=== PATIENT | male | born 1950 | race Caucasian/White ===

== ENCOUNTER → 2018-02-13 10:41 | Outpatient (CLI) | payer OTHER, SELFPAY ==
[2018-02-13 11:04] LABS: Add Manual Diff / Slide Review NO; Basophils Percent Auto 0.4 % (0-2); Eosinophils Percent Auto 0.7 % (2-4); Hematocrit 38.3 % (41-53); Hemoglobin 13.4 g/dL (13.5-17.5); Lymphocytes Percent Auto 13.7 % (25-40); Mean Corpuscular Hemoglobin 31.3 PG (26-34); Mean Corpuscular Volume 89.3 fL (80-100); Monocytes Percent Auto 5.9 % (3-14); Neutrophils Absolute Auto 5100 /uL (3000-5900); Neutrophils Percent Auto 79.3 % (50-75); Platelet Count 224 X10^3/uL (150-400); Red Blood Cell Count 4.29 X10^6/uL (4.5-5.9); Red Cell Distribution Width 12.4 % (11.6-14.8); White Blood Cell Count 6.5 X10^3/uL (4.5-11.0)
[2018-02-13 11:41] LABS: Alanine Aminotransferase 26 IU/L (21-72); Albumin 4.4 g/dL (3.5-5.0); Albumin Globulin Ratio 1.3 (1.0-2.8); Alkaline Phosphatase 57 U/L (38-126); Aspartate Aminotransferase 24 IU/L (17-59); BUN Creatinine Ratio 27.1 (6-22); Bilirubin Total 1.2 mg/dL (0.2-1.3); Blood Urea Nitrogen 19 mg/dL (9-20); Calcium 9.6 mg/dL (8.4-10.2); Carbon Dioxide 29 mmol/L (22-32); Chloride 103 mmol/L (98-107); Estimated Glomerular Filt Rate > 60.0 mL/min (>60); Globulin 3.3 g/dL (1.7-4.1); Glucose 100 mg/dL (80-110); HEMOLYSIS < 15 (0-50); Potassium 3.7 mmol/L (3.4-5.1); Sodium 142 mmol/L (137-145); Total Protein 7.7 g/dL (6.3-8.2)
[2018-02-13 12:38] LABS: Thyroid Stimulating Hormone 0.43 uIU/mL (0.47-4.68)
== END ==
PROVIDERS: PCP Family Medicine; Visit Provider Family Medicine
DX: R53.83 Other fatigue (principal)
CPT/HCPCS: 36415; 80053; 84439; 84443; 85025

== ENCOUNTER → 2018-02-17 08:02 | Outpatient (CLI) | payer OTHER, SELFPAY ==
--- NOTE | 2018-02-17 08:06 | DI.CT.S_ITS ---
PROCEDURE: CT HEAD/BRAIN WO CON INDICATIONS: DIFFICULTY WITH SPEECH TECHNIQUE: Noncontrast 4.5 mm thick angled axial sections acquired from the foramen magnum to the vertex, with coronal and sagittal reformats. For radiation dose reduction, the following was used: automated exposure control, adjustment of mA and/or kV according to patient size. COMPARISON: None. FINDINGS: Image quality: Excellent. CSF spaces: Basal cisterns are patent. No extra-axial fluid collections. Ventricles are normal in size and shape. Brain: No midline shift. No intracranial masses or hemorrhage. Russell-white matter interface is normal. Skull and face: Calvarium and visualized facial bones are intact, without suspicious lesions. Sinuses: Visualized sinuses and mastoids are clear. IMPRESSION: Source of current symptoms is not seen. No stroke or hemorrhage or mass identified. Dictated by: Darrell Serrano M.D. on 02/17/2018 at 8:54 Approved by: Darrell Serrano M.D. on 02/17/2018 at 8:56
== END ==
PROVIDERS: PCP Family Medicine; Visit Provider Family Medicine
DX: R47.9 Unspecified speech disturbances (principal)
CPT/HCPCS: 70450

== ENCOUNTER 2018-03-11 12:53 | Emergency (ER) | payer OTHER, SELFPAY ==
--- NOTE | 2018-03-11 13:00 | ED.ABDPAIN ---
HPI - Abdominal Pain <KALIN Guaman - Last Filed: 03/11/18 22:20> General Chief Complaint: Abdominal Pain Stated Complaint: cant pee or poop Time Seen by Provider: 03/11/18 12:58 History of Present Illness HPI narrative: 68-year-old male here for complaint of lower abdominal pain with difficulty having a bowel movement and urinating. Patient has had these symptoms for approximately a month and has seen his primary care provider for this he is currently taking Septra and [place] for a sebaceous cyst to his back for the last 3 days. Patient reports that if he sighs or yawns he is able to urinate better and has to sit to urinate. He denies any flank pain. No fevers no chills no nausea or vomiting. Positive p.o. intake. He states last bowel movement was this morning at 8 o'clock and was firm. He denies any trauma to the abdomen. He states the symptoms have not resolved since he was seen by his primary care provider for the same symptoms. MD complaint: abdominal pain Related Data Previous Rx's Medication Instructions Recorded glucosamine sulfate 500 mg tablet 1,000 mg PO BID #30 tab 02/13/18 multivitamin capsule 1 cap PO DAILY #30 cap 02/13/18 hydrocodone 5 mg-acetaminophen 325 1 tab PO Q6H PRN #20 tab 03/08/18 mg tablet sulfamethoxazole 800 1 tab PO BID 7 Days #14 tab 03/08/18 mg-trimethoprim 160 mg tablet magnesium citrate 296 ml PO .one time #296 ml 03/11/18 polyethylene glycol 3350 [Miralax] 17 gram PO DAILY #238 gram 03/11/18 Allergies Allergy/AdvReac Type Severity Reaction Status Date / Time No Known Drug Allergies Allergy Verified 03/11/18 13:05 Review of Systems <KALIN Guaman - Last Filed: 03/11/18 22:20> Constitutional Denies chills, Denies fever(s), Denies lethargy and Denies weakness Eyes Denies change in vision, Denies eye discharge, Denies irritation and Denies loss of vision ENT Ears, Nose, Mouth, and Throat: Denies change in voice, Denies neck pain and Denies sore throat Cardiovascular Denies chest pain, Denies irregular heart rhythm, Denies lightheadedness, Denies palpitations, Denies dyspnea, Denies dyspnea on exertion and Denies orthopnea Respiratory Denies cough, Denies dyspnea, Denies dyspnea on exertion and Denies wheezing Gastrointestinal Gastrointestinal: Reports abdominal pain and Reports constipation Genitourinary Reports difficulty urinating Musculoskeletal Denies neck pain Integumentary/Breasts Denies pruritus, Denies erythema, Denies rash and Denies wounds Neurologic Denies confusion, Denies loss of vision and Denies weakness Psychiatric Denies anxiety, Denies confusion, Denies depression, Denies homicidal ideation and Denies suicidal ideation Endocrine Denies palpitations Hematologic/Lymphatic Denies easy bruising Allergic/Immunologic Denies wheezing Exam <MARIAMA GuamanP - Last Filed: 03/11/18 22:20> Initial Vital Signs Initial Vital Signs: Vital Signs Temperature 98.4 F 03/11/18 13:05 Pulse Rate 82 03/11/18 13:05 Respiratory Rate 15 03/11/18 13:05 Blood Pressure 162/84 H 03/11/18 13:05 Pulse Oximetry 96 03/11/18 13:05 Const General: cooperative and well developed Nutritional Appearance: well nourished Orientation: alert, awake, oriented x3 and not confused [facility] Mouth: oral mucosae normal and moist mucous membranes Eyes Conjunctivae: conjunctivae normal Sclera: sclerae normal Pupils: PERRL EOM: EOM intact bilaterally Resp Effort & Inspection: normal respiratory effort, able to speak in complete sentences, no respiratory distress and no use of accessory muscles Auscultation: clear to auscultation bilaterally, no rales, no rhonchi and no wheezes Cardio Rate: regular rate Rhythm: regular rhythm Heart Sounds: no click, no gallops, no murmurs and no rubs GI Inspection: non-distended Palpation: soft, No hepatomegaly, No hernia, No mass, No pulsatile mass and tender (Suprapubic tenderness) Auscultation: normal bowel sounds General: No CVA tenderness Back/Spine/Pelvis Other: 1.5 cm sebaceous cyst to midline thoracic spine with no induration no fluctuance. Skin General: no rashes or lesions noted, No jaundice and No petechiae <Onel Kaba DO - Last Filed: 03/12/18 07:25> Initial Vital Signs Initial Vital Signs: Vital Signs Temperature 98.4 F 03/11/18 13:05 Pulse Rate 82 03/11/18 13:05 Respiratory Rate 15 03/11/18 13:05 Blood Pressure 162/84 H 03/11/18 13:05 Pulse Oximetry 96 03/11/18 13:05 Course <KALIN Guaman - Last Filed: 03/11/18 22:20> Orders Ordered: Discontinued Medications Sodium Chloride (Normal Saline 0.9%) 1,000 mls @ 150 mls/hr IV CONT ÓSCAR Last Infusion: 03/11/18 15:40 Dose: 0 mls/hr Admin: 03/11/18 13:52 Dose: 150 mls/hr Vital Signs - 8 hr 03/11/18 14:59 Pulse Rate 85 Respiratory Rate 14 Blood Pressure [Right Arm] 143/73 H Pulse Oximetry 97 <Onel Kaba DO - Last Filed: 03/12/18 07:25> Orders Ordered: Discontinued Medications Sodium Chloride (Normal Saline 0.9%) 1,000 mls @ 150 mls/hr IV CONT ÓSCAR Last Infusion: 03/11/18 15:40 Dose: 0 mls/hr Admin: 03/11/18 13:52 Dose: 150 mls/hr Vital Signs - 8 hr 03/11/18 14:59 Pulse Rate 85 Respiratory Rate 14 Blood Pressure [Right Arm] 143/73 H Pulse Oximetry 97 MDM - Abdominal Pain <KALIN Guaman - Last Filed: 03/11/18 22:20> Lab Data Result diagrams: 03/11/18 13:35 03/11/18 13:35 Lab Results 03/11/18 03/11/18 Range/Units 13:35 13:35 WBC 6.0 (4.5-11.0) X10^3/uL RBC 4.11 L (4.5-5.9) X10^6/uL Hgb 12.9 L (13.5-17.5) g/dL Hct 37.6 L (41-53) % MCV 91.4 (80-100) fL MCH 31.3 (26-34) PG MCHC 34.3 (30-36) % RDW 12.8 (11.6-14.8) % Plt Count 236 (150-400) X10^3/uL Neut % (Auto) 77.4 H (50-75) % Lymph % (Auto) 11.7 L (25-40) % [place] % (Auto) 9.6 (3-14) % Eos % (Auto) 0.8 L (2-4) % Baso % (Auto) 0.5 (0-2) % Neut # (Auto) 4600 (5766-7549) /uL Sodium 140 (137-145) mmol/L Potassium 4.1 (3.4-5.1) mmol/L Chloride 103 (98-107) mmol/L Carbon Dioxide 26 (22-32) mmol/L BUN 21 H (9-20) mg/dL Creatinine 0.90 (0.66-1.25) mg/dL Estimated GFR > 60.0 (>60) mL/min BUN/Creatinine Ratio 23.3 H (6-22) Glucose 97 (80-110) mg/dL Calcium 9.2 (8.4-10.2) mg/dL Total Bilirubin 1.2 (0.2-1.3) mg/dL AST 38 (17-59) IU/L ALT 24 (21-72) IU/L Alkaline Phosphatase 48 (38-126) U/L Total Protein 7.3 (6.3-8.2) g/dL Albumin 4.3 (3.5-5.0) g/dL Globulin 3.0 (1.7-4.1) g/dL Albumin/Globulin Ratio 1.4 (1.0-2.8) Lipase 50 (23-300) U/L Point of care testing: Urine Dip Bedside Urine Glucose Negative Bedside Urine Bilirubin - Negative Bedside Urine Ketone ++ 40 Urine Specific [place] 1.02 Bedside Urine Occult Blood - Negative Bedside Urine Protein - Negative Bedside Urine Urobilinogen - Negative Bedside Urine Nitrite - Negative [facility] Narrative Medical decision making narrative: CBC and Chem panel were obtained were unremarkable. Bladder scanner showed 500 mL of urine inside the bladder. Duran catheter was inserted with good drainage of a urine urinalysis was obtained was negative for urinary tract infection. CT of the abdomen was obtained and shows large amount of constipation. Constipation most likely exacerbated by a recent hydrocodone use. Mineral oil Fleet enema and magnesium citrate for the constipation. MiraLax is prescribed to help keep stools loose. Plenty of fluids. Follow up with primary care provider. Differential between BPH and large stool load causing decreased ability to urinate. Patient desired to have Duran catheter removed. Small mass is seen into the pancreas of unknown origin recommend continued monitoring to ensure area is stable. For any worsening symptoms return to the emergency room. <Onel Kaba, - Last Filed: 03/12/18 07:25> Lab Data Lab Results 03/11/18 03/11/18 Range/Units 13:35 13:35 WBC 6.0 (4.5-11.0) X10^3/uL RBC 4.11 L (4.5-5.9) X10^6/uL Hgb 12.9 L (13.5-17.5) g/dL Hct 37.6 L (41-53) % MCV 91.4 (80-100) fL MCH 31.3 (26-34) PG MCHC 34.3 (30-36) % RDW 12.8 (11.6-14.8) % Plt Count 236 (150-400) X10^3/uL Neut % (Auto) 77.4 H (50-75) % Lymph % (Auto) 11.7 L (25-40) % [place] % (Auto) 9.6 (3-14) % Eos % (Auto) 0.8 L (2-4) % Baso % (Auto) 0.5 (0-2) % Neut # (Auto) 4600 (6676-0620) /uL Sodium 140 (137-145) mmol/L Potassium 4.1 (3.4-5.1) mmol/L Chloride 103 (98-107) mmol/L Carbon Dioxide 26 (22-32) mmol/L BUN 21 H (9-20) mg/dL Creatinine 0.90 (0.66-1.25) mg/dL Estimated GFR > 60.0 (>60) mL/min BUN/Creatinine Ratio 23.3 H (6-22) Glucose 97 (80-110) mg/dL Calcium 9.2 (8.4-10.2) mg/dL Total Bilirubin 1.2 (0.2-1.3) mg/dL AST 38 (17-59) IU/L ALT 24 (21-72) IU/L Alkaline Phosphatase 48 (38-126) U/L Total Protein 7.3 (6.3-8.2) g/dL Albumin 4.3 (3.5-5.0) g/dL Globulin 3.0 (1.7-4.1) g/dL Albumin/Globulin Ratio 1.4 (1.0-2.8) Lipase 50 (23-300) U/L Point of care testing: Urine Dip Bedside Urine Glucose Negative Bedside Urine Bilirubin - Negative Bedside Urine Ketone ++ 40 Urine Specific [place] 1.02 Bedside Urine Occult Blood - Negative Bedside Urine Protein - Negative Bedside Urine Urobilinogen - Negative Bedside Urine Nitrite - Negative Discharge Plan Departure Patient Disposition: Home, Self-Care Clinical Impression: Constipation Discharge Date/Time: 03/11/18 15:48 Interventions: ED Discharge Assessment Last Done: 03/11/18 15:47 Instructions: DI for Constipation Activity Restrictions/Additional Instructions: Laboratory results today were unremarkable. CT of the abdomen shows large amount of stool indicating constipation. Constipation may be exacerbated by recent pain medications. Differential between enlarged prostate or a large amount of stool causing difficulty in urination. You are prescribed magnesium citrate a laxative use as directed along with over the counter mineral oil Fleet enema when you return home to facilitate having a bowel movement. You are prescribed MiraLax a laxative also use as directed. CT also showed a small mass to the pancreas which could be benign cyst however needs to be evaluated to ensure is stable and not growing inform primary care provider of this. Follow up with primary care in the next few days for re-evaluation. For any worsening symptoms return to the emergency room. Prescriptions: New magnesium citrate solution 296 ml PO .one time Qty: 296 RF: 0 polyethylene glycol 3350 [Miralax] 17 gram/dose powder 17 gram PO DAILY Qty: 238 RF: 0 No Action hydrocodone-acetaminophen 5-325 mg tablet 1 tab PO Q6H PRN (Reason: pain) Qty: 20 RF: 0 sulfamethoxazole-trimethoprim 800-160 mg tablet 1 tab PO BID 7 Days Qty: 14 RF: 0 multivitamin capsule 1 cap PO DAILY Qty: 30 RF: 0 glucosamine sulfate [Glucosamine] 500 mg tablet 1,000 mg PO BID Qty: 30 RF: 0 Referrals: Paco Magallanes MD [Primary Care Provider] - <Onel Kaba DO - Last Filed: 03/12/18 07:25> Cosign ED Attending Artemature Attestation: I was available for consultation during this patient's emergency department encounter
[2018-03-11 13:05] VITALS: BP 162/84; PULSE 82; RESP 15; TEMP 36.9; O2SAT 96; BMI 26.2
--- NOTE | 2018-03-11 13:17 | DI.CT.S_ITS ---
PROCEDURE: CT ABDOMEN PELVIS W CON INDICATIONS: Lower abdominal pain/suprapubic pain TECHNIQUE: After the administration of intravenous contrast, 5 mm thick sections acquired from the diaphragm to the symphysis. 5 mm coronal and sagittal reformats were acquired. For radiation dose reduction, the following was used: automated exposure control, adjustment of mA and/or kV according to patient size. COMPARISON: None. FINDINGS: Image quality: Excellent. ABDOMEN: Lung bases: Lung bases are clear. Heart size is normal. A small hiatal hernia is noted. Solid organs: Liver is normal in size and enhancement. Gallbladder is normal. Biliary system is non dilated. There is a thin-walled complex cystic mass in the pancreatic tail measuring 2.9 x 3.7 cm. There is no visible enhancement of the cyst. No pancreatic duct dilation in the pancreatic tail. No peripancreatic stranding. Spleen is normal in size and enhancement. No adrenal nodules. There are a couple of non-obstruction stones in the right renal pelvis measuring up to 4 mm. A 2.5 cm simple appearing cyst is noted in the inferior pole of the right kidney. Kidneys demonstrate normal size and enhancement, without hydronephrosis. Peritoneum and bowel: Bowel loops demonstrate normal wall thickness and caliber. There are scattered colonic diverticula. No evidence for acute diverticulitis. No free fluid or air. Nodes and vessels: No retroperitoneal or mesenteric adenopathy by size criteria. Aorta and inferior vena cava are normal in size. Miscellaneous: No ventral hernias. PELVIS: Genitourinary: Bladder wall thickness is normal. Miscellaneous: No inguinal hernias or adenopathy. Bones: No suspicious bony lesions. No vertebral body compression fractures. Degenerative changes in lumbar spine. IMPRESSION: 1. There is a Duran catheter within the bladder. There is air within the anterior aspect of the bladder lumen likely iatrogenic. No bladder wall thickening. Prostate is enlarged. 2. Large amount of stool in colon consistent with constipation. 3. A somewhat partially calcified cyst in the pancreatic tail measuring 2.9 x 2.7 cm. Recommend nonurgent MRI with and without contrast using pancreatic protocol for followup. 4. A couple of nonobstructive right renal calculi. There is a 2.5 cm simple appearing cyst in the right kidney. Dictated by: Diana Beltrán M.D. on 03/11/2018 at 15:06 Approved by: Diana Beltrán M.D. on 03/11/2018 at 15:19
[2018-03-11] MEDS: SODIUM CHLORIDE 0.9% 1,000 ML 150 ML IV (13:52)
[2018-03-11 13:55] LABS: Alanine Aminotransferase 24 IU/L (21-72); Albumin 4.3 g/dL (3.5-5.0); Albumin Globulin Ratio 1.4 (1.0-2.8); Alkaline Phosphatase 48 U/L (38-126); Aspartate Aminotransferase 38 IU/L (17-59); BUN Creatinine Ratio 23.3 (6-22); Bilirubin Total 1.2 mg/dL (0.2-1.3); Blood Urea Nitrogen 21 mg/dL (9-20); Calcium 9.2 mg/dL (8.4-10.2); Carbon Dioxide 26 mmol/L (22-32); Chloride 103 mmol/L (98-107); Estimated Glomerular Filt Rate > 60.0 mL/min (>60); Glucose 97 mg/dL (80-110); HEMOLYSIS 34 (0-50); Lipase 50 U/L (23-300); Potassium 4.1 mmol/L (3.4-5.1); Sodium 140 mmol/L (137-145); Total Protein 7.3 g/dL (6.3-8.2)
[2018-03-11 14:00] LABS: Add Manual Diff / Slide Review NO; Basophils Percent Auto 0.5 % (0-2); Eosinophils Percent Auto 0.8 % (2-4); Hematocrit 37.6 % (41-53); Hemoglobin 12.9 g/dL (13.5-17.5); Lymphocytes Percent Auto 11.7 % (25-40); Mean Corpuscular HGB Conc 34.3 % (30-36); Mean Corpuscular Hemoglobin 31.3 PG (26-34); Mean Corpuscular Volume 91.4 fL (80-100); Monocytes Percent Auto 9.6 % (3-14); Neutrophils Absolute Auto 4600 /uL (3000-5900); Neutrophils Percent Auto 77.4 % (50-75); Red Blood Cell Count 4.11 X10^6/uL (4.5-5.9); Red Cell Distribution Width 12.8 % (11.6-14.8)
[2018-03-11 14:59] VITALS: BP 143/73; PULSE 85; RESP 14; O2SAT 97
[2018-03-11 18:23] LABS: Platelet Count 236 X10^3/uL (150-400)
== END 2018-03-11 15:48 | disposition home or self-care (01) ==
PROVIDERS: Emergency Provider Nurse Practitioner Family; PCP Family Medicine
DX: K59.00 Constipation, unspecified (principal)
CPT/HCPCS: 36591; 51701; 51705; 51798; 74177; 80053; 81003; 83690; 85025; 96360; 96361; 99283; 99285; Q9967

== ENCOUNTER 2018-03-13 06:23 | Emergency (ER) | payer OTHER, SELFPAY ==
[2018-03-13 06:38] VITALS: BP 194/83; PULSE 101; RESP 18; TEMP 36.6; O2SAT 99; BMI 26.8
--- NOTE | 2018-03-13 06:47 | DI.RAD.S_ITS ---
PROCEDURE: XR KUB INDICATIONS: constipation TECHNIQUE: One view of the abdomen acquired. COMPARISON: None. FINDINGS: Surgical changes and devices: None. Bowel: Bowel gas pattern is normal except for generalized colonic obstipation bilaterally through the abdomen and pelvis. Soft tissues: No suspicious abdominal calcifications. Visualized solid organ contours appear normal in size. Bones: No suspicious bony lesions. IMPRESSION: Prominent bilateral colonic obstipation through the abdomen and pelvis extending to the rectum. Dictated by: Darrell Serrano M.D. on 03/13/2018 at 8:22 Approved by: Darrell Serrano M.D. on 03/13/2018 at 8:22
--- NOTE | 2018-03-13 07:08 | ED.MALEGU ---
HPI - Male Genitourinary General Chief complaint: Urogenital-Male Stated complaint: CHECKING BACK IN FOR PAIN/CATHETER History of Present Illness HPI Narrative: HPI 68-year-old male with history of constipation and recent urinary retention presents for evaluation of inability urinate for 24 hours and decreased stooling. Patient reports he is had long-standing issues with constipation, this was worsened when he received a [place] prescription of 20 tablets for painful small abscess on his back. The patient has completed these medications but as had a week with minimal stooling. Patient reports the [place] exacerbated his constipation. Patient denies back pain, notes chronic decreased urine stream, denies change in perineal sensation, or overflow incontinence. M/S/F/SocHx notable for: please see HPI; remainder reviewed with patient and in chart. ROS: Negative constitutional, eye, cardiovascular, pulmonary, GI, , MSK, skin, neurologic, psychiatric, endocrine unless noted in the HPI. Exam Gen: Pleasant, non-toxic appearing, resting comfortably. HEENT: NC, AT, PEERL, EOMI. Resp: Clear to auscultation bilaterally, normal work of breathing, no accessory muscle usage. Card: Regular rate and rhythm with no murmurs, rubs, or gallops, extremities warm and well perfused. GI: Non-tender to palpation throughout all quadrants, no focal tenderness at McBurney's point, negative Diallo's sign, mild diffuse fullness/distention, no rebound or guarding. : No suprapubic tenderness to palpation. MSK: No visible deformities, strength and tone without visually appreciable deficit. Skin: Normal color with no visible lesions. Neuro: AO x 3, no facial asymmetry, vision and hearing WNL. Psych: Mood and affect appropriate. Labs / Imaging: pending. MDM Previous chart, nursing note, labs, imaging, and vitals reviewed. A: 68-year-old male with history of constipation and recent urinary retention presents for evaluation of inability urinate for 24 hours and decreased stooling. Initial evaluation and management the patient's urinary retention performed prior to patient care transferred to Dr. Kaba, the oncoming ED physician. Straight catheterization with urinalysis was ordered as well as a CBC and CMP as well as KB to evaluate for stool burden. Glycerin suppositories, lactulose, and a soapsuds enema were also ordered. Tentatively suspect urinary retention due to likely BPH and constipation, further evaluation and expansion of the differential as appropriate deferred to Dr. Kaba. Impression: constipation, urinary retention (please reference below for remainder of encounter information) Related Data Previous Rx's Medication Instructions Recorded glucosamine sulfate 500 mg tablet 1,000 mg PO BID #30 tab 02/13/18 multivitamin capsule 1 cap PO DAILY #30 cap 02/13/18 hydrocodone 5 mg-acetaminophen 325 1 tab PO Q6H PRN #20 tab 03/08/18 mg tablet sulfamethoxazole 800 1 tab PO BID 7 Days #14 tab 03/08/18 mg-trimethoprim 160 mg tablet magnesium citrate 296 ml PO .one time #296 ml 03/11/18 polyethylene glycol 3350 [Miralax] 17 gram PO DAILY #238 gram 03/11/18 Allergies Allergy/AdvReac Type Severity Reaction Status Date / Time No Known Drug Allergies Allergy Verified 03/11/18 13:05 [facility] Family History Sister Hypothyroidism Father No problems noted. Mother No problems noted. Social History Smoking Status: Never smoker Exam Initial Vital Signs Initial Vital Signs: Vital Signs Temperature 97.9 F 03/13/18 06:38 Pulse Rate 101 H 03/13/18 06:38 Respiratory Rate 18 03/13/18 06:38 Blood Pressure 194/83 H 03/13/18 06:38 Pulse Oximetry 99 03/13/18 06:38 Course Orders Ordered: ED Orders 03/13/18 06:47 XR KUB Stat Complete Blood Count AUTO DIFF Stat Comprehensive Metabolic Panel Stat Urinalysis and Microscopic Stat Discontinued Medications Glycerin (Sani-Supp) 2 each NV NOW ONE Stop: 03/13/18 06:48 Lactulose (Enulose) 20 gm PO NOW ONE Stop: 03/13/18 06:48 Vital Signs - 8 hr 03/13/18 06:38 Temperature 97.9 F Pulse Rate 101 H Respiratory Rate 18 Blood Pressure 194/83 H Pulse Oximetry 99 Discharge Plan Departure Prescriptions: No Action hydrocodone-acetaminophen 5-325 mg tablet 1 tab PO Q6H PRN (Reason: pain) Qty: 20 RF: 0 sulfamethoxazole-trimethoprim 800-160 mg tablet 1 tab PO BID 7 Days Qty: 14 RF: 0 multivitamin capsule 1 cap PO DAILY Qty: 30 RF: 0 glucosamine sulfate [Glucosamine] 500 mg tablet 1,000 mg PO BID Qty: 30 RF: 0 magnesium citrate solution 296 ml PO .one time Qty: 296 RF: 0 polyethylene glycol 3350 [Miralax] 17 gram/dose powder 17 gram PO DAILY Qty: 238 RF: 0
[2018-03-13] MEDS: LACTULOSE 20 GM/30 ML SOLUTION PO (07:22)
[2018-03-13] MEDS: GLYCERIN SUPP ADULT 1 SUPP 2 EACH PR (07:22)
[2018-03-13 07:32] LABS: Appearance Urine UA CLEAR; Bilirubin Urine UA NEGATIVE (NEGATIVE); Color Urine UA YELLOW; Glucose Urine UA NEGATIVE (Normal); Ketones Urine UA TRACE (NEGATIVE); Leukocyte Esterase Urine UA NEGATIVE (NEGATIVE); Nitrite Urine UA Negative (Negative); Occult Blood Urine UA NEGATIVE (Negative); Protein Urine UA NEGATIVE (Negative)
[2018-03-13 07:40] LABS: Bacteria Urine Few (2-10); Culture Indicated Urine Cult Not Indicated; RBC Urine 0-1/HPF (0-5/HPF); WBC Urine 0-1/HPF (0-5/HPF)
[2018-03-13 08:09] LABS: BUN Creatinine Ratio 21.3 (6-22); Blood Urea Nitrogen 17 mg/dL (9-20); Calcium 9.5 mg/dL (8.4-10.2); Carbon Dioxide 27 mmol/L (22-32); Chloride 103 mmol/L (98-107); Estimated Glomerular Filt Rate > 60.0 mL/min (>60); Glucose 110 mg/dL (80-110); HEMOLYSIS < 15 (0-50); Potassium 3.8 mmol/L (3.4-5.1); Sodium 140 mmol/L (137-145)
[2018-03-13 09:13] VITALS: BP 128/77; PULSE 92; RESP 20; O2SAT 99
== END 2018-03-13 09:38 | disposition home or self-care (01) ==
PROVIDERS: Emergency Medicine; Emergency Provider Emergency Medicine; PCP Family Medicine
DX: R33.9 Retention of urine, unspecified (principal)
CPT/HCPCS: 51701; 74018; 80048; 81001; 99284

== ENCOUNTER 2018-03-20 21:23 | Emergency (ER) | payer OTHER, SELFPAY ==
[2018-03-20 21:34] VITALS: BP 191/107; PULSE 87; RESP 18; TEMP 36.4; O2SAT 100; BMI 25.7
--- NOTE | 2018-03-20 21:41 | ED.MALEGU ---
HPI - Male Genitourinary General Chief complaint: Urogenital-Male Stated complaint: TROUBLE URINATION Time Seen by Provider: 03/20/18 21:25 Source: patient Mode of arrival: ambulatory Limitations: no limitations History of Present Illness HPI Narrative: Patient returns to the emergency department with chief complaint inability to urinate over the course of the afternoon. He had been seen here on March 13 for inability to urinate and was determined to have urinary retention. He had a Duran catheter and it was just removed today by his primary care provider. He was able to urinate this afternoon but lost the ability to later in the day. He denies other neurologic symptoms such as numbness, tingling or weakness. He has no back pain or foot drop. About 2 weeks ago the patient was started an opioid pain medication for an abscess on his back which was eventually drained. Additionally he had some constipation which has since resolved. Onset (ago): hour(s) Duration: constant Related Data Previous Rx's Medication Instructions Recorded glucosamine sulfate 500 mg tablet 1,000 mg PO BID #30 tab 02/13/18 multivitamin capsule 1 cap PO DAILY #30 cap 02/13/18 magnesium citrate 296 ml PO .one time #296 ml 03/11/18 polyethylene glycol 3350 [Miralax] 17 gram PO DAILY #238 gram 03/11/18 docusate sodium 100 mg capsule 100 mg PO BID #60 cap 03/13/18 hydrocodone 5 mg-acetaminophen 325 1 tab PO Q6H PRN #20 tab 03/13/18 mg tablet tamsulosin 0.4 mg capsule 0.4 mg PO DAILY #30 cap 03/13/18 zolpidem 10 mg tablet 10 mg PO BEDTIME PRN #20 tab 03/20/18 Allergies Allergy/AdvReac Type Severity Reaction Status Date / Time No Known Drug Allergies Allergy Verified 03/20/18 12:32 Review of Systems Review of Systems All systems reviewed & are unremarkable except as noted in HPI and below Constitutional Denies chills, Denies fever(s), Denies lethargy and Denies weakness Eyes Denies change in vision, Denies eye discharge, Denies irritation and Denies loss of vision ENT Ears, Nose, Mouth, and Throat: Denies change in voice, Denies neck pain and Denies sore throat Cardiovascular Denies chest pain, Denies irregular heart rhythm, Denies lightheadedness, Denies palpitations, Denies dyspnea, Denies dyspnea on exertion and Denies orthopnea Respiratory Denies cough, Denies dyspnea, Denies dyspnea on exertion and Denies wheezing Gastrointestinal Gastrointestinal: Denies abdominal pain, Denies change in bowel habits, Denies diarrhea, Denies nausea and Denies vomiting Genitourinary Denies hematuria, Denies flank pain, Denies urinary incontinence and Denies urinary urgency Comments: Suprapubic tenderness and inability to urinate Musculoskeletal Denies neck pain Integumentary/Breasts Denies pruritus, Denies erythema, Denies rash and Denies wounds Neurologic Denies confusion, Denies loss of vision and Denies weakness Psychiatric Denies anxiety, Denies confusion, Denies depression, Denies homicidal ideation and Denies suicidal ideation Endocrine Denies palpitations Hematologic/Lymphatic Denies easy bruising Allergic/Immunologic Denies wheezing PFSH Social History Smoking Status: Never smoker Exam Narrative Exam Narrative: Pleasant 68-year-old male in mild distress Initial Vital Signs Initial Vital Signs: Vital Signs Temperature 97.6 F 03/20/18 21:34 Pulse Rate 87 03/20/18 21:34 Respiratory Rate 18 03/20/18 21:34 Blood Pressure 191/107 H 03/20/18 21:34 Pulse Oximetry 100 03/20/18 21:34 Const General: cooperative and well developed Nutritional Appearance: well nourished Orientation: alert, awake, oriented x3 and not confused [facility] Head: normocephalic and atraumatic Ears: external ears normal and TM's normal bilaterally Nose: external nose normal and No nasal discharge Face and sinus: sinuses nontender, face symmetric, no sinus tenderness and No dry mucous membranes Mouth: oral mucosae normal and moist mucous membranes Teeth and gingiva: dentition normal Throat: tonsils normal and uvula midline Resp Effort & Inspection: normal respiratory effort, able to speak in complete sentences, no respiratory distress and no use of accessory muscles Auscultation: clear to auscultation bilaterally, no rales, no rhonchi and no wheezes GI Inspection: non-distended Palpation: soft, no hepatosplenomegaly, No guarding, No pulsatile mass and No tender Auscultation: normal bowel sounds Skin General: no rashes or lesions noted, No jaundice and No petechiae Extrem General: full ROM, no clubbing, cyanosis or edema, no pedal edema and no calf tenderness Course Reevaluation(s) Reevaluation #1: Bladder scan notes over 700 mL of urine. Duran catheter placed patient feels much better. Blood pressure normalized Vital Signs - 8 hr 03/20/18 21:34 03/20/18 22:14 Temperature 97.6 F Pulse Rate 87 67 Respiratory Rate 18 14 Blood Pressure 191/107 H Blood Pressure [Right Arm] 135/79 H Pulse Oximetry 100 99 Discharge Plan Departure Patient Disposition: Home, Self-Care Clinical Impression: Acute urinary retention Discharge Date/Time: 03/20/18 22:34 Instructions: DI for Urinary Retention in Men Activity Restrictions/Additional Instructions: *You have been diagnosed with [ acute urinary retention, likely to recent opioid pain medication use ] *What to do: *Follow up with your primary care provider in 2-3 days, call tomorrow for an appointment. Additionally I have included contact info for Urology *Return to ER if you should have any new, worsening or concerning symptoms Prescriptions: No Action tamsulosin 0.4 mg capsule,extended release 24hr 0.4 mg PO DAILY Qty: 30 RF: 2 docusate sodium 100 mg capsule 100 mg PO BID Qty: 60 RF: 1 hydrocodone-acetaminophen 5-325 mg tablet 1 tab PO Q6H PRN (Reason: pain) Qty: 20 RF: 0 multivitamin capsule 1 cap PO DAILY Qty: 30 RF: 0 glucosamine sulfate [Glucosamine] 500 mg tablet 1,000 mg PO BID Qty: 30 RF: 0 zolpidem 10 mg tablet 10 mg PO BEDTIME PRN (Reason: insomnia) Qty: 20 RF: 0 magnesium citrate solution 296 ml PO .one time Qty: 296 RF: 0 polyethylene glycol 3350 [Miralax] 17 gram/dose powder 17 gram PO DAILY Qty: 238 RF: 0 Referrals: Ariela Ferraro MD [Physician] - Paco Magallanes MD [Primary Care Provider] -
--- NOTE | 2018-03-20 21:53 | PC.NURSE ---
Had urinary catheter in place for 8 days due to urinary retention likely caused by use of pain pills - catheter removed at PMD's office earlier today - last void was around 1900 - has been drinking a lot of water to counteract constipation and retention caused by pain medication
[2018-03-20 22:14] VITALS: BP 135/79; PULSE 67; RESP 14; O2SAT 99
== END 2018-03-20 22:34 | disposition home or self-care (01) ==
PROVIDERS: Emergency Provider Emergency Medicine; PCP Family Medicine
DX: R33.8 Other retention of urine (principal)
CPT/HCPCS: 51701; 51798; 99283

== ENCOUNTER 2018-03-24 21:45 | Emergency (ER) | payer OTHER, SELFPAY ==
[2018-03-24 21:58] VITALS: BP 149/77; PULSE 82; RESP 15; TEMP 36.1; O2SAT 99
--- NOTE | 2018-03-24 22:16 | PC.NURSE ---
H/O indwelling catheter x 4 r/t urinary retention after surgery. Had cath removed today and voided small amount x 4 but no void since 1799.
[2018-03-24 22:21] LABS: Bacteria Urine None Seen; RBC Urine None Seen (0-5/HPF); WBC Urine None Seen (0-5/HPF)
[2018-03-24 22:22] LABS: Appearance Urine UA CLEAR; Bilirubin Urine UA NEGATIVE (NEGATIVE); Color Urine UA YELLOW; Glucose Urine UA NEGATIVE (Normal); Ketones Urine UA TRACE (NEGATIVE); Leukocyte Esterase Urine UA NEGATIVE (NEGATIVE); Nitrite Urine UA Negative (Negative); Occult Blood Urine UA NEGATIVE (Negative); Protein Urine UA NEGATIVE (Negative); Specific Gravity Urine UA <=1.005 (1.000-1.035); Urobilinogen Urine UA 0.2 E.U./dL (0.2)
[2018-03-24 22:47] LABS: Culture Indicated Urine Cult Not Indicated
[2018-03-24 23:18] VITALS: BP 130/68; PULSE 72; RESP 12; O2SAT 99
--- NOTE | 2018-03-25 02:04 | ED_ITS ---
HPI - Male Genitourinary General Chief complaint: Urogenital-Male Stated complaint: states Need a catheter inserted Time Seen by Provider: 03/24/18 21:50 Source: patient Mode of arrival: ambulatory Limitations: no limitations History of Present Illness HPI Narrative: 68-year-old male with known enlarged prostate and history of urinary retention presents with the chief complaint suprapubic tenderness and inability to urinate over the course of the day. He just was seen by Urology today and had a Duran catheter removed. He states he has been unable to urinate over the course of the evening. He denies any fever or chills nor nausea or vomiting. He denies chest pain or shortness of breath. Onset (ago): hour(s) Duration: constant Location: abdomen Severity: moderate Quality: aching Relieving factors: none Exacerbating factors: none Related Data Previous Rx's Medication Instructions Recorded glucosamine sulfate 500 mg tablet 1,000 mg PO BID #30 tab 02/13/18 multivitamin capsule 1 cap PO DAILY #30 cap 02/13/18 magnesium citrate 296 ml PO .one time #296 ml 03/11/18 polyethylene glycol 3350 [Miralax] 17 gram PO DAILY #238 gram 03/11/18 docusate sodium 100 mg capsule 100 mg PO BID #60 cap 03/13/18 hydrocodone 5 mg-acetaminophen 325 1 tab PO Q6H PRN #20 tab 03/13/18 mg tablet tamsulosin 0.4 mg capsule 0.4 mg PO DAILY #30 cap 03/13/18 zolpidem 10 mg tablet 10 mg PO BEDTIME PRN #20 tab 03/20/18 Allergies Allergy/AdvReac Type Severity Reaction Status Date / Time No Known Drug Allergies Allergy Verified 03/24/18 21:58 Review of Systems Review of Systems All systems reviewed & are unremarkable except as noted in HPI and below Constitutional Denies chills, Denies fever(s), Denies lethargy and Denies weakness Eyes Denies change in vision, Denies eye discharge, Denies irritation and Denies loss of vision ENT Ears, Nose, Mouth, and Throat: Denies change in voice, Denies neck pain and Denies sore throat Cardiovascular Denies chest pain, Denies irregular heart rhythm, Denies lightheadedness, Denies palpitations, Denies dyspnea, Denies dyspnea on exertion and Denies orthopnea Respiratory Denies cough, Denies dyspnea, Denies dyspnea on exertion and Denies wheezing Gastrointestinal Gastrointestinal: Denies abdominal pain, Denies change in bowel habits, Denies diarrhea, Denies nausea and Denies vomiting Genitourinary Denies hematuria, Reports difficulty urinating, Denies flank pain, Denies urinary incontinence and Denies urinary urgency Musculoskeletal Denies neck pain Integumentary/Breasts Denies pruritus, Denies erythema, Denies rash and Denies wounds Neurologic Denies confusion, Denies loss of vision and Denies weakness Psychiatric Denies anxiety, Denies confusion, Denies depression, Denies homicidal ideation and Denies suicidal ideation Endocrine Denies palpitations Hematologic/Lymphatic Denies easy bruising Allergic/Immunologic Denies wheezing PFSH Social History Smoking Status: Never smoker Exam Initial Vital Signs Initial Vital Signs: Vital Signs Temperature 97.0 F L 03/24/18 21:58 Pulse Rate 82 03/24/18 21:58 Respiratory Rate 15 03/24/18 21:58 Blood Pressure 149/77 H 03/24/18 21:58 Pulse Oximetry 99 03/24/18 21:58 Const General: cooperative and well developed Nutritional Appearance: well nourished Orientation: alert, awake, oriented x3 and not confused Eyes General: appearance normal, both eyes and all related structures Eyelids: eyelids normal Conjunctivae: conjunctivae normal Sclera: sclerae normal Pupils: PERRL EOM: EOM intact bilaterally Resp Effort & Inspection: normal respiratory effort, able to speak in complete sentences, no respiratory distress and no use of accessory muscles Auscultation: clear to auscultation bilaterally, no rales, no rhonchi and no wheezes GI Inspection: non-distended Palpation: soft, no hepatosplenomegaly, No guarding, No pulsatile mass and tender (Mild suprapubic tenderness) Auscultation: normal bowel sounds Back/Spine/Pelvis Back: No CVA tenderness Cervical Spine: cervical ROM normal and No pain with cervical ROM Thoracic/Lumbar Spine: thoracic and lumbar spine normal to inspection Skin General: no rashes or lesions noted, No jaundice and No petechiae Extrem General: full ROM, no clubbing, cyanosis or edema, no pedal edema and no calf tenderness Course Orders Ordered: ED Orders 03/24/18 22:10 Urinalysis and Microscopic Stat Reevaluation(s) Reevaluation #1: Large amount of urine residual after bladder scan. Duran catheter placed and patient feels near complete resolution of symptoms Vital Signs - 8 hr 03/24/18 21:58 03/24/18 23:18 Temperature 97.0 F L Pulse Rate 82 72 Respiratory Rate 15 12 Blood Pressure 149/77 H Blood Pressure [Left Arm] 130/68 H Pulse Oximetry 99 99 MDM - Male Genitourinary Lab Data Lab Results 03/24/18 Range/Units 22:10 Urine Color Yellow Urine Appearance Clear Urine pH 7.0 (4.5-8.0) Ur Specific [place] <=1.005 (1.000-1.035) Urine Protein Negative (Negative) Urine Glucose (UA) Negative (Normal) g/dL Urine Ketones Trace H (NEGATIVE) Urine Occult Blood Negative (Negative) Urine Nitrate Negative (Negative) Urine Bilirubin Negative (NEGATIVE) Urine Urobilinogen 0.2 (0.2) E.U./dL Ur Leukocyte Esterase Negative (NEGATIVE) Urine RBC None seen (0-5/HPF) Urine WBC None seen (0-5/HPF) Urine Bacteria None seen (None) Ur Culture Indicated? Cult not indicated Micro UA Comment Not Reportable Discharge Plan Departure Patient Disposition: Home, Self-Care Clinical Impression: Acute urinary retention Discharge Date/Time: 03/24/18 23:38 Interventions: ED Discharge Assessment Last Done: 03/24/18 23:37 Instructions: DI for Urinary Retention in Men Activity Restrictions/Additional Instructions: *You have been diagnosed with [acute urinary retention] *What to do: *Take medications as directed *Follow up with your primary care provider in 2-3 days, call for an appointment. Let them know you were seen in the Emergency Department and that we ask that you be seen in follow up *Return to ER if you should have any new, worsening or concerning symptoms , such as [ shortness of breath, fever or chills] Prescriptions: No Action tamsulosin 0.4 mg capsule,extended release 24hr 0.4 mg PO DAILY Qty: 30 RF: 2 docusate sodium 100 mg capsule 100 mg PO BID Qty: 60 RF: 1 hydrocodone-acetaminophen 5-325 mg tablet 1 tab PO Q6H PRN (Reason: pain) Qty: 20 RF: 0 multivitamin capsule 1 cap PO DAILY Qty: 30 RF: 0 glucosamine sulfate [Glucosamine] 500 mg tablet 1,000 mg PO BID Qty: 30 RF: 0 zolpidem 10 mg tablet 10 mg PO BEDTIME PRN (Reason: insomnia) Qty: 20 RF: 0 magnesium citrate solution 296 ml PO .one time Qty: 296 RF: 0 polyethylene glycol 3350 [Miralax] 17 gram/dose powder 17 gram PO DAILY Qty: 238 RF: 0 Referrals: Ariela Ferraro MD [Physician] - Paco Magallanes MD [Primary Care Provider] -
== END 2018-03-24 23:38 | disposition home or self-care (01) ==
PROVIDERS: Emergency Provider Emergency Medicine; PCP Family Medicine
DX: R33.9 Retention of urine, unspecified (principal)
CPT/HCPCS: 51701; 51798; 81001; 99283

== ENCOUNTER 2018-04-25 05:05 | Emergency (ER) | payer OTHER, SELFPAY ==
[2018-04-25 05:09] VITALS: BP 174/101; PULSE 102; RESP 16; TEMP 37; O2SAT 100; BMI 54.1
--- NOTE | 2018-04-25 05:13 | PC.NURSE ---
pt states catheter is leaking. catheter placed 7-18 in preperation for surgery. Pt requesting changing catheter. denies: pain, fever, any abdominal discomfort. reports catheter placed for urinairy retention.
--- NOTE | 2018-04-25 05:16 | PC.NURSE ---
this nurse present when Kathya MELLO removed and replaced catheter.
[2018-04-25 05:32] LABS: Appearance Urine UA CLEAR; Bilirubin Urine UA NEGATIVE (NEGATIVE); Glucose Urine UA NEGATIVE (Normal); Ketones Urine UA NEGATIVE (NEGATIVE); Leukocyte Esterase Urine UA 2+ (NEGATIVE); Nitrite Urine UA Negative (Negative); Occult Blood Urine UA 2+ (Negative); Protein Urine UA NEGATIVE (Negative); RBC Urine None Seen (0-5/HPF); Specific Gravity Urine UA <=1.005 (1.000-1.035); Urobilinogen Urine UA 0.2 E.U./dL (0.2)
--- NOTE | 2018-04-25 05:32 | PC.NURSE ---
provider aware of hypertention
[2018-04-25 05:46] LABS: Color Urine UA Straw
[2018-04-25 05:48] LABS: Bacteria Urine Few (2-10); WBC Urine 5-10/HPF (0-5/HPF)
[2018-04-25 05:49] LABS: Culture Indicated Urine Specimen Cultured
--- NOTE | 2018-04-25 05:51 | ED.MALEGU ---
HPI - Male Genitourinary General Chief complaint: Urogenital-Male Stated complaint: Cath leaking Time Seen by Provider: 04/25/18 05:20 Source: patient Mode of arrival: ambulatory Limitations: no limitations History of Present Illness HPI Narrative: Patient is a 68-year-old male who presents with his need for Duran catheter bag changed. He said he noticed it leaking. Initially was placed 03/24/2018. He is scheduled for cystoscopy this week with Urology. He has not had any fever chills abdominal pain nausea or vomiting. His he does want a catheter looked at. He has not had any blood or hematuria. Related Data Previous Rx's Medication Instructions Recorded glucosamine sulfate 500 mg tablet 1,000 mg PO BID #30 tab 02/13/18 multivitamin capsule 1 cap PO DAILY #30 cap 02/13/18 magnesium citrate 296 ml PO .one time #296 ml 03/11/18 polyethylene glycol 3350 [Miralax] 17 gram PO DAILY #238 gram 03/11/18 docusate sodium 100 mg capsule 100 mg PO BID #60 cap 03/13/18 hydrocodone 5 mg-acetaminophen 325 1 tab PO Q6H PRN #20 tab 03/13/18 mg tablet tamsulosin 0.4 mg capsule 0.4 mg PO DAILY #30 cap 03/13/18 diazepam 5 mg tablet 5 mg PO BEDTIME PRN #30 tab 04/05/18 sulfamethoxazole-trimethoprim 1 tab PO BID 7 Days #14 tab 04/25/18 [Bactrim DS] Allergies Allergy/AdvReac Type Severity Reaction Status Date / Time No Known Drug Allergies Allergy Verified 03/24/18 21:58 Review of Systems Review of Systems GENERAL: Denies chills,fever HEENT: Denies throat pain RESPIRATORY: Denies dyspnea, cough, wheezing CARDIOVASCULAR: Denies chest pain, palpitations : See HPI GASTROINTESTINAL: Denies nausea, vomiting MUSCULOSKELETAL: Denies extremity pain, injury SKIN: No rash, no laceration, no pruritus NEUROLOGIC: Denies weakness, dizziness, headache, numbness 8 point review of systems is negative except for those stated above and HPI [facility] Medical History Sebaceous cyst (Chronic) Excessive daytime sleepiness (Chronic) Low back pain (Chronic) Weak urine stream (Chronic) Difficulty passing stool (Chronic) Fatigue (Chronic) Difficulty with speech (Chronic) Constipation (Inactive) Surgical History S/P inguinal hernia repair (Chronic) Social History Smoking Status: Never smoker Exam Initial Vital Signs Initial Vital Signs: Vital Signs Temperature 98.6 F 04/25/18 05:09 Pulse Rate 102 H 04/25/18 05:09 Respiratory Rate 16 04/25/18 05:09 Blood Pressure 174/101 H 04/25/18 05:09 Pulse Oximetry 100 04/25/18 05:09 GENERAL: Well-appearing, well-nourished and in no acute distress. HEENT: Head atraumatic,EOMI, pupils reactive, neck is supple CARDIOVASCULAR: Regular rate and rhythm without murmurs, rubs or gallops. RESPIRATORY: Breath sounds equal bilaterally, no wheezes rales or rhonchi. ABDOMEN: Soft, nontender. Normoactive bowel sounds all 4 quadrants. No guarding or rebound. : Duran catheter in placed no CVA tenderness or suprapubic pain EXTREMITIES: Normal range of motion, no clubbing or edema. Neurovascularly intact NEUROLOGICAL: Alert and oriented x4.Normal gait and speech. SKIN: Warm, dry, no laceration, no petechiae, no rashes or lesions. Course Orders Ordered: ED Orders 04/25/18 05:20 Urinalysis and Microscopic Stat Urine Culture Stat Discontinued Medications Trimethoprim/Sulfamethoxazole (Bactrim Ds Prepack) 1 bottle [facility] [place] Stop: 04/25/18 05:56 Last Admin: 04/25/18 06:01 Dose: 1 bottle Vital Signs - 8 hr 04/25/18 05:09 04/25/18 06:08 Temperature 98.6 F Pulse Rate 102 H 88 Respiratory Rate 16 18 Blood Pressure 174/101 H 146/76 H Pulse Oximetry 100 98 MDM - Male Genitourinary Lab Data Attestation: I reviewed the patient's lab results. Lab Results 04/25/18 Range/Units 05:20 Urine Color Straw Urine Appearance Clear Urine pH 7.0 (4.5-8.0) Ur Specific [place] <=1.005 (1.000-1.035) Urine Protein Negative (Negative) Urine Glucose (UA) Negative (Normal) g/dL Urine Ketones Negative (NEGATIVE) Urine Occult Blood 2+ H (Negative) Urine Nitrate Negative (Negative) Urine Bilirubin Negative (NEGATIVE) Urine Urobilinogen 0.2 (0.2) E.U./dL Ur Leukocyte Esterase 2+ H (NEGATIVE) Urine RBC None seen (0-5/HPF) Urine WBC 5-10/hpf H (0-5/HPF) Urine Bacteria Few (2-10) H (None) Ur Culture Indicated? Specimen cultured MDM Narrative Medical decision making narrative: Patient is due for cystoscopy this week I Will put him on antibiotics. It is possibly is a colonized infection. Discharge Plan Departure Patient Disposition: Home, Self-Care Clinical Impression: UTI (urinary tract infection) Interventions: ED Discharge Assessment Last Done: 04/25/18 06:08 Instructions: DI for Urinary Tract Infection (UTI) Activity Restrictions/Additional Instructions: *You have been diagnosed with UTI *Continue to take medications as directed Bactrim 1 pill twice a day for 7 days- faxed to [facility] in [place] *Follow up with your primary care provider in 2-3 days *follow up with Urology this week as scheduled *Return to ER if you should have fever, abdominal pain or any new, worsening or concerning symptoms Prescriptions: New sulfamethoxazole-trimethoprim [Bactrim DS] 800-160 mg tablet 1 tab PO BID 7 Days Qty: 14 RF: 0 No Action tamsulosin 0.4 mg capsule,extended release 24hr 0.4 mg PO DAILY Qty: 30 RF: 2 docusate sodium 100 mg capsule 100 mg PO BID Qty: 60 RF: 1 hydrocodone-acetaminophen 5-325 mg tablet 1 tab PO Q6H PRN (Reason: pain) Qty: 20 RF: 0 multivitamin capsule 1 cap PO DAILY Qty: 30 RF: 0 glucosamine sulfate [Glucosamine] 500 mg tablet 1,000 mg PO BID Qty: 30 RF: 0 diazepam 5 mg tablet 5 mg PO BEDTIME PRN (Reason: sleep) Qty: 30 RF: 0 magnesium citrate solution 296 ml PO .one time Qty: 296 RF: 0 polyethylene glycol 3350 [Miralax] 17 gram/dose powder 17 gram PO DAILY Qty: 238 RF: 0
--- NOTE | 2018-04-25 05:54 | ED_ITS ---
HPI - Male Genitourinary General Chief complaint: Urogenital-Male Stated complaint: Cath leaking Time Seen by Provider: 04/25/18 05:20 Source: patient Mode of arrival: ambulatory Limitations: no limitations History of Present Illness HPI Narrative: Patient is a 68-year-old male who presents with his need for Duran catheter bag changed. He said he noticed it leaking. Initially was placed 03/24/2018. He is scheduled for cystoscopy this week with Urology. He has not had any fever chills abdominal pain nausea or vomiting. His he does want a catheter looked at. He has not had any blood or hematuria. Related Data Previous Rx's Medication Instructions Recorded glucosamine sulfate 500 mg tablet 1,000 mg PO BID #30 tab 02/13/18 multivitamin capsule 1 cap PO DAILY #30 cap 02/13/18 magnesium citrate 296 ml PO .one time #296 ml 03/11/18 polyethylene glycol 3350 [Miralax] 17 gram PO DAILY #238 gram 03/11/18 docusate sodium 100 mg capsule 100 mg PO BID #60 cap 03/13/18 hydrocodone 5 mg-acetaminophen 325 1 tab PO Q6H PRN #20 tab 03/13/18 mg tablet tamsulosin 0.4 mg capsule 0.4 mg PO DAILY #30 cap 03/13/18 diazepam 5 mg tablet 5 mg PO BEDTIME PRN #30 tab 04/05/18 sulfamethoxazole-trimethoprim 1 tab PO BID 7 Days #14 tab 04/25/18 [Bactrim DS] Allergies Allergy/AdvReac Type Severity Reaction Status Date / Time No Known Drug Allergies Allergy Verified 03/24/18 21:58 Review of Systems Review of Systems GENERAL: Denies chills,fever HEENT: Denies throat pain RESPIRATORY: Denies dyspnea, cough, wheezing CARDIOVASCULAR: Denies chest pain, palpitations : See HPI GASTROINTESTINAL: Denies nausea, vomiting MUSCULOSKELETAL: Denies extremity pain, injury SKIN: No rash, no laceration, no pruritus NEUROLOGIC: Denies weakness, dizziness, headache, numbness 8 point review of systems is negative except for those stated above and HPI [facility] Medical History Sebaceous cyst (Chronic) Excessive daytime sleepiness (Chronic) Low back pain (Chronic) Weak urine stream (Chronic) Difficulty passing stool (Chronic) Fatigue (Chronic) Difficulty with speech (Chronic) Constipation (Inactive) Surgical History S/P inguinal hernia repair (Chronic) Social History Smoking Status: Never smoker Exam Initial Vital Signs Initial Vital Signs: Vital Signs Temperature 98.6 F 04/25/18 05:09 Pulse Rate 102 H 04/25/18 05:09 Respiratory Rate 16 04/25/18 05:09 Blood Pressure 174/101 H 04/25/18 05:09 Pulse Oximetry 100 04/25/18 05:09 GENERAL: Well-appearing, well-nourished and in no acute distress. HEENT: Head atraumatic,EOMI, pupils reactive, neck is supple CARDIOVASCULAR: Regular rate and rhythm without murmurs, rubs or gallops. RESPIRATORY: Breath sounds equal bilaterally, no wheezes rales or rhonchi. ABDOMEN: Soft, nontender. Normoactive bowel sounds all 4 quadrants. No guarding or rebound. : Duran catheter in placed no CVA tenderness or suprapubic pain EXTREMITIES: Normal range of motion, no clubbing or edema. Neurovascularly intact NEUROLOGICAL: Alert and oriented x4.Normal gait and speech. SKIN: Warm, dry, no laceration, no petechiae, no rashes or lesions. Course Orders Ordered: ED Orders 04/25/18 05:20 Urinalysis and Microscopic Stat Urine Culture Stat Discontinued Medications Trimethoprim/Sulfamethoxazole (Bactrim Ds Prepack) 1 bottle [facility] ONE Stop: 04/25/18 05:56 Last Admin: 04/25/18 06:01 Dose: 1 bottle Vital Signs - 8 hr 04/25/18 05:09 04/25/18 06:08 Temperature 98.6 F Pulse Rate 102 H 88 Respiratory Rate 16 18 Blood Pressure 174/101 H 146/76 H Pulse Oximetry 100 98 MDM - Male Genitourinary Lab Data Attestation: I reviewed the patient's lab results. Lab Results 04/25/18 Range/Units 05:20 Urine Color Straw Urine Appearance Clear Urine pH 7.0 (4.5-8.0) Ur Specific [place] <=1.005 (1.000-1.035) Urine Protein Negative (Negative) Urine Glucose (UA) Negative (Normal) g/dL Urine Ketones Negative (NEGATIVE) Urine Occult Blood 2+ H (Negative) Urine Nitrate Negative (Negative) Urine Bilirubin Negative (NEGATIVE) Urine Urobilinogen 0.2 (0.2) E.U./dL Ur Leukocyte Esterase 2+ H (NEGATIVE) Urine RBC None seen (0-5/HPF) Urine WBC 5-10/hpf H (0-5/HPF) Urine Bacteria Few (2-10) H (None) Ur Culture Indicated? Specimen cultured MDM Narrative Medical decision making narrative: Patient is due for cystoscopy this week I Will put him on antibiotics. It is possibly is a colonized infection. Discharge Plan Departure Patient Disposition: Home, Self-Care Clinical Impression: UTI (urinary tract infection) Interventions: ED Discharge Assessment Last Done: 04/25/18 06:08 Instructions: DI for Urinary Tract Infection (UTI) Activity Restrictions/Additional Instructions: *You have been diagnosed with UTI *Continue to take medications as directed Bactrim 1 pill twice a day for 7 days- faxed to [facility] in [place] *Follow up with your primary care provider in 2-3 days *follow up with Urology this week as scheduled *Return to ER if you should have fever, abdominal pain or any new, worsening or concerning symptoms Prescriptions: New sulfamethoxazole-trimethoprim [Bactrim DS] 800-160 mg tablet 1 tab PO BID 7 Days Qty: 14 RF: 0 No Action tamsulosin 0.4 mg capsule,extended release 24hr 0.4 mg PO DAILY Qty: 30 RF: 2 docusate sodium 100 mg capsule 100 mg PO BID Qty: 60 RF: 1 hydrocodone-acetaminophen 5-325 mg tablet 1 tab PO Q6H PRN (Reason: pain) Qty: 20 RF: 0 multivitamin capsule 1 cap PO DAILY Qty: 30 RF: 0 glucosamine sulfate [Glucosamine] 500 mg tablet 1,000 mg PO BID Qty: 30 RF: 0 diazepam 5 mg tablet 5 mg PO BEDTIME PRN (Reason: sleep) Qty: 30 RF: 0 magnesium citrate solution 296 ml PO .one time Qty: 296 RF: 0 polyethylene glycol 3350 [Miralax] 17 gram/dose powder 17 gram PO DAILY Qty: 238 RF: 0
[2018-04-25] MEDS: SULFA/TRIMETH 800/160 PREPACK 1 BOTTLE MISC (06:01)
[2018-04-25 06:08] VITALS: BP 146/76; PULSE 88; RESP 18; O2SAT 98
== END 2018-04-25 06:19 | disposition home or self-care (01) ==
PROVIDERS: Emergency Provider Emergency Medicine; PCP Family Medicine
DX: N39.0 Urinary tract infection, site not specified (principal)
CPT/HCPCS: 51701; 51705; 81001; 87077; 87086; 87186; 99283

== ENCOUNTER 2018-05-09 19:38 | Emergency (ER) | payer OTHER, SELFPAY ==
[2018-05-09 19:58] VITALS: BP 189/86; PULSE 96; RESP 18; TEMP 36.5; O2SAT 98; BMI 25.9
--- NOTE | 2018-05-09 20:31 | PC.NURSE ---
Pt is scheduled for TURP due to prostate problems. Had a catheter removed at 10 am this morning. Has voided 4 times today with last time being at 1730. Since then he has not been able to void and feels like he is retaining urine. 282 mL in bladder, per bladder scan
[2018-05-09 20:59] VITALS: BP 148/80; PULSE 80; RESP 14; O2SAT 97
--- NOTE | 2018-05-09 21:40 | ED.MALEGU ---
HPI - Male Genitourinary General Chief complaint: Urogenital-Male Stated complaint: STATES HE NEEDS A CAPITATOR PUT IN Time Seen by Provider: 05/09/18 20:09 Source: patient Mode of arrival: ambulatory Limitations: no limitations History of Present Illness HPI Narrative: Patient states he has a history of urinary retention, and just had his catheter removed earlier today. Patient states he is again unable to urinate. He would like the catheter replaced. Patient does have a urologist that he is following with. MD Complaint: other (Urinary retention) Onset (ago): hour(s) (Last urination was about 8 hr ago.) Duration: constant (No pain) Relieving factors: urination Exacerbating factors: none indwelling catheter Reports denies other symptoms Related Data Previous Rx's Medication Instructions Recorded glucosamine sulfate 500 mg tablet 1,000 mg PO BID #30 tab 02/13/18 multivitamin capsule 1 cap PO DAILY #30 cap 02/13/18 magnesium citrate 296 ml PO .one time #296 ml 03/11/18 polyethylene glycol 3350 [Miralax] 17 gram PO DAILY #238 gram 03/11/18 docusate sodium 100 mg capsule 100 mg PO BID #60 cap 03/13/18 hydrocodone 5 mg-acetaminophen 325 1 tab PO Q6H PRN #20 tab 03/13/18 mg tablet tamsulosin 0.4 mg capsule 0.4 mg PO DAILY #30 cap 03/13/18 diazepam 5 mg tablet 5 mg PO BEDTIME PRN #30 tab 05/02/18 Allergies Allergy/AdvReac Type Severity Reaction Status Date / Time No Known Drug Allergies Allergy Verified 05/09/18 20:01 Review of Systems Review of Systems All systems reviewed & are unremarkable except as noted in HPI and below Constitutional Denies chills, Denies fever(s), Denies lethargy and Denies weakness Eyes Denies change in vision, Denies eye discharge, Denies irritation and Denies loss of vision ENT Ears, Nose, Mouth, and Throat: Denies change in voice, Denies neck pain and Denies sore throat Cardiovascular Denies chest pain, Denies irregular heart rhythm, Denies lightheadedness, Denies palpitations, Denies dyspnea, Denies dyspnea on exertion and Denies orthopnea Respiratory Denies cough, Denies dyspnea, Denies dyspnea on exertion and Denies wheezing Gastrointestinal Gastrointestinal: Denies abdominal pain, Denies change in bowel habits, Denies diarrhea, Denies nausea and Denies vomiting Genitourinary Denies hematuria, Denies flank pain, Denies urinary incontinence and Denies urinary urgency Musculoskeletal Denies neck pain Integumentary/Breasts Denies pruritus, Denies erythema, Denies rash and Denies wounds Neurologic Denies confusion, Denies loss of vision and Denies weakness Psychiatric Denies anxiety, Denies confusion, Denies depression, Denies homicidal ideation and Denies suicidal ideation Endocrine Denies palpitations Hematologic/Lymphatic Denies easy bruising Allergic/Immunologic Denies wheezing [facility] Medical History Sebaceous cyst (Chronic) Excessive daytime sleepiness (Chronic) Low back pain (Chronic) Weak urine stream (Chronic) Difficulty passing stool (Chronic) Fatigue (Chronic) Difficulty with speech (Chronic) Constipation (Inactive) Surgical History S/P inguinal hernia repair (Chronic) Family History Sister Hypothyroidism Father No problems noted. Mother No problems noted. Social History Smoking Status: Never smoker Exam Initial Vital Signs Initial Vital Signs: Vital Signs Temperature 97.7 F 05/09/18 19:58 Pulse Rate 96 H 05/09/18 19:58 Respiratory Rate 18 05/09/18 19:58 Blood Pressure 189/86 H 05/09/18 19:58 Pulse Oximetry 98 05/09/18 19:58 Const General: cooperative and well developed Nutritional Appearance: well nourished Orientation: alert, awake, oriented x3 and not confused [facility] Head: normal to inspection Ears: hearing grossly normal bilaterally Nose: external nose normal Face and sinus: normal facial exam Mouth: oral mucosae normal Eyes General: appearance normal, both eyes and all related structures Eyelids: eyelids normal Conjunctivae: conjunctivae normal Pupils: PERRL EOM: EOM intact bilaterally Neck Neck: normal visual inspection Resp Effort & Inspection: normal respiratory effort Auscultation: clear to auscultation bilaterally Cardio Rate: regular rate Rhythm: regular rhythm Pulses: normal peripheral pulses GI Inspection: normal to inspection Palpation: soft and No tender Back/Spine/Pelvis Back: normal to inspection Cervical Spine: cervical ROM normal Thoracic/Lumbar Spine: thoracic and lumbar spine normal to inspection Skin General: no rashes or lesions noted Neuro General: alert, awake and oriented x3 Cranial Nerves: CN's II-XI intact bilaterally and EOM intact bilaterally Cognition: normal cognition Speech: speech normal Gait: normal gait Motor: muscle tone normal throughout Sensory Exam: no sensory deficits noted Extrem General: normal to inspection Psych Appearance: grossly normal Mental Status: mental status grossly normal Speech and Movement: speech and movement normal Course Hospital Course: Patient remained stable throughout his stay in the emergency department. Given the patient's established history of urinary retention, the catheter was replaced. Patient tolerated this well. Vital Signs - 8 hr 05/09/18 19:58 05/09/18 20:59 Temperature 97.7 F Pulse Rate 96 H 80 Respiratory Rate 18 14 Blood Pressure 189/86 H Blood Pressure [Right Arm] 148/80 H Pulse Oximetry 98 97 [facility] - Male Genitourinary Medical Records Attestation: I reviewed the patient's medical records. [facility] Narrative Medical decision making narrative: Patient did not have any symptoms consistent with a urinary tract infection. Additionally, he had an established history of urinary retention, and I felt that at this point, the most appropriate management of the patient would be to replace his urinary catheter. This was done in the emergency department, and patient tolerated it well. No further intervention or diagnostics were indicated. The usual indications for return were discussed, and patient was deemed stable for discharge home. Discharge Plan Departure Patient Disposition: Home Clinical Impression: Acute urinary retention Discharge Date/Time: 05/09/18 23:28 Interventions: ED Discharge Assessment Last Done: 05/09/18 23:27 Instructions: DI for Urinary Retention in Men Activity Restrictions/Additional Instructions: Please follow up with urology, as planned. Prescriptions: No Action tamsulosin 0.4 mg capsule,extended release 24hr 0.4 mg PO DAILY Qty: 30 RF: 2 docusate sodium 100 mg capsule 100 mg PO BID Qty: 60 RF: 1 hydrocodone-acetaminophen 5-325 mg tablet 1 tab PO Q6H PRN (Reason: pain) Qty: 20 RF: 0 multivitamin capsule 1 cap PO DAILY Qty: 30 RF: 0 glucosamine sulfate [Glucosamine] 500 mg tablet 1,000 mg PO BID Qty: 30 RF: 0 diazepam 5 mg tablet 5 mg PO BEDTIME PRN (Reason: sleep) Qty: 30 RF: 0 magnesium citrate solution 296 ml PO .one time Qty: 296 RF: 0 polyethylene glycol 3350 [Miralax] 17 gram/dose powder 17 gram PO DAILY Qty: 238 RF: 0 Referrals: Paco Magallanes MD [Primary Care Provider] - (as needed)
[2018-05-09 22:37] VITALS: BP 137/79; PULSE 74; RESP 17; O2SAT 97
[2018-05-09 23:25] VITALS: BP 139/90; PULSE 74; RESP 16; O2SAT 98
== END 2018-05-09 23:28 | disposition home or self-care (01) ==
PROVIDERS: Emergency Provider Emergency Medicine; PCP Family Medicine
DX: R33.9 Retention of urine, unspecified (principal)
CPT/HCPCS: 51701; 51798; 99283

== ENCOUNTER 2018-10-08 12:36 | Emergency (ER) | payer OTHER, SELFPAY ==
[2018-10-08 12:36] VITALS: BP 170/83; PULSE 79; RESP 20; TEMP 37; O2SAT 98; BMI 25.5
--- NOTE | 2018-10-08 14:10 | DI.RAD.S_ITS ---
PROCEDURE: XR CHEST 1V INDICATIONS: cough TECHNIQUE: One view of the chest was acquired. COMPARISON: [facility], CR, XR KUB, 03/13/2018, 6:29. [facility], CT, CT ABDOMEN PELVIS W CON, 03/11/2018, 13:20. FINDINGS: Surgical changes and devices: None. Lungs and pleura: Lungs are clear. No pleural effusions or pneumothorax. Mediastinum: Mediastinal contours appear normal. Heart size is normal. Bones and chest wall: No suspicious bony lesions. Overlying soft tissues appear unremarkable. IMPRESSION: No acute cardiopulmonary disease. Dictated by: Diana Beltrán M.D. on 10/08/2018 at 15:21 Approved by: Diana Beltrán M.D. on 10/08/2018 at 15:22
[2018-10-08 14:26] LABS: Bacteria Urine None Seen; RBC Urine None Seen (0-5/HPF); WBC Urine None Seen (0-5/HPF)
[2018-10-08 14:27] VITALS: BP 158/70; PULSE 87; RESP 15; O2SAT 97
[2018-10-08 14:28] LABS: Appearance Urine UA CLEAR; Bilirubin Urine UA NEGATIVE (NEGATIVE); Color Urine UA YELLOW; Glucose Urine UA NEGATIVE (Negative); Ketones Urine UA NEGATIVE (NEGATIVE); Leukocyte Esterase Urine UA NEGATIVE (NEGATIVE); Nitrite Urine UA NEGATIVE (Negative); Occult Blood Urine UA NEGATIVE (Negative); Protein Urine UA NEGATIVE (Negative); Specific Gravity Urine UA 1.015 (1.000-1.035); Urobilinogen Urine UA 0.2 E.U./dL (0.2); pH Urine UA 5.5 (4.5-8.0)
--- NOTE | 2018-10-08 14:35 | ED.MALEGU ---
HPI - Male Genitourinary <EFFIE Motley - Last Filed: 10/08/18 17:01> General Chief complaint: Urogenital-Male Stated complaint: Unable to urinate Time Seen by Provider: 10/08/18 13:50 Source: patient and family Mode of arrival: ambulatory Limitations: no limitations History of Present Illness HPI Narrative: Patient is a 68-year-old male nonsmoker with a history of CJD who presents with a chief complaint of unable to urinate. He had a TURP done in June. He states he last urinated this morning, but then was unable to urinate and started developing abdominal bloating. He denies any dysuria urgency or frequency. states that he has had multiple catheters at home. She also notes that he has had a cough recently that she wants checked out. He denies any fevers nausea vomiting diarrhea or abdominal pain on exam. states that patient has a hard time communicating given his Parkinson's and CJD. She states he has been having bowel movements regularly. Related Data Previous Rx's Medication Instructions Recorded multivitamin capsule 1 cap PO DAILY #30 cap 02/13/18 magnesium citrate 296 ml PO .one time #296 ml 03/11/18 tamsulosin 0.4 mg capsule 0.4 mg PO DAILY #30 cap 03/13/18 diclofenac 1 % topical gel 2 gram TOP QID #100 gram 07/20/18 diazepam 5 mg tablet 5 mg PO BEDTIME PRN #30 tab 08/16/18 Allergies Allergy/AdvReac Type Severity Reaction Status Date / Time tramadol AdvReac Intermediate Hallucinati Verified 07/28/18 13:37 ons Review of Systems <EFFIE Motley - Last Filed: 10/08/18 17:01> Review of Systems GENERAL: Denies chills, fatigue, malaise, fever, sweats. HEENT: Denies sinus pain, ear pain, sore throat, difficulty swallowing, dizziness. RESPIRATORY: Denies dyspnea, cough, wheezing, hemoptysis, sputum. CARDIOVASCULAR: Denies chest pain, palpitations, orthopnea, edema, GASTROINTESTINAL: Denies nausea, vomiting, abdominal pain, diarrhea, constipation, melena. : See HPI MUSCULOSKELETAL: denies weakness, joint pain, or bony pain SKIN: Denies rash, skin lesions, or other NEUROLOGIC: Denies weakness, headache, numbness, change in speech, confusion, seizures, incoordination. PSYCHIATRIC: No concerning psychosocial issues. 12 point review of systems is negative except for those stated above Exam <EFFIE Motley - Last Filed: 10/08/18 17:01> Narrative Exam Narrative: GENERAL: Thin chronically appearing male lying on stretcher HEAD: Atraumatic. Normocephalic. No temporal or scalp tenderness. EYES: Pupils equal round and reactive. Extraocular motions intact. No scleral icterus. No injection or drainage. ENT: Nose without bleeding, purulent drainage or septal hematoma. Throat without erythema, tonsillar hypertrophy or exudate. Uvula midline. Airway patent. NECK: Trachea midline. No JVD or lymphadenopathy. Supple, nontender, no meningeal signs. CARDIOVASCULAR: Regular rate and rhythm without murmurs, gallops, or rubs. RESPIRATORY: Clear to auscultation. Breath sounds equal bilaterally. No wheezes, rales, or rhonchi. No cough on exam. GASTROINTESTINAL: Abdomen soft, non-tender, nondistended. No hepato-splenomegaly, or palpable masses. No guarding. Active bowel sounds all 4 quadrants. Clear yellow urine draining from Duran catheter. EXTREMITIES: No clubbing, cyanosis, or edema. No joint tenderness, effusion, or edema noted. BACK: Nontender without deformity or crepitance. No flank tenderness. NEURO: AOx3. SKIN: No rash or erythema. Initial Vital Signs Initial Vital Signs: Vital Signs Temperature 98.6 F 10/08/18 12:36 Pulse Rate 79 10/08/18 12:36 Respiratory Rate 20 10/08/18 12:36 Blood Pressure 170/83 H 10/08/18 12:36 Pulse Oximetry 98 10/08/18 12:36 <Onel Kaba DO - Last Filed: 10/08/18 17:10> Initial Vital Signs Initial Vital Signs: Vital Signs Temperature 98.6 F 10/08/18 12:36 Pulse Rate 79 10/08/18 12:36 Respiratory Rate 20 10/08/18 12:36 Blood Pressure 170/83 H 10/08/18 12:36 Pulse Oximetry 98 10/08/18 12:36 Course <EFFIE Motley - Last Filed: 10/08/18 17:01> Orders Ordered: ED Orders 10/08/18 14:10 XR chest 1V Stat 10/08/18 14:20 Urinalysis and Microscopic Stat Vital Signs - 8 hr 10/08/18 12:36 10/08/18 14:27 10/08/18 16:02 Temperature 98.6 F Pulse Rate 79 87 76 Respiratory Rate 20 15 15 Blood Pressure 170/83 H Blood Pressure [Right Arm] 158/70 H 155/79 H Pulse Oximetry 98 97 98 10/08/18 16:16 Temperature Pulse Rate 88 Respiratory Rate 16 Blood Pressure 144/95 H Blood Pressure [Right Arm] Pulse Oximetry 97 <Onel Kaba DO - Last Filed: 10/08/18 17:10> Orders Ordered: ED Orders 10/08/18 14:10 XR chest 1V Stat 10/08/18 14:20 Urinalysis and Microscopic Stat Vital Signs - 8 hr 10/08/18 12:36 10/08/18 14:27 10/08/18 16:02 Temperature 98.6 F Pulse Rate 79 87 76 Respiratory Rate 20 15 15 Blood Pressure 170/83 H Blood Pressure [Right Arm] 158/70 H 155/79 H Pulse Oximetry 98 97 98 10/08/18 16:16 Temperature Pulse Rate 88 Respiratory Rate 16 Blood Pressure 144/95 H Blood Pressure [Right Arm] Pulse Oximetry 97 [facility] - Male Genitourinary <EFFIE Motley - Last Filed: 10/08/18 17:01> Lab Data Lab Results 10/08/18 Range/Units 14:20 Urine Color Yellow Urine Appearance Clear Urine pH 5.5 (4.5-8.0) Ur Specific Bas[place] 1.015 (1.000-1.035) Urine Protein Negative (Negative) Urine Glucose (UA) Negative (Negative) g/dL Urine Ketones Negative (NEGATIVE) Urine Occult Blood Negative (Negative) Urine Nitrate Negative (Negative) Urine Bilirubin Negative (NEGATIVE) Urine Urobilinogen 0.2 (0.2) E.U./dL Ur Leukocyte Esterase Negative (NEGATIVE) Urine RBC None seen (0-5/HPF) Urine WBC None seen (0-5/HPF) Urine Bacteria None seen (None) Ur Culture Indicated? Cult not indicated Micro UA Comment Microscopic normal Imaging Data Chest x-ray: Radiologist's impression: [address] [id number] XRay Report Signed Patient: Rodney Peña BMR#: [id number] : 1Acct:[id number] Age/Sex: 68 / MDate of Service: 10/08/18 Loc: ED Accession Number: [id number] Procedure: XR chest 1V Ordering Provider: Cheryl William PROCEDURE: XR CHEST 1V INDICATIONS: cough TECHNIQUE: One view of the chest was acquired. COMPARISON: [facility], CR, XR KUB, 03/13/2018, 6:29. [facility], CT, CT ABDOMEN PELVIS W CON, 03/11/2018, 13:20. FINDINGS: Surgical changes and devices: None. Lungs and pleura: Lungs are clear. No pleural effusions or pneumothorax. Mediastinum: Mediastinal contours appear normal. Heart size is normal. Bones and chest wall: No suspicious bony lesions. Overlying soft tissues appear unremarkable. IMPRESSION: No acute cardiopulmonary disease. Dictated by: Diana Beltrán M.D. on 10/08/2018 at 15:21 Approved by: Diana Beltrán M.D. on 10/08/2018 at 15:22 [facility] Narrative Medical decision making narrative: Patient is a 68-year-old male who presents with his for chief complaint of acute urinary retention. He was obviously uncomfortable per nursing. A Duran was inserted and he had over a L of the urine output. He he was much improved after his bladder was drained. His urine did not have any signs of infection. Given his 's concern about a cough we did obtain a chest x-ray even though no cough was heard during exam. This came back with no pneumonia or acute etiology. His is very comfortable managing a catheter at home as she has done this before. We discussed at length follow-up with urologist as well as his primary care provider. He is hemodynamically stable and afebrile throughout his stay in the emergency department. and patient had no questions or concerns upon discharge. <Onel Kaba DO - Last Filed: 10/08/18 17:10> Lab Data Lab Results 10/08/18 Range/Units 14:20 Urine Color Yellow Urine Appearance Clear Urine pH 5.5 (4.5-8.0) Ur Specific Basile 1.015 (1.000-1.035) Urine Protein Negative (Negative) Urine Glucose (UA) Negative (Negative) g/dL Urine Ketones Negative (NEGATIVE) Urine Occult Blood Negative (Negative) Urine Nitrate Negative (Negative) Urine Bilirubin Negative (NEGATIVE) Urine Urobilinogen 0.2 (0.2) E.U./dL Ur Leukocyte Esterase Negative (NEGATIVE) Urine RBC None seen (0-5/HPF) Urine WBC None seen (0-5/HPF) Urine Bacteria None seen (None) Ur Culture Indicated? Cult not indicated Micro UA Comment Microscopic normal Discharge Plan Departure Patient Disposition: Home Clinical Impression: Acute retention of urine, Cough Discharge Date/Time: 10/08/18 16:20 Interventions: ED Discharge Assessment Last Done: 10/08/18 16:16 Instructions: How to Care for Your Duran Catheter -- Male, DI for Cough -- Adult, DI for Urinary Retention in Men Activity Restrictions/Additional Instructions: Rodney's X-ray came back with no pneumonia and his urine has no infection. We placed a Duran to help drain his urine. Please follow-up with his primary care provider as well as his urologist. Please monitor for fever or any acute concerns. Please bring him back to emergency department if you have any acute concerns. Prescriptions: No Action tamsulosin 0.4 mg capsule,extended release 24hr 0.4 mg PO DAILY Qty: 30 RF: 2 diclofenac sodium [Voltaren] 1 % gel 2 gram TOP QID Qty: 100 RF: 1 multivitamin capsule 1 cap PO DAILY Qty: 30 RF: 0 diazepam 5 mg tablet 5 mg PO BEDTIME PRN (Reason: sleep) Qty: 30 RF: 2 magnesium citrate solution 296 ml PO .one time Qty: 296 RF: 0 Referrals: Wilner Green MD [Primary Care Provider] - <Onel Kaba DO - Last Filed: 10/08/18 17:10> Cosign ED Attending Artemature Attestation: I was available for consultation during this patient's emergency department encounter
[2018-10-08 14:41] LABS: Culture Indicated Urine Cult Not Indicated; Urine Comments Microscopic Normal
[2018-10-08 16:02] VITALS: BP 155/79; PULSE 76; RESP 15; O2SAT 98
[2018-10-08 16:16] VITALS: BP 144/95; PULSE 88; RESP 16; O2SAT 97
== END 2018-10-08 16:20 | disposition home or self-care (01) ==
PROVIDERS: Emergency Provider Nurse Practitioner Family; PCP Student in an Organized Health Care Education/Training Program
DX: R33.9 Retention of urine, unspecified (principal); R05 Cough
CPT/HCPCS: 51701; 51798; 71045; 81001; 99283

== ENCOUNTER 2018-10-28 13:09 | Emergency (ER) | payer MEDICARE, MEDICAID, OTHER, SELFPAY ==
[2018-10-28 13:14] VITALS: BP 148/78; PULSE 72; RESP 16; TEMP 36.3; O2SAT 98; BMI 25.5
[2018-10-28 13:31] LABS: Bacteria Urine None Seen
[2018-10-28 13:33] LABS: Appearance Urine UA CLEAR; Bilirubin Urine UA NEGATIVE (NEGATIVE); Color Urine UA YELLOW; Glucose Urine UA NEGATIVE (Negative); Ketones Urine UA NEGATIVE (NEGATIVE); Leukocyte Esterase Urine UA 2+ (NEGATIVE); Nitrite Urine UA POSITIVE (Negative); Occult Blood Urine UA 3+ (Negative); Protein Urine UA TRACE (Negative); Specific Gravity Urine UA <=1.005 (1.000-1.035); Urobilinogen Urine UA 0.2 E.U./dL (0.2)
[2018-10-28 13:44] LABS: Culture Indicated Urine Specimen Cultured; RBC Urine 5-10/HPF (0-5/HPF); WBC Urine 5-10/HPF (0-5/HPF)
[2018-10-28 16:15] VITALS: BP 164/82; PULSE 90; RESP 16; O2SAT 98
[2018-10-28 17:06] LABS: Add Manual Diff / Slide Review NO; Basophils Absolute Auto 0 /uL (0-100); Basophils Percent Auto 0.7 % (0-2); Eosinophils Absolute Auto 100 /uL (0-450); Eosinophils Percent Auto 1.3 % (2-4); Hematocrit 38.8 % (41-53); Hemoglobin 13.1 g/dL (13.5-17.5); Lymphocytes Absolute Auto 1200 /uL (1100-4500); Lymphocytes Percent Auto 18.6 % (25-40); Mean Corpuscular HGB Conc 33.7 % (30-36); Mean Corpuscular Hemoglobin 30.6 PG (26-34); Mean Corpuscular Volume 90.8 fL (80-100); Monocytes Absolute Auto 400 /uL (0-900); Monocytes Percent Auto 6.2 % (3-14); Neutrophils Absolute Auto 4800 /uL (1500-7000); Neutrophils Percent Auto 73.2 % (50-75); Platelet Count 245 X10^3/uL (150-400); Red Blood Cell Count 4.28 X10^6/uL (4.5-5.9); Red Cell Distribution Width 12.8 % (11.6-14.8); White Blood Cell Count 6.6 X10^3/uL (4.5-11.0)
--- NOTE | 2018-10-28 17:38 | ED_ITS ---
HPI - Male Genitourinary General Chief complaint: Urogenital-Male Stated complaint: blood in urine bag Time Seen by Provider: 10/28/18 15:59 Source: patient Mode of arrival: ambulatory Limitations: no limitations History of Present Illness HPI Narrative: 68-year-old male nonsmoker with history of BPH presents to the emergency department with a chief complaint of painless blood in his urine. He recently had a Duran catheter placed for urinary retention and accidentally tugged on it a bit and noticed a small blood. He is not dizzy nor weak or lightheaded. He denies chest pain or shortness of breath. The blood has since resolved. MD Complaint: other Onset (ago): minute(s) Duration: now resolved Severity: mild Related Data Sexually active: No Previous Rx's Medication Instructions Recorded multivitamin capsule 1 cap PO DAILY #30 cap 02/13/18 magnesium citrate 296 ml PO .one time #296 ml 03/11/18 tamsulosin 0.4 mg capsule 0.4 mg PO DAILY #30 cap 03/13/18 diclofenac 1 % topical gel 2 gram TOP QID #100 gram 07/20/18 diazepam 5 mg tablet 5 mg PO BEDTIME PRN #30 tab 08/16/18 Allergies Allergy/AdvReac Type Severity Reaction Status Date / Time tramadol AdvReac Intermediate Hallucinati Verified 10/28/18 13:14 ons Review of Systems Constitutional Denies chills, Denies fever(s), Denies lethargy and Denies weakness Eyes Denies change in vision, Denies eye discharge, Denies irritation and Denies loss of vision ENT Ears, Nose, Mouth, and Throat: Denies change in voice, Denies neck pain and Denies sore throat Cardiovascular Denies chest pain, Denies irregular heart rhythm, Denies lightheadedness, Denies palpitations, Denies dyspnea, Denies dyspnea on exertion and Denies orthopnea Respiratory Denies cough, Denies dyspnea, Denies dyspnea on exertion and Denies wheezing Gastrointestinal Gastrointestinal: Denies abdominal pain, Denies change in bowel habits, Denies diarrhea, Denies nausea and Denies vomiting Genitourinary Reports hematuria, Denies flank pain, Denies urinary incontinence and Denies urinary urgency Musculoskeletal Denies neck pain Integumentary/Breasts Denies pruritus, Denies erythema, Denies rash and Denies wounds Neurologic Denies confusion, Denies loss of vision and Denies weakness Psychiatric Denies anxiety, Denies confusion, Denies depression, Denies homicidal ideation and Denies suicidal ideation Endocrine Denies palpitations Hematologic/Lymphatic Denies easy bruising Allergic/Immunologic Denies wheezing PFSH Medical History Insomnia (Chronic) BPH (benign prostatic hyperplasia) (Chronic) Sebaceous cyst (Chronic) Excessive daytime sleepiness (Chronic) Low back pain (Chronic) Weak urine stream (Chronic) Difficulty passing stool (Chronic) Fatigue (Chronic) Constipation (Inactive) Surgical History S/P inguinal hernia repair (Chronic) Family History Sister Hypothyroidism Father No problems noted. Mother No problems noted. Social History Smoking Status: Never smoker Family History Sister Hypothyroidism Father No problems noted. Mother No problems noted. Social History Smoking Status: Never smoker Exam Narrative Exam Narrative: GEN: AOx3 and in mild distress EYES: Pupils are equal, round, and reactive to light and accommodation. Extraoccular muscles are intact bilaterally. There is no subconjunctival hemorrhage or exudate. CHEST: Lungs are clear to auscultation bilaterally and free of wheezes, rales, or rhonchi. Heart rate is regular rhythm, there are no murmurs, clicks, rubs, or gallops. There is no chest wall tenderness. ABD: Abdomen is soft and nontender. There is no guarding or rebound. Bowel sounds are normal in all 4 quadrants. There is no mass or organomegaly. EXT: Full painless ROM of all extremities with no loss of sensation or strength. SKIN: Warm, pink, and dry. No erythema or rash : Catheter in place, urine clear grossly Initial Vital Signs Initial Vital Signs: Vital Signs Temperature 97.3 F L 10/28/18 13:14 Pulse Rate 72 10/28/18 13:14 Respiratory Rate 16 10/28/18 13:14 Blood Pressure 148/78 H 10/28/18 13:14 Pulse Oximetry 98 10/28/18 13:14 Course Orders Ordered: ED Orders 10/28/18 13:25 Urinalysis and Microscopic Stat Urine Culture Stat 10/28/18 16:55 CBC [Complete Blood Count AUTO DIFF] Stat Vital Signs - 8 hr 10/28/18 13:14 10/28/18 16:15 Temperature 97.3 F L Pulse Rate 72 90 Respiratory Rate 16 16 Blood Pressure 148/78 H Blood Pressure [Left Arm] 164/82 H Pulse Oximetry 98 98 MDM - Male Genitourinary Lab Data Result diagrams: 10/28/18 16:55 Lab Results 10/28/18 10/28/18 Range/Units 13:25 16:55 WBC 6.6 (4.5-11.0) X10^3/uL RBC 4.28 L (4.5-5.9) X10^6/uL Hgb 13.1 L (13.5-17.5) g/dL Hct 38.8 L (41-53) % MCV 90.8 (80-100) fL MCH 30.6 (26-34) PG MCHC 33.7 (30-36) % RDW 12.8 (11.6-14.8) % Plt Count 245 (150-400) X10^3/uL Neut % (Auto) 73.2 (50-75) % Lymph % (Auto) 18.6 L (25-40) % Leon % (Auto) 6.2 (3-14) % Eos % (Auto) 1.3 L (2-4) % Baso % (Auto) 0.7 (0-2) % Neut # (Auto) 4800 (9955-7904) /uL Lymph # (Auto) 1200 (5453-9563) /uL Leon # (Auto) 400 (0-900) /uL Eos # (Auto) 100 (0-450) /uL Baso # (Auto) 0 (0-100) /uL Urine Color Yellow Urine Appearance Clear Urine pH 7.0 (4.5-8.0) Ur Specific Warren <=1.005 (1.000-1.035) Urine Protein Trace H (Negative) Urine Glucose (UA) Negative (Negative) g/dL Urine Ketones Negative (NEGATIVE) Urine Occult Blood 3+ H (Negative) Urine Nitrate Positive (Negative) Urine Bilirubin Negative (NEGATIVE) Urine Urobilinogen 0.2 (0.2) E.U./dL Ur Leukocyte Esterase 2+ H (NEGATIVE) Urine RBC 5-10/hpf H (0-5/HPF) Urine WBC 5-10/hpf H (0-5/HPF) Urine Bacteria None seen (None) Ur Culture Indicated? Specimen cultured Discharge Plan Departure Patient Disposition: Home Clinical Impression: Benign hematuria Instructions: DI for Hematuria Prescriptions: No Action tamsulosin 0.4 mg capsule,extended release 24hr 0.4 mg PO DAILY Qty: 30 RF: 2 diclofenac sodium [Voltaren] 1 % gel 2 gram TOP QID Qty: 100 RF: 1 multivitamin capsule 1 cap PO DAILY Qty: 30 RF: 0 diazepam 5 mg tablet 5 mg PO BEDTIME PRN (Reason: sleep) Qty: 30 RF: 2 magnesium citrate solution 296 ml PO .one time Qty: 296 RF: 0 Referrals: Wilner Green MD [Primary Care Provider] -
--- NOTE | 2018-10-28 17:49 | PC.NURSE ---
Pt requesting a new large charlton bag and a charlton blackburn. new charlton bag placed on pt's existing charlton. clear yellow urine draining. no bleeding noted.
[2018-10-28 17:51] VITALS: BP 165/89; PULSE 89; RESP 16; O2SAT 99
== END 2018-10-28 17:51 | disposition home or self-care (01) ==
PROVIDERS: Emergency Medicine; Emergency Provider Emergency Medicine; PCP Student in an Organized Health Care Education/Training Program
DX: N02.9 Recurrent and persistent hematuria with unspecified morphologic changes (principal)
CPT/HCPCS: 81001; 85025; 87077; 87086; 87186; 99282; 99283

== ENCOUNTER 2018-11-07 14:04 | Outpatient (RCR) | payer MEDICARE, MEDICAID, OTHER, SELFPAY ==
--- NOTE | 2018-11-08 10:49 | PT.OIE ---
Current Diagnoses Parkinson's disease (11/07/18) Unspecified abnormalities of gait and mobility (11/07/18) Past Medical History (Last Reviewed 10/28/18 @ 17:38 by Connor Moss DO) Insomnia (Chronic) BPH (benign prostatic hyperplasia) (Chronic) Sebaceous cyst (Chronic) Excessive daytime sleepiness (Chronic) Low back pain (Chronic) Weak urine stream (Chronic) Difficulty passing stool (Chronic) Fatigue (Chronic) Constipation (Inactive) Past Surgical History (Last Reviewed 10/28/18 @ 17:38 by Connor Moss DO) S/P inguinal hernia repair (Chronic) Provider Visit Care Team Role Provider Type Wilner Green MD Attending Provider Physician Primary Care Provider Specialty: Internal Medicine Address: [address] [place] [address], [facility] Email: Physical Therapy Initial Evaluation PT-OP-A Visit Information Start: 11/08/18 09:49 Freq: Status: Active Protocol: Document 11/07/18 14:30 [facility] (Rec: 11/08/18 10:47 [facility] [email or web address]) Out-Patient Physical Therapy Visit Information Visit Information Visit Type Initial Evaluation Visit Note 68 year old male evaluated for abnormality of gait and mobility with new diagnosis of parkinsons 6 months ago. The patient is also having a MRI done on 11/09/18 for further work up. Visit Start Time 14:30 Visit Stop Time 15:15 Total Visit Minutes 45 Visit Number 1 Evaluation Information Evaluation Date 11/07/18 PT-OP-B Current Condition Start: 11/08/18 09:49 Freq: Status: Active Protocol: Document 11/07/18 14:30 [facility] (Rec: 11/08/18 10:47 [facility] [email or web address]) Current Condition History of Current Condition Onset Date 6 months ago Current Complaints fear of falling, gait and balance dysfunction with parkinson's History of Current Condition Rodney is a 68 year old male who reports onset of parkinson 's disease 6 months ago. 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 He reports walking is his biggest challange and he feels like he is going to fall with walking. He also feels this way in the shower when he has to close his eyes to wash his hair. He reports he has taken a fall in the shower recently . Other past medical history includes a TURP procedure 06/17/18, he also reports memory loss and hearing difficulty. Future Testing and Treatments Planned Per patient report MRI is scheduled for 11/09/18 at [facility] Treatment Goals Patient/Caregiver Goals to improve safety with walking , work on balance, and prevent falls Current Functional Impairments (Reported) Functional Limitations- Mobility/Gait limited to walking 1/2 mile, fear of falling with walking and with activities such as showering Functional Limitations- Work/School had to stop working due to symptoms PT-OP-D Balance Start: 11/08/18 09:49 Freq: Status: Active Protocol: Document 11/07/18 14:30 [facility] (Rec: 11/08/18 10:47 [facility] [email or web address]) Simon Balance Assessment Evaluation Sitting to Standing Ability Minimal Assist Unsupported Stance Safely- 2 minutes Sitting Unsupported, Feet on Floor Safely- 2 minutes Standing to Sitting Ability Assist, Control w/Hands Transfer Ability Safely, Hand Use Unsupported Stance- Eyes Closed 3 seconds Unsupported Stance- Eyes Open Independent, 1 minute Reaching Forward Standing Safely, 2 inches Pick- Up Object From Floor Independent/Safe Look Behind Shoulder - Standing Supervision w/Turning Turning 360 Degrees Turns Bilateral, < 4 secs Unsupported Stance, Alternating Feet on 2 Steps w/Minimum Assist Stair Unsupported Tandem Stance Balance Lost- Step/Stand Unilateral Leg Stance Unable,assist to not fall Total Score Simon Total Score (out of 56 points) 33 Simon Impairment Rating 40 to 59% Impaired (Score 23- 33) PT-OP-E Functional Tests Start: 11/08/18 10:47 Freq: Status: Active Protocol: Document 11/08/18 10:47 [facility] (Rec: 11/08/18 10:48 [facility] [email or web address]) Functional Tests Dynamic Gait Index (DGI) Score 6 DGI Impairment Rating 60 to <80% Impaired (Score 5-9 ) PT-OP-G Mobility & Gait Start: 11/08/18 09:49 Freq: Status: Active Protocol: Document 11/07/18 14:30 [facility] (Rec: 11/08/18 10:47 [facility] [email or web address]) OP Gait Assessment Gait Gait Assistance Required: Contact Guard Assist Distance (Feet) 200 Gait Deviations General Gait Pattern Flexed Trunk Wide Based Gait Comments Gait Comments Rodney holds the left arm bent by his side, decreased arm swing Stair Climbing Evaluation Evaluation Level of Assist On Stairs Contact Guard Assistance Technique/Endurance Stair Climbing Direction Ascend and Descend Stair Climbing Technique Step Over Step Number of Steps Climbed 4 Comments Stair Climbing Comments needed hand hold but able to ascend and descend with step over step PT-OP-M Strength Start: 11/08/18 09:49 Freq: Status: Active Protocol: Document 11/07/18 14:30 [facility] (Rec: 11/08/18 10:47 [facility] [email or web address]) Hip Strength Hip Manual Muscle Testing Left Flexion (L2) 3+ Fair+ Extension (S1) 3+ Fair+ Abduction 3+ Fair+ Adduction 4 Good External Rotation 3+ Fair+ Internal Rotation 3+ Fair+ Right Flexion (L2) 4 Good Extension (S1) 4 Good Abduction 4 Good Adduction 5 Normal External Rotation 4 Good Internal Rotation 4 Good Ankle/Foot Strength Ankle and Foot Manual Muscle Testing Right Dorsiflexion (L4) 3 Fair Plantarflexion (S1) 3 Fair Comments difficulty performing a calf raise without having to bend his knees Left Dorsiflexion (L4) 3 Fair Plantarflexion (S1) 3 Fair Comments difficulty performing a calf raise without having to bend his knees PT-OP-T Assessment and Plan Start: 11/08/18 09:49 Freq: Status: Active Protocol: Document 11/07/18 14:30 [facility] (Rec: 11/08/18 10:47 [facility] [email or web address]) Physical Therapy Assessment Rehab Potential Rehabilitation Potential Good Evaluation Complexity Number of Personal Factors/Comorbidities 0 Number of Body Systems Impaired 1-2 Clinical Presentation at Evaluation Stable Impairments Impairments Balance Coordination Functional Mobility Gait Posture Strength Goals Four Impairment decreased amplitude of the left shoudler with gait and functional activitie Mcfp Goal (LTG) Improve amplitute of the UE with walking and with arm ROM LTG Duration 8 weeks Three Impairment risk of falling with eyes closed in the shower Mcfp Goal (LTG) Rodney is able to shower safely and has improved balance with standing to avoid falls LTG Duration 8 weeks Two Impairment Gait impairments and at risk for falls Retail Marketing Specialist Goal (LTG) Rodney is educated on Gait training and he is walking with improved arm swing and it a decreased risk for falls. LTG Duration 8 weeks One Impairment impaired balance with Simon balance score of 26 Mcfp Goal (LTG) With balance training Rodney is able to improve his Simon balance score to 35 or greater LTG Duration 8 weeks Assessment Summary Assessment Rodney is a 68 year old male who presents to physical therapy with a new onset of Parkinson's disease diagnosed 6 months ago. 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 He reports he has a fear of falling with walking and with showering. He has lost his balance and fallen in the shower recently when he had to shampoo his hair and had closed his eyes. With examination today he had a simon balance test scare of 26/ 56 and dynamic gait index of 6 /24. His left side is weaker in his strength that the right and with gait he is holding his left arm tucked at his side. He did have shoulder ROM that WFL for the left side passively. He loses his balance with eyes closed and we talked today about using a shower bench to avoid falling in the shower. He would benefit from our BIG parkinson 's program here at the clinic and he was placed on the waiting list today to start this program. Treatment at this time will focus on balance and gait training, LE strengthening and education for home to avoid falls. Physical Therapy Plan Frequency and Duration Frequency of Treatment 2x/Week Duration of Treatment 8 weeks Plan of Care Start Date 11/07/18 Plan of Care End Date 01/30/19 Therapeutic Interventions Therapeutic Interventions Balance Training Gait Training Home Exercise Program Patient/Caregiver Education Self-Care/Home Management Therapeutic Activities Therapeutic Exercises
--- NOTE | 2018-11-08 10:49 | PT.OPPOC ---
Current Diagnoses Parkinson's disease (11/07/18) Unspecified abnormalities of gait and mobility (11/07/18) Provider Visit Care Team Role Provider Type Wilner Green MD Attending Provider Physician Primary Care Provider Specialty: Internal Medicine Address: [address] [place] [address], [id number] Email: Plan Of Care PT-OP-T Assessment and Plan Start: 11/08/18 09:49 Freq: Status: Active Protocol: Document 11/07/18 14:30 [facility] (Rec: 11/08/18 10:47 [facility] [email or web address]) Physical Therapy Assessment Rehab Potential Rehabilitation Potential Good Evaluation Complexity Number of Personal Factors/Comorbidities 0 Number of Body Systems Impaired 1-2 Clinical Presentation at Evaluation Stable Impairments Impairments Balance Coordination Functional Mobility Gait Posture Strength Goals Four Impairment decreased amplitude of the left shoudler with gait and functional activitie Supervisor Dog License Officer Goal (LTG) Improve amplitute of the UE with walking and with arm ROM LTG Duration 8 weeks Three Impairment risk of falling with eyes closed in the shower Supervisor Dog License Officer Goal (LTG) Rodney is able to shower safely and has improved balance with standing to avoid falls LTG Duration 8 weeks Two Impairment Gait impairments and at risk for falls Supervisor Dog License Officer Goal (LTG) Rodney is educated on Gait training and he is walking with improved arm swing and it a decreased risk for falls. LTG Duration 8 weeks One Impairment impaired balance with Simon balance score of 26 Half-Way Goal (LTG) With balance training Rodney is able to improve his Simon balance score to 35 or greater LTG Duration 8 weeks Assessment Summary Assessment Rodney is a 68 year old male who presents to physical therapy with a new onset of Parkinson's disease diagnosed 6 months ago. 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 He reports he has a fear of falling with walking and with showering. He has lost his balance and fallen in the shower recently when he had to shampoo his hair and had closed his eyes. With examination today he had a simon balance test scare of 26/ 56 and dynamic gait index of 6 /24. His left side is weaker in his strength that the right and with gait he is holding his left arm tucked at his side. He did have shoulder ROM that WFL for the left side passively. He loses his balance with eyes closed and we talked today about using a shower bench to avoid falling in the shower. He would benefit from our BIG parkinson 's program here at the clinic and he was placed on the waiting list today to start this program. Treatment at this time will focus on balance and gait training, LE strengthening and education for home to avoid falls. Physical Therapy Plan Frequency and Duration Frequency of Treatment 2x/Week Duration of Treatment 8 weeks Plan of Care Start Date 11/07/18 Plan of Care End Date 01/30/19 Therapeutic Interventions Therapeutic Interventions Balance Training Gait Training Home Exercise Program Patient/Caregiver Education Self-Care/Home Management Therapeutic Activities Therapeutic Exercises Plan of Care Dates Plan of Care Start Date 11/07/18 Plan of Care End Date 01/30/19 Please Sign and Return: I have reviewed this Plan of Care and certify that the skilled therapy services above are required to meet the patient?s needs. Physician Signature Date Printed Name and Credentials Clinical Instructor Signature Printed Name and Credentials
--- NOTE | 2018-11-14 11:58 | PT.OTN ---
Current Diagnoses Parkinson's disease (11/07/18) Unspecified abnormalities of gait and mobility (11/07/18) Physical Therapy Treatment Note PT-OP-A Visit Information Start: 11/08/18 09:49 Freq: Status: Active Protocol: Document 11/07/18 14:30 [facility] (Rec: 11/08/18 10:47 [facility] [email or web address]) Out-Patient Physical Therapy Visit Information Visit Information Visit Type Initial Evaluation Visit Note 68 year old male evaluated for abnormality of gait and mobility with new diagnosis of parkinsons 6 months ago. The patient is also having a MRI done on 11/09/18 for further work up. Visit Start Time 14:30 Visit Stop Time 15:15 Total Visit Minutes 45 Visit Number 1 Evaluation Information Evaluation Date 11/07/18 PT-OP-B Current Condition Start: 11/08/18 09:49 Freq: Status: Active Protocol: Document 11/07/18 14:30 [facility] (Rec: 11/08/18 10:47 [facility] [email or web address]) Current Condition History of Current Condition Onset Date 6 months ago Current Complaints fear of falling, gait and balance dysfunction with parkinson's History of Current Condition Rodney is a 68 year old male who reports onset of parkinson 's disease 6 months ago. 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 He reports walking is his biggest challange and he feels like he is going to fall with walking. He also feels this way in the shower when he has to close his eyes to wash his hair. He reports he has taken a fall in the shower recently . Other past medical history includes a TURP procedure 06/17/18, he also reports memory loss and hearing difficulty. Future Testing and Treatments Planned Per patient report MRI is scheduled for 11/09/18 at [facility] Treatment Goals Patient/Caregiver Goals to improve safety with walking , work on balance, and prevent falls Current Functional Impairments (Reported) Functional Limitations- Mobility/Gait limited to walking 1/2 mile, fear of falling with walking and with activities such as showering Functional Limitations- Work/School had to stop working due to symptoms PT-OP-D Balance Start: 11/08/18 09:49 Freq: Status: Active Protocol: Document 11/07/18 14:30 [facility] (Rec: 11/08/18 10:47 [facility] [email or web address]) Simon Balance Assessment Evaluation Sitting to Standing Ability Minimal Assist Unsupported Stance Safely- 2 minutes Sitting Unsupported, Feet on Floor Safely- 2 minutes Standing to Sitting Ability Assist, Control w/Hands Transfer Ability Safely, Hand Use Unsupported Stance- Eyes Closed 3 seconds Unsupported Stance- Eyes Open Independent, 1 minute Reaching Forward Standing Safely, 2 inches Pick- Up Object From Floor Independent/Safe Look Behind Shoulder - Standing Supervision w/Turning Turning 360 Degrees Turns Bilateral, < 4 secs Unsupported Stance, Alternating Feet on 2 Steps w/Minimum Assist Stair Unsupported Tandem Stance Balance Lost- Step/Stand Unilateral Leg Stance Unable,assist to not fall Total Score Simon Total Score (out of 56 points) 33 Simon Impairment Rating 40 to 59% Impaired (Score 23- 33) PT-OP-E Functional Tests Start: 11/08/18 10:47 Freq: Status: Active Protocol: Document 11/08/18 10:47 [facility] (Rec: 11/08/18 10:48 [facility] [email or web address]) Functional Tests Dynamic Gait Index (DGI) Score 6 DGI Impairment Rating 60 to <80% Impaired (Score 5-9 ) PT-OP-G Mobility & Gait Start: 11/08/18 09:49 Freq: Status: Active Protocol: Document 11/07/18 14:30 [facility] (Rec: 11/08/18 10:47 [facility] [email or web address]) OP Gait Assessment Gait Gait Assistance Required: Contact Guard Assist Distance (Feet) 200 Gait Deviations General Gait Pattern Flexed Trunk Wide Based Gait Comments Gait Comments Rodney holds the left arm bent by his side, decreased arm swing Stair Climbing Evaluation Evaluation Level of Assist On Stairs Contact Guard Assistance Technique/Endurance Stair Climbing Direction Ascend and Descend Stair Climbing Technique Step Over Step Number of Steps Climbed 4 Comments Stair Climbing Comments needed hand hold but able to ascend and descend with step over step PT-OP-M Strength Start: 11/08/18 09:49 Freq: Status: Active Protocol: Document 11/07/18 14:30 [facility] (Rec: 11/08/18 10:47 [facility] [email or web address]) Hip Strength Hip Manual Muscle Testing Left Flexion (L2) 3+ Fair+ Extension (S1) 3+ Fair+ Abduction 3+ Fair+ Adduction 4 Good External Rotation 3+ Fair+ Internal Rotation 3+ Fair+ Right Flexion (L2) 4 Good Extension (S1) 4 Good Abduction 4 Good Adduction 5 Normal External Rotation 4 Good Internal Rotation 4 Good Ankle/Foot Strength Ankle and Foot Manual Muscle Testing Right Dorsiflexion (L4) 3 Fair Plantarflexion (S1) 3 Fair Comments difficulty performing a calf raise without having to bend his knees Left Dorsiflexion (L4) 3 Fair Plantarflexion (S1) 3 Fair Comments difficulty performing a calf raise without having to bend his knees PT-OP-Q Treatments Start: 11/08/18 09:49 Freq: Status: Active Protocol: Document 11/07/18 14:30 [facility] (Rec: 11/14/18 11:58 [facility] [email or web address]) Therapeutic Exercises Standing Exercises 3 Standing Exercise Name standing bilateral abduction of UE Side bilateral Reps/Minutes x 10 Comments verbal cues to move the left arm up fully 2 Standing Exercise Name standing calf raises with hand hold Side bilateral Reps/Minutes x 20 1 Standing Exercise Name standing marching with hand hold on parallel bars Side bilateral Reps/Minutes 2 x 10 reps PT-OP-T Assessment and Plan Start: 11/08/18 09:49 Freq: Status: Active Protocol: Document 11/07/18 14:30 [facility] (Rec: 11/08/18 10:47 [facility] [email or web address]) Physical Therapy Assessment Rehab Potential Rehabilitation Potential Good Evaluation Complexity Number of Personal Factors/Comorbidities 0 Number of Body Systems Impaired 1-2 Clinical Presentation at Evaluation Stable Impairments Impairments Balance Coordination Functional Mobility Gait Posture Strength Goals Four Impairment decreased amplitude of the left shoudler with gait and functional activitie Senior Care Goal (LTG) Improve amplitute of the UE with walking and with arm ROM LTG Duration 8 weeks Three Impairment risk of falling with eyes closed in the shower Senior Care Goal (LTG) Rodney is able to shower safely and has improved balance with standing to avoid falls LTG Duration 8 weeks Two Impairment Gait impairments and at risk for falls Senior Care Goal (LTG) Rodney is educated on Gait training and he is walking with improved arm swing and it a decreased risk for falls. LTG Duration 8 weeks One Impairment impaired balance with Simon balance score of 26 [employer]'S Labou[employer] Goal (LTG) With balance training Rodney is able to improve his Simon balance score to 35 or greater LTG Duration 8 weeks Assessment Summary Assessment Rodney is a 68 year old male who presents to physical therapy with a new onset of Parkinson's disease diagnosed 6 months ago. 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 He reports he has a fear of falling with walking and with showering. He has lost his balance and fallen in the shower recently when he had to shampoo his hair and had closed his eyes. With examination today he had a simon balance test scare of 26/ 56 and dynamic gait index of 6 /24. His left side is weaker in his strength that the right and with gait he is holding his left arm tucked at his side. He did have shoulder ROM that WFL for the left side passively. He loses his balance with eyes closed and we talked today about using a shower bench to avoid falling in the shower. He would benefit from our BIG parkinson 's program here at the clinic and he was placed on the waiting list today to start this program. Treatment at this time will focus on balance and gait training, LE strengthening and education for home to avoid falls. Physical Therapy Plan Frequency and Duration Frequency of Treatment 2x/Week Duration of Treatment 8 weeks Plan of Care Start Date 11/07/18 Plan of Care End Date 01/30/19 Therapeutic Interventions Therapeutic Interventions Balance Training Gait Training Home Exercise Program Patient/Caregiver Education Self-Care/Home Management Therapeutic Activities Therapeutic Exercises
--- NOTE | 2019-07-23 11:58 | PT.OPDS ---
Current Diagnoses Parkinson's disease (11/07/18) Unspecified abnormalities of gait and mobility (11/07/18) Visit Care Team Role Provider Type Wilner Green MD Attending Provider Physician Primary Care Provider Specialty: Internal Medicine Address: [address] [place] [address], [address], [id number] Email: [email or web address] Visit Number Visit Number 1 Discharge Summary PT-OP-B Current Condition Start: 11/08/18 09:49 Freq: Status: Active Protocol: Document 11/07/18 14:30 [facility] (Rec: 11/08/18 10:47 [facility] [email or web address]) Current Condition History of Current Condition Onset Date 6 months ago Current Complaints fear of falling, gait and balance dysfunction with parkinson's History of Current Condition Rodney is a 68 year old male who reports onset of parkinson 's disease 6 months ago. 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 He reports walking is his biggest challange and he feels like he is going to fall with walking. He also feels this way in the shower when he has to close his eyes to wash his hair. He reports he has taken a fall in the shower recently . Other past medical history includes a TURP procedure 06/17/18, he also reports memory loss and hearing difficulty. Future Testing and Treatments Planned Per patient report MRI is scheduled for 11/09/18 at [facility] Treatment Goals Patient/Caregiver Goals to improve safety with walking , work on balance, and prevent falls Current Functional Impairments (Reported) Functional Limitations- Mobility/Gait limited to walking 1/2 mile, fear of falling with walking and with activities such as showering Functional Limitations- Work/School had to stop working due to symptoms PT-OP-D Balance Start: 11/08/18 09:49 Freq: Status: Active Protocol: Document 11/07/18 14:30 [facility] (Rec: 11/08/18 10:47 [facility] [email or web address]) Osman Balance Assessment Evaluation Sitting to Standing Ability Minimal Assist Unsupported Stance Safely- 2 minutes Sitting Unsupported, Feet on Floor Safely- 2 minutes Standing to Sitting Ability Assist, Control w/Hands Transfer Ability Safely, Hand Use Unsupported Stance- Eyes Closed 3 seconds Unsupported Stance- Eyes Open Independent, 1 minute Reaching Forward Standing Safely, 2 inches Pick- Up Object From Floor Independent/Safe Look Behind Shoulder - Standing Supervision w/Turning Turning 360 Degrees Turns Bilateral, < 4 secs Unsupported Stance, Alternating Feet on 2 Steps w/Minimum Assist Stair Unsupported Tandem Stance Balance Lost- Step/Stand Unilateral Leg Stance Unable,assist to not fall Total Score Osman Total Score (out of 56 points) 33 Osman Impairment Rating 40 to 59% Impaired (Score 23- 33) PT-OP-E Functional Tests Start: 11/08/18 10:47 Freq: Status: Active Protocol: Document 11/08/18 10:47 [facility] (Rec: 11/08/18 10:48 [facility] [email or web address]) Functional Tests Dynamic Gait Index (DGI) Score 6 DGI Impairment Rating 60 to <80% Impaired (Score 5-9 ) PT-OP-G Mobility & Gait Start: 11/08/18 09:49 Freq: Status: Active Protocol: Document 11/07/18 14:30 [facility] (Rec: 11/08/18 10:47 [facility] [email or web address]) OP Gait Assessment Gait Gait Assistance Required: Contact Guard Assist Distance (Feet) 200 Gait Deviations General Gait Pattern Flexed Trunk,Wide Based Gait Comments Gait Comments Rodney holds the left arm bent by his side, decreased arm swing Stair Climbing Evaluation Evaluation Level of Assist On Stairs Contact Guard Assistance Technique/Endurance Stair Climbing Direction Ascend and Descend Stair Climbing Technique Step Over Step Number of Steps Climbed 4 Comments Stair Climbing Comments needed hand hold but able to ascend and descend with step over step PT-OP-M Strength Start: 11/08/18 09:49 Freq: Status: Active Protocol: Document 11/07/18 14:30 [facility] (Rec: 11/08/18 10:47 [facility] [email or web address]) Hip Strength Hip Manual Muscle Testing Left Flexion (L2) 3+ Fair+ Extension (S1) 3+ Fair+ Abduction 3+ Fair+ Adduction 4 Good External Rotation 3+ Fair+ Internal Rotation 3+ Fair+ Right Flexion (L2) 4 Good Extension (S1) 4 Good Abduction 4 Good Adduction 5 Normal External Rotation 4 Good Internal Rotation 4 Good Ankle/Foot Strength Ankle and Foot Manual Muscle Testing Right Dorsiflexion (L4) 3 Fair Plantarflexion (S1) 3 Fair Comments difficulty performing a calf raise without having to bend his knees Left Dorsiflexion (L4) 3 Fair Plantarflexion (S1) 3 Fair Comments difficulty performing a calf raise without having to bend his knees PT-OP-T Assessment and Plan Start: 11/08/18 09:49 Freq: Status: Active Protocol: Document 07/23/19 11:57 [facility] (Rec: 07/23/19 11:58 [facility] [email or web address]) Physical Therapy Plan Discharge Physical Therapy Discharge Comments the patient was seen for his initial evaluation only. He will be discharged from PT at this time
== END 2019-07-27 11:32 ==
LOC: PHYS 14:04
PROVIDERS: PCP Student in an Organized Health Care Education/Training Program; Visit Provider Student in an Organized Health Care Education/Training Program
DX: G20 Parkinson's disease (principal); R26.9 Unspecified abnormalities of gait and mobility
CPT/HCPCS: 97110; 97161

== ENCOUNTER → 2018-11-08 10:55 | Outpatient (CLI) | payer MEDICARE, OTHER, MEDICAID, SELFPAY ==
--- NOTE | 2018-11-08 | DI.MRI.S_ITS ---
PROCEDURE: MR HEAD/BRAIN WO/W CON INDICATIONS: Parkinson's disease TECHNIQUE: Noncontrast axial T1 spin echo, axial T2 fast spin echo, sagittal and axial FLAIR, coronal T2 fast spin echo, axial gradient echo, axial diffusion and ADC through the brain. After the administration of contrast, axial and coronal 3D VIBE or T1 spin echo with fat saturation through the brain. COMPARISON: [facility], CT, CT HEAD/BRAIN WO CON, 02/17/2018, 8:04. FINDINGS: Image quality: Limited by patient motion artifact and poor [id number] related to use a body coil for imaging acquisition. Body coil was utilized secondary to severe thoracic spine kyphosis which precluded use of the head coil for image acquisition. CSF Spaces: Basal cisterns are patent. No extra-axial fluid collections. Ventricles are normal in size and shape. Brain: No midline shift. No intracranial bleeds or masses. No abnormal intracranial enhancement. The brainstem appears normal. Diffusion-weighted images demonstrate no acute ischemic insults. No areas of encephalomalacia. Mild, diffuse cerebral volume loss. Minimal subcortical white matter chronic microvascular ischemic changes. No GRE weighted abnormalities identified in the brain parenchyma. Normal intravascular flow voids are present. Normal postcontrast enhancement of the dural sinuses noted. Skull and face: Calvarial marrow is normal in signal. Orbits appear normal. Sinuses: Sinuses and mastoids appear clear. IMPRESSION: 1. Image quality limited by patient motion artifact and poor [id number]. 2. No acute intracranial disease process. 3. No abnormal intracranial mass or suspicious postcontrast enhancement. 4. Mild, diffuse cerebral volume loss. 6. Minimal subcortical white matter chronic microvascular ischemic changes. Dictated by: Christine Mcelroy MD, PhD on 11/08/2018 at 17:12 Approved by: Christine Mcelroy MD, PhD on 11/08/2018 at 17:16
== END ==
PROVIDERS: PCP Student in an Organized Health Care Education/Training Program; Visit Provider Psychiatry & Neurology Neurology
DX: G20 Parkinson's disease (principal)
CPT/HCPCS: 70553

== ENCOUNTER 2018-11-28 19:15 | Emergency (ER) | payer MEDICARE, MEDICAID, OTHER, SELFPAY ==
[2018-11-28 19:24] VITALS: BP 187/78; PULSE 67; RESP 26; TEMP 36.9; O2SAT 97; BMI 25.1
--- NOTE | 2018-11-28 19:30 | ED_ITS ---
HPI - General Adult General Chief complaint: Urogenital-Male Stated complaint: UNABLE TO PEE Time Seen by Provider: 11/28/18 19:21 Source: patient Mode of arrival: ambulatory Limitations: no limitations History of Present Illness HPI narrative: 68-year-old male with a history of Parkinson's disease here for evaluation of urinary retention. He is somewhat difficult to obtain a history out of. It appears that he has had urinary retention in the past. Right before discharge he stated that his last episode of this was 3 weeks ago where he had a Duran in place for a week. He does have a urologist that he sees. He states that today his last urination was 2 hr prior to arrival here in the ER. He told the nursing staff that his last urination was 4 hr. He told nursing staff that he was having abdominal pain and the sensation to urinate however when I talked him he stated that he was not having any belly pain and no desire to urinate. Related Data Previous Rx's Medication Instructions Recorded multivitamin capsule 1 cap PO DAILY #30 cap 02/13/18 magnesium citrate 296 ml PO .one time #296 ml 03/11/18 tamsulosin 0.4 mg capsule 0.4 mg PO DAILY #30 cap 03/13/18 diclofenac 1 % topical gel 2 gram TOP QID #100 gram 07/20/18 diazepam 10 mg tablet 10 mg PO BEDTIME PRN #30 tab 11/27/18 Allergies Allergy/AdvReac Type Severity Reaction Status Date / Time tramadol AdvReac Intermediate Hallucinati Verified 11/14/18 14:53 ons Review of Systems Constitutional Denies fever(s) Cardiovascular Denies chest pain and Denies dyspnea Respiratory Denies dyspnea Gastrointestinal Gastrointestinal: Denies abdominal pain, Denies diarrhea, Denies nausea and Denies vomiting Genitourinary Comments: Urinary retention Integumentary/Breasts Denies lesions and Denies rash Hematologic/Lymphatic Denies easy bleeding and Denies easy bruising [facility] Social History Smoking Status: Never smoker alcohol intake: current substance use type: does not use Exam Initial Vital Signs Initial Vital Signs: Vital Signs Temperature 98.4 F 11/28/18 19:24 Pulse Rate 67 11/28/18 19:24 Respiratory Rate 26 H 11/28/18 19:24 Blood Pressure 187/78 H 11/28/18 19:24 Pulse Oximetry 97 11/28/18 19:24 Const General: cooperative, comfortable, well developed, well groomed and No acute distress Orientation: alert and awake Resp Effort & Inspection: normal respiratory effort Cardio Rate: regular rate GI Inspection: non-distended Palpation: soft, No firm and No tender Skin Lesions: no lesions Rashes: no rashes Neuro General: alert and awake Extrem General: normal to inspection and capillary refill normal Course Vital Signs - 8 hr 11/28/18 19:24 11/28/18 21:05 Temperature 98.4 F Pulse Rate 67 91 H Respiratory Rate 26 H 20 Blood Pressure 187/78 H Blood Pressure [Left Arm] 143/80 H Pulse Oximetry 97 96 Medical Decision Making Lab Data Urine Dip Bedside Urine Glucose Negative Bedside Urine Bilirubin - Negative Bedside Urine Ketone - Negative Urine Specific [place] 1.015 Bedside Urine Occult Blood - Negative Bedside Urine pH 6.0 Bedside Urine Protein - Negative Bedside Urine Urobilinogen - Negative Bedside Urine Nitrite - Negative Bedside Urine Leukocytes - Negative Esterase Point of care testing: Urine Dip Bedside Urine Glucose Negative Bedside Urine Bilirubin - Negative Bedside Urine Ketone - Negative Urine Specific [place] 1.015 Bedside Urine Occult Blood - Negative Bedside Urine pH 6.0 Bedside Urine Protein - Negative Bedside Urine Urobilinogen - Negative Bedside Urine Nitrite - Negative Bedside Urine Leukocytes - Negative Esterase MDM Narrative Medical decision making narrative: Patient stated that he would rather not have a catheter placed. He wanted to try to urinate 1 further time however was unab le to. Bladder scan shows greater than 400 cc of urine in his bladder. He did allow us to place a Duran and 1200 cc of urine returned. Informed him that we should keep the catheter in. Will have him contact his urologist tomorrow for follow-up. Patient was given return precautions. He expressed understanding and agreement with plan. Discharge Plan Departure Patient Disposition: Home Clinical Impression: Acute urinary retention Discharge Date/Time: 11/28/18 21:46 Interventions: ED Discharge Assessment Last Done: 11/28/18 21:45 Instructions: How to Care for Your Duran Catheter -- Male, DI for Urinary Retention in Men Activity Restrictions/Additional Instructions: Tomorrow have your call your urologist to let them know that you had another episode of urinary retention. Continue all of your medications as directed. Return to the emergency department for any new or worsening symptoms Prescriptions: No Action tamsulosin 0.4 mg capsule,extended release 24hr 0.4 mg PO DAILY Qty: 30 RF: 2 diclofenac sodium [Voltaren] 1 % gel 2 gram TOP QID Qty: 100 RF: 1 multivitamin capsule 1 cap PO DAILY Qty: 30 RF: 0 diazepam 10 mg tablet 10 mg PO BEDTIME PRN (Reason: sleep) Qty: 30 RF: 5 magnesium citrate solution 296 ml PO .one time Qty: 296 RF: 0 Referrals: Wilner Green MD [Primary Care Provider] -
[2018-11-28 21:05] VITALS: BP 143/80; PULSE 91; RESP 20; O2SAT 96
== END 2018-11-28 21:46 | disposition home or self-care (01) ==
PROVIDERS: Emergency Provider Emergency Medicine; PCP Student in an Organized Health Care Education/Training Program
DX: R33.8 Other retention of urine (principal)
CPT/HCPCS: 51701; 51798; 81003; 99283

== ENCOUNTER 2019-01-06 10:26 | Emergency (ER) | payer MEDICARE, MEDICAID, OTHER, SELFPAY ==
[2019-01-06 10:36] VITALS: BP 137/87; PULSE 83; RESP 18; TEMP 36.6; O2SAT 98; BMI 24.2
[2019-01-06 11:51] LABS: Add Manual Diff / Slide Review NO; Basophils Absolute Auto 0 /uL (0-100); Basophils Percent Auto 0.9 % (0-2); Eosinophils Absolute Auto 100 /uL (0-450); Eosinophils Percent Auto 1.7 % (2-4); Hematocrit 40.3 % (41-53); Hemoglobin 14.1 g/dL (13.5-17.5); Lymphocytes Absolute Auto 700 /uL (1100-4500); Lymphocytes Percent Auto 20.7 % (25-40); Mean Corpuscular Hemoglobin 30.8 PG (26-34); Monocytes Absolute Auto 400 /uL (0-900); Monocytes Percent Auto 9.8 % (3-14); Neutrophils Absolute Auto 2400 /uL (1500-7000); Neutrophils Percent Auto 66.9 % (50-75); Platelet Count 248 X10^3/uL (150-400); Red Blood Cell Count 4.57 X10^6/uL (4.5-5.9); White Blood Cell Count 3.6 X10^3/uL (4.5-11.0)
[2019-01-06 12:04] LABS: Appearance Urine UA CLOUDY; Color Urine UA YELLOW; Glucose Urine UA NEGATIVE (Negative); Ketones Urine UA 1+ (NEGATIVE); Leukocyte Esterase Urine UA 3+ (NEGATIVE); Nitrite Urine UA POSITIVE (Negative); Occult Blood Urine UA 3+ (Negative); Protein Urine UA 2+ (Negative); Specific Gravity Urine UA 1.025 (1.000-1.035)
[2019-01-06 12:07] LABS: Bilirubin Urine UA 1+ (NEGATIVE)
[2019-01-06 12:08] LABS: Alanine Aminotransferase 16 IU/L (21-72); Albumin 4.3 g/dL (3.5-5.0); Albumin Globulin Ratio 1.4 (1.0-2.8); Alkaline Phosphatase 87 U/L (38-126); Aspartate Aminotransferase 43 IU/L (17-59); BUN Creatinine Ratio 24.3 (6-22); Bilirubin Total 1.6 mg/dL (0.2-1.3); Blood Urea Nitrogen 17 mg/dL (9-20); Calcium 9.5 mg/dL (8.4-10.2); Carbon Dioxide 27 mmol/L (22-32); Chloride 100 mmol/L (98-107); Estimated Glomerular Filt Rate > 60.0 mL/min (>60); Glucose 95 mg/dL (80-110); HEMOLYSIS < 15 (0-50); Potassium 4.1 mmol/L (3.4-5.1); Sodium 137 mmol/L (137-145); Total Protein 7.3 g/dL (6.3-8.2)
[2019-01-06 12:08] LABS: Ictotest Urine Positive (Negative)
[2019-01-06 12:17] LABS: Amorphous Sediment Urine 1+; Bacteria Urine Many (>30); Culture Indicated Urine Specimen Cultured; Mucus Urine 2+ (Negative); RBC Urine 30-100/HPF (0-5/HPF); WBC Urine >100/HPF (0-5/HPF)
--- NOTE | 2019-01-06 12:19 | ED_ITS ---
HPI - Weakness General Chief complaint: Weakness Stated complaint: needs help in pain Time Seen by Provider: 01/06/19 10:49 Source: patient and family Mode of arrival: ambulatory Limitations: no limitations History of Present Illness HPI Narrative: 68-year-old nonsmoker with chronic medical problems including Parkinson's presents with many months if not years of gradual decline including generalized weakness and the nonspecific pain. He denies any recent dizziness or lightheadedness. He has no chest pain or shortness of breath. He has no nausea, vomiting or diarrhea. He denies any dysuria, frequency or urgency. He does admit to a gradual generalized weakness which has been addressed by his primary care providers. He does state that his pain is often not controlled and tends to be nonspecific but largely in his upper and lower back. His current pain regimen includes only Ultram at bedtime. He denies any significant change in his overall status but states was hoping maybe we could help with some of his ongoing pain MD Complaint: generalized weakness Onset (ago): day(s) Duration: constant Location: generalized Migration: none Severity: moderate Quality: tingling Relieving factors: none Exacerbating factors: movement Context: history of similar Associated symptoms: other Related Data Home Medications Medication Instructions Recorded Confirmed carbidopa-levodopa [Sinemet CR] 2 tab PO Q8H 01/06/19 01/06/19 diazepam 5 mg PO BEDTIME PRN 01/06/19 01/06/19 Previous Rx's Medication Instructions Recorded multivitamin capsule 1 cap PO DAILY #30 cap 02/13/18 magnesium citrate 296 ml PO .one time #296 ml 03/11/18 tamsulosin 0.4 mg capsule 0.4 mg PO DAILY #30 cap 03/13/18 diclofenac 1 % topical gel 2 gram TOP QID #100 gram 07/20/18 tramadol 50 mg tablet 100 mg PO BEDTIME #60 tab 12/16/18 cephalexin [Keflex] 500 mg PO BID #14 cap 01/06/19 tramadol [Ultram] 50 mg PO TID PRN #30 tab 01/06/19 Allergies Allergy/AdvReac Type Severity Reaction Status Date / Time tramadol AdvReac Intermediate Hallucinati Verified 01/06/19 10:40 ons Review of Systems Constitutional Denies chills, Denies fever(s), Denies lethargy and Reports weakness Comments: Generalized pain Eyes Denies change in vision, Denies eye discharge, Denies irritation and Denies loss of vision ENT Ears, Nose, Mouth, and Throat: Denies change in voice, Denies neck pain and Denies sore throat Cardiovascular Denies chest pain, Denies irregular heart rhythm, Denies lightheadedness, Denies palpitations, Denies dyspnea, Denies dyspnea on exertion and Denies orthopnea Respiratory Denies cough, Denies dyspnea, Denies dyspnea on exertion and Denies wheezing Gastrointestinal Gastrointestinal: Denies abdominal pain, Denies change in bowel habits, Denies diarrhea, Denies nausea and Denies vomiting Genitourinary Denies hematuria, Denies flank pain, Denies urinary incontinence and Denies urinary urgency Musculoskeletal Denies neck pain Integumentary/Breasts Denies pruritus, Denies erythema, Denies rash and Denies wounds Neurologic Denies confusion, Denies loss of vision and Reports weakness Psychiatric Denies anxiety, Denies confusion, Denies depression, Denies homicidal ideation and Denies suicidal ideation Endocrine Denies palpitations Hematologic/Lymphatic Denies easy bruising Allergic/Immunologic Denies wheezing [facility] Medical History Insomnia (Chronic) BPH (benign prostatic hyperplasia) (Chronic) Sebaceous cyst (Chronic) Excessive daytime sleepiness (Chronic) Low back pain (Chronic) Weak urine stream (Chronic) Difficulty passing stool (Chronic) Fatigue (Chronic) Constipation (Inactive) Surgical History S/P inguinal hernia repair (Chronic) Family History Sister Hypothyroidism Father No problems noted. Mother No problems noted. Social History Smoking Status: Never smoker alcohol intake: current substance use type: does not use Family History Sister Hypothyroidism Father No problems noted. Mother No problems noted. Social History Smoking Status: Never smoker alcohol intake: current substance use type: does not use Exam Narrative Exam Narrative: GENERAL: 68-year-old male appears older than stated age, obviously uncomfortable in a bit frustrated HEAD: Atraumatic. Normocephalic. No temporal or scalp tenderness. EYES: Pupils equal round and reactive. Extraocular motions intact. No scleral icterus. No injection or drainage. ENT: Nose without bleeding, purulent drainage or septal hematoma. Throat without erythema, tonsillar hypertrophy or exudate. Uvula midline. Airway patent. NECK: Trachea midline. No JVD or lymphadenopathy. Supple, nontender, no meningeal signs. CARDIOVASCULAR: Regular rate and rhythm without murmurs, gallops, or rubs. RESPIRATORY: Clear to auscultation. Breath sounds equal bilaterally. No wheezes, rales, or rhonchi. GASTROINTESTINAL: Abdomen soft, non-tender, nondistended. No hepato-splenomega ly, or palpable masses. No guarding. EXTREMITIES: No clubbing, cyanosis, or edema. No joint tenderness, effusion, or edema noted. BACK: Nontender without deformity or crepitance. No flank tenderness. NEURO: AOx3. A bit of numbness in his lower extremities which he states is chronic SKIN: No rash or erythema. Initial Vital Signs Initial Vital Signs: Vital Signs Temperature 97.9 F 01/06/19 10:36 Pulse Rate 83 01/06/19 10:36 Respiratory Rate 18 01/06/19 10:36 Blood Pressure 137/87 01/06/19 10:36 Pulse Oximetry 98 01/06/19 10:36 Course Orders Ordered: ED Orders 01/06/19 11:40 Complete Blood Count AUTO DIFF Stat Comprehensive Metabolic Panel Stat Magnesium Stat 01/06/19 11:45 Ictotest Urine Stat Urinalysis and Microscopic Stat Urine Culture Stat Vital Signs - 8 hr 01/06/19 10:36 Temperature 97.9 F Pulse Rate 83 Respiratory Rate 18 Blood Pressure 137/87 Pulse Oximetry 98 MDM - Weakness Lab Data Result diagrams: 01/06/19 11:40 01/06/19 11:40 Lab Results 01/06/19 01/06/19 01/06/19 Range/Units 11:40 11:40 11:45 WBC 3.6 L (4.5-11.0) X10^3/uL RBC 4.57 (4.5-5.9) X10^6/uL Hgb 14.1 (13.5-17.5) g/dL Hct 40.3 L (41-53) % MCV 88.0 (80-100) fL MCH 30.8 (26-34) PG MCHC 35.0 (30-36) % RDW 13.0 (11.6-14.8) % Plt Count 248 (150-400) X10^3/uL Neut % (Auto) 66.9 (50-75) % Lymph % (Auto) 20.7 L (25-40) % Stephens % (Auto) 9.8 (3-14) % Eos % (Auto) 1.7 L (2-4) % Baso % (Auto) 0.9 (0-2) % Neut # (Auto) 2400 (9505-3455) /uL Lymph # (Auto) 700 L (1855-4387) /uL Stephens # (Auto) 400 (0-900) /uL Eos # (Auto) 100 (0-450) /uL Baso # (Auto) 0 (0-100) /uL Sodium 137 (137-145) mmol/L Potassium 4.1 (3.4-5.1) mmol/L Chloride 100 (98-107) mmol/L Carbon Dioxide 27 (22-32) mmol/L BUN 17 (9-20) mg/dL Creatinine 0.70 (0.66-1.25) mg/dL Estimated GFR > 60.0 (>60) mL/min BUN/Creatinine Ratio 24.3 H (6-22) Glucose 95 (80-110) mg/dL Calcium 9.5 (8.4-10.2) mg/dL Magnesium 2.0 (1.6-2.3) mg/dL Total Bilirubin 1.6 H (0.2-1.3) mg/dL AST 43 (17-59) IU/L ALT 16 L (21-72) IU/L Alkaline Phosphatase 87 (38-126) U/L Total Protein 7.3 (6.3-8.2) g/dL Albumin 4.3 (3.5-5.0) g/dL Globulin 3.0 (1.7-4.1) g/dL Albumin/Globulin Ratio 1.4 (1.0-2.8) Urine Color Yellow Urine Appearance Cloudy Urine pH 7.0 (4.5-8.0) Ur Specific [place] 1.025 (1.000-1.035) Urine Protein 2+ H (Negative) Urine Glucose (UA) Negative (Negative) g/dL Urine Ketones 1+ H (NEGATIVE) Urine Occult Blood 3+ H (Negative) Urine Nitrate Positive (Negative) Urine Bilirubin 1+ H (NEGATIVE) Urine Ictotest Positive H (Negative) Urine Urobilinogen 1.0 (0.2) E.U./dL Ur Leukocyte Esterase 3+ H (NEGATIVE) Urine RBC 30-100/hpf H (0-5/HPF) Urine WBC >100/hpf H (0-5/HPF) Amorphous Sediment 1+ Urine Bacteria Many (>30) H (None) Urine Mucus 2+ H (Negative) Ur Culture Indicated? Specimen cultured MDM Narrative Medical decision making narrative: Multiple etiologies for patient's symptoms considered including: [Electrode abnormality versus exacerbation of chronic illness versus infection versus other] Patient's symptoms improved or duration of stay with above-stated therapies. Findings and discharge diagnosis discussed with patient/family followed by verbalization of understanding Return precautions discussed with patient/family whom verbalize understanding. Discharge Plan Departure Patient Disposition: Home Clinical Impression: Weakness, Acute UTI Chronic pain Qualifiers: Chronic pain type: other chronic pain Qualified Code(s): G89.29 - Other chronic pain Discharge Date/Time: 01/06/19 12:39 Interventions: ED Discharge Assessment Last Done: 01/06/19 12:37 Instructions: DI for Urinary Tract Infection (UTI), DI for Chronic Pain -- Adult, DI for Muscle Weakness Activity Restrictions/Additional Instructions: *You have been diagnosed with [ chronic, worsening generalized weakness, UTI, chronic pain ] *What to do: *Take medications as directed. Please begin taking your Ultram throughout the course of the day according to the new prescription *Follow up with your primary care provider in 2-3 days, call for an appointment. Let them know you were seen in the Emergency Department and that we ask that you be seen in follow up *Return to ER if you should have any new, worsening or concerning symptoms Prescriptions: New tramadol [Ultram] 50 mg tablet 50 mg PO TID PRN (Reason: pain) Qty: 30 RF: 0 cephalexin [Keflex] 500 mg capsule 500 mg PO BID Qty: 14 RF: 0 No Action tamsulosin 0.4 mg capsule,extended release 24hr 0.4 mg PO DAILY Qty: 30 RF: 2 diclofenac sodium [Voltaren] 1 % gel 2 gram TOP QID Qty: 100 RF: 1 multivitamin capsule 1 cap PO DAILY Qty: 30 RF: 0 tramadol 50 mg tablet 100 mg PO BEDTIME Qty: 60 RF: 1 magnesium citrate solution 296 ml PO .one time Qty: 296 RF: 0 carbidopa-levodopa [Sinemet CR] 25-100 mg Tablet Extended Release 2 tab PO Q8H RF: 0 diazepam 10 mg tablet 5 mg PO BEDTIME PRN (Reason: sleep) RF: 0 Referrals: Wilner Green MD [Primary Care Provider] -
[2019-01-06 12:37] VITALS: BP 128/79; PULSE 78; RESP 16; O2SAT 98
== END 2019-01-06 12:39 | disposition home or self-care (01) ==
PROVIDERS: Emergency Provider Emergency Medicine; PCP Student in an Organized Health Care Education/Training Program
DX: G89.29 Other chronic pain (principal); R53.1 Weakness
CPT/HCPCS: 36415; 80053; 81001; 83735; 85025; 87077; 87086; 87186; 99282; 99283

== ENCOUNTER 2019-01-15 09:39 | Emergency (ER) | payer MEDICARE, MEDICAID, OTHER, SELFPAY ==
--- NOTE | 2019-01-15 09:47 | ED_ITS ---
HPI - Male Genitourinary General Chief complaint: Urogenital-Male Stated complaint: Catheter issuses Time Seen by Provider: 01/15/19 09:47 Source: patient and EMS Mode of arrival: EMS Limitations: no limitations History of Present Illness HPI Narrative: Patient is a 68-year-old male here with an indwelling Duran catheter. Was seen here in the emergency department in the past couple days for a catheter that was leaking. It appeared that time it was because I clamp was not working properly. He returns again today for concerns of the urinary catheter again not working properly. Patient states that he felt like it was leaking because the clamp was not working again. Related Data Home Medications Medication Instructions Recorded Confirmed carbidopa-levodopa [Sinemet CR] 2 tab PO Q8H 01/06/19 01/06/19 diazepam 5 mg PO BEDTIME PRN 01/06/19 01/06/19 Previous Rx's Medication Instructions Recorded multivitamin capsule 1 cap PO DAILY #30 cap 02/13/18 magnesium citrate 296 ml PO .one time #296 ml 03/11/18 tamsulosin 0.4 mg capsule 0.4 mg PO DAILY #30 cap 03/13/18 diclofenac 1 % topical gel 2 gram TOP QID #100 gram 07/20/18 tramadol 50 mg tablet 100 mg PO BEDTIME #60 tab 12/16/18 cephalexin [Keflex] 500 mg PO BID #14 cap 01/06/19 tramadol [Ultram] 50 mg PO TID PRN #30 tab 01/06/19 Allergies Allergy/AdvReac Type Severity Reaction Status Date / Time tramadol AdvReac Intermediate Hallucinati Verified 01/06/19 10:40 ons Review of Systems Constitutional Denies fever(s) Gastrointestinal Gastrointestinal: Denies abdominal pain, Denies nausea and Denies vomiting Genitourinary Comments: Duran catheter leaking Hematologic/Lymphatic Denies easy bleeding and Denies easy bruising [facility] Medical History Insomnia (Chronic) BPH (benign prostatic hyperplasia) (Chronic) Sebaceous cyst (Chronic) Excessive daytime sleepiness (Chronic) Low back pain (Chronic) Weak urine stream (Chronic) Difficulty passing stool (Chronic) Fatigue (Chronic) Constipation (Inactive) Social History Smoking Status: Never smoker alcohol intake: current substance use type: does not use Exam Initial Vital Signs Initial Vital Signs: Vital Signs Temperature 97.8 F 01/15/19 09:50 Pulse Rate 90 01/15/19 09:50 Respiratory Rate 13 01/15/19 09:50 Blood Pressure 150/86 H 01/15/19 09:50 Pulse Oximetry 98 01/15/19 09:50 HENMT Head: normal to inspection and normocephalic Resp Effort & Inspection: normal respiratory effort Auscultation: clear to auscultation bilaterally Cardio Rate: regular rate Rhythm: regular rhythm GI Inspection: non-distended Palpation: soft, No firm and No tender Other: Not normal external male genitalia with indwelling Duran catheter Skin Lesions: no lesions Rashes: no rashes Neuro General: alert, awake and oriented x3 Extrem General: normal to inspection and capillary refill normal Psych Appearance: grossly normal and well kempt Course Orders Ordered: ED Orders 01/15/19 09:45 Urinalysis and Microscopic Stat Urine Culture Stat Vital Signs - 8 hr 01/15/19 09:50 Temperature 97.8 F Pulse Rate 90 Respiratory Rate 13 Blood Pressure 150/86 H Pulse Oximetry 98 MDM - Male Genitourinary Lab Data Attestation: I reviewed the patient's lab results. Lab Results 01/15/19 Range/Units 09:45 Urine Color Yellow Urine Appearance Cloudy Urine pH 5.5 (4.5-8.0) Ur Specific [place] 1.025 (1.000-1.035) Urine Protein 2+ H (Negative) Urine Glucose (UA) Negative (Negative) g/dL Urine Ketones 2+ H (NEGATIVE) Urine Occult Blood 3+ H (Negative) Urine Nitrate Positive (Negative) Urine Bilirubin Negative (NEGATIVE) Urine Urobilinogen 2.0 H (0.2) E.U./dL Ur Leukocyte Esterase 3+ H (NEGATIVE) Urine RBC 30-100/hpf H (0-5/HPF) Urine WBC >100/hpf H (0-5/HPF) Urine Bacteria Many (>30) H (None) Urine Mucus 1+ H (Negative) Urine Yeast 10-30/hpf H (None) Ur Culture Indicated? Specimen cultured MDM Narrative Medical decision making narrative: Patient has nitrite positive urine today. Review of the past cultures shows greater than 100,000 colony-forming units of Staph epi. Patient is not having any fevers. He has most likely colonized. I will wait for the culture to return and sensitivities before starting any antibiotics. His Duran is draining. There is no signs of leakage is. Patient was given follow-up instructions and return precautions. Discharge Plan Departure Patient Disposition: Home Clinical Impression: Chronic indwelling Duran catheter Problem with Duran catheter Qualifiers: Encounter type: initial encounter Qualified Code(s): T83.9XXA - Unspecified complication of genitourinary prosthetic device, implant and graft, initial encounter Instructions: How to Care for Your Duran Catheter -- Male Activity Restrictions/Additional Instructions: Your Duran catheter seems to be working appropriately today. He do have bacteria in your urine however this is most likely a colonization. I do recommend you contact your urologist. Contact your primary doctor for follow- up. Return to the emergency department for any new or worsening symptoms Prescriptions: No Action tamsulosin 0.4 mg capsule,extended release 24hr 0.4 mg PO DAILY Qty: 30 RF: 2 diclofenac sodium [Voltaren] 1 % gel 2 gram TOP QID Qty: 100 RF: 1 multivitamin capsule 1 cap PO DAILY Qty: 30 RF: 0 tramadol 50 mg tablet 100 mg PO BEDTIME Qty: 60 RF: 1 magnesium citrate solution 296 ml PO .one time Qty: 296 RF: 0 carbidopa-levodopa [Sinemet CR] 25-100 mg Tablet Extended Release 2 tab PO Q8H RF: 0 diazepam 10 mg tablet 5 mg PO BEDTIME PRN (Reason: sleep) RF: 0 tramadol [Ultram] 50 mg tablet 50 mg PO TID PRN (Reason: pain) Qty: 30 RF: 0 cephalexin [Keflex] 500 mg capsule 500 mg PO BID Qty: 14 RF: 0 Referrals: Wilner Green MD [Primary Care Provider] -
[2019-01-15 09:50] VITALS: BP 150/86; PULSE 90; RESP 13; TEMP 36.6; O2SAT 98
[2019-01-15 10:12] LABS: Appearance Urine UA CLOUDY; Bilirubin Urine UA NEGATIVE (NEGATIVE); Color Urine UA YELLOW; Glucose Urine UA NEGATIVE (Negative); Ketones Urine UA 2+ (NEGATIVE); Leukocyte Esterase Urine UA 3+ (NEGATIVE); Nitrite Urine UA POSITIVE (Negative); Occult Blood Urine UA 3+ (Negative); Protein Urine UA 2+ (Negative); Specific Gravity Urine UA 1.025 (1.000-1.035); pH Urine UA 5.5 (4.5-8.0)
[2019-01-15 10:26] LABS: RBC Urine 30-100/HPF (0-5/HPF); WBC Urine >100/HPF (0-5/HPF)
[2019-01-15 10:28] LABS: Bacteria Urine Many (>30); Culture Indicated Urine Specimen Cultured; Mucus Urine 1+ (Negative)
[2019-01-15 11:10] VITALS: BP 125/65; PULSE 72; RESP 18; TEMP 36.9; O2SAT 99
--- NOTE | 2019-01-15 11:57 | PC.NURSE ---
Patient complaint of urinary catheter leaking; Replaced catheter;
--- NOTE | 2019-01-15 11:58 | PC.NURSE ---
Patient already on antibiotics for urinary infection;
== END 2019-01-15 11:15 | disposition home or self-care (01) ==
LOC: ED 10:48
PROVIDERS: Emergency Provider Emergency Medicine; PCP Student in an Organized Health Care Education/Training Program
DX: T83.9XXA Unspecified complication of genitourinary prosthetic device, implant and graft, initial encounter (principal); Z96.0 Presence of urogenital implants
CPT/HCPCS: 51705; 81001; 87077; 87086; 99283

== ENCOUNTER 2019-05-04 12:50 | Emergency (ER) | payer MEDICARE, OTHER, SELFPAY ==
[2019-05-04 12:50] VITALS: BP 143/82; PULSE 88; RESP 25; TEMP 36.6; O2SAT 96
--- NOTE | 2019-05-04 13:01 | DI.RAD.S_ITS ---
PROCEDURE: XR ABDOMEN 1V INDICATIONS: AMS, vomited improvied TECHNIQUE: One view of the abdomen acquired. COMPARISON: None. FINDINGS: Surgical changes and devices: None. Bowel: A single prominent air-filled bowel loop within the left upper abdomen probably represents the stomach. A large amount of stool seen within the colon. No air-filled distended small bowel loops are appreciated. Soft tissues: No suspicious abdominal calcifications. Visualized solid organ contours appear normal in size. Bones: No suspicious bony lesions. Mild to moderate degenerative changes of the pelvic joints and lumbar spine are present. IMPRESSION: 1. No bowel obstruction. 2. Probable colonic constipation. Dictated by: Hemal Daigle M.D. on 05/04/2019 at 12:42 Approved by: Hemal Daigle M.D. on 05/04/2019 at 12:43
--- NOTE | 2019-05-04 13:01 | ED.AMS ---
HPI - Altered Mental Status General Chief Complaint: Altered Mental Status Stated Complaint: Alt LOC- resolved, now vomiting. Time Seen by Provider: 05/04/19 13:00 Source: patient, family () and EMS Mode of arrival: EMS Limitations: no limitations History of Present Illness HPI narrative: 69-year-old male comes to the emergency department with alteration mental status. Patient was at home sort of had decreased mental status for short period of time and then had several episodes of emesis. Per EMS had 4 episodes total patient himself is now alert he is able to tell me his name, he knows the year he knows radius and is able to answer all questions appropriately. Patient can tell me that he does have Parkinson's disease. He denies any fevers or chills no headache, no chest pain or shortness of breath, no current nausea or vomiting although he states he did vomit earlier. He denies any new issues with bowel movements. Patient states he does have a catheter in place. Patient is a little bit difficult to understand secondary to his Parkinson's. Patient also had his Requip increased recently. Here in the department patient feels like he back to himself. Related Data Home Medications Medication Instructions Recorded Confirmed carbidopa-levodopa [Sinemet CR] 2 tab PO Q8H 01/06/19 05/04/19 dextromethorphan-quinidine 1 cap PO BID 05/04/19 05/04/19 [Nuedexta] diazepam 10 mg PO BEDTIME PRN 05/04/19 05/04/19 gabapentin 600 mg PO TID 05/04/19 05/04/19 polyethylene glycol 3350 17 g PO DAILY 05/04/19 05/04/19 psyllium husk [Metamucil] 1 packet PO TID 05/04/19 05/04/19 quetiapine 50 mg PO DAILY 05/04/19 05/04/19 ropinirole 2 mg PO BEDTIME 05/04/19 05/04/19 Previous Rx's Medication Instructions Recorded multivitamin capsule 1 cap PO DAILY #30 cap 02/13/18 tamsulosin 0.4 mg capsule 0.4 mg PO DAILY #30 cap 03/13/18 tramadol 50 mg tablet 100 mg PO BEDTIME #60 tab 12/16/18 [address]ing Permit See Rx Instructions .ROUTE 02/09/19 .COMPLEX #1 unit ciprofloxacin HCl 500 mg PO BID #14 tab 05/04/19 Allergies Allergy/AdvReac Type Severity Reaction Status Date / Time tramadol AdvReac Intermediate Hallucinati Verified 05/04/19 15:36 ons Review of Systems Review of Systems ROS Unobtainable: All systems reviewed & are unremarkable except as noted in HPI and below Constitutional Denies chills, Denies fever(s), Denies lethargy and Denies weakness Cardiovascular Denies chest pain, Denies irregular heart rhythm, Denies lightheadedness, Denies palpitations, Denies dyspnea and Denies orthopnea Respiratory Denies chest congestion, Denies cough, Denies dyspnea and Denies wheezing Gastrointestinal Gastrointestinal: Denies abdominal pain, Denies change in bowel habits, Denies diarrhea, Reports nausea (resolved per patient) and Reports vomiting (resolved per patient) Genitourinary Reports as per HPI (has charlton catheter), Denies hematuria, Denies genital pain and Denies flank pain Musculoskeletal Denies back pain Neurologic Reports as per HPI, Denies focal weakness, Denies sensory deficit and Denies weakness Endocrine Denies palpitations Allergic/Immunologic Denies wheezing Exam Narrative Exam Narrative: GEN: well nourished, well appearing male, alert and oriented x 3, patient appears to be in no acute distress. HEENT: Atraumatic, pupils are equal round reactive to light, extraocular movements are intact, nares are clear, TMs are clear with no fluid, there is no conjunctival pallor. Throat is clear without any exudates, erythema, tonsillar enlargement or uvular deviation, no facial droop. HEART: Regular rate and rhythm without murmur, clicks, rubs. Pulses are equal in upper and lower extremities LUNGS:Lungs clear to auscultation, no wheezes, rales, crackles, chest moves symmetrically ABD:bowel sounds normal, soft, non-tender, no guarding, rebound, rigidity, no masses noted, no hepatosplenomegaly :No CVA tenderness MSCL: Non-tender, no muscle atrophy, gait not tested. NEURO:CN 2-12 intact, sensation normal, reflexes 2/4 upper and lower extremities. Initial Vital Signs Initial Vital Signs: Vital Signs Temperature 97.8 F 05/04/19 12:50 Pulse Rate 88 05/04/19 12:50 Respiratory Rate 25 H 05/04/19 12:50 Blood Pressure 143/82 H 05/04/19 12:50 Pulse Oximetry 96 05/04/19 12:50 Scores GCS Jay coma scale eye opening: Spontaneous Jay coma scale verbal response: Orientated Jay coma scale motor response: Obey commands Jay coma scale total score: 15 Course Orders Ordered: ED Orders 05/04/19 12:45 B Type Natriuretic Peptide Stat Complete Blood Count AUTO DIFF Stat Comprehensive Metabolic Panel Stat Partial Thromboplastin Time Stat Prothrombin Time INR Stat Thyroid Stimulating Hormone Stat Troponin I Stat 05/04/19 13:01 XR abdomen 1V Stat 05/04/19 13:02 CT head/brain wo con Stat XR chest 1V Stat 05/04/19 13:50 Lactate (Lactic Acid) Stat 05/04/19 14:20 Urinalysis and Microscopic Stat Urine Culture Stat Discontinued Medications Ciprofloxacin (Cipro) 500 mg PO NOW ONE Stop: 05/04/19 15:36 Last Admin: 05/04/19 15:39 Dose: 500 mg Sodium Chloride (Normal Saline 0.9%) 1,000 mls @ 150 mls/hr IV CONT ÓSCAR Last Infusion: 05/04/19 15:37 Dose: 0 mls/hr Admin: 05/04/19 13:39 Dose: 150 mls/hr Vital Signs - 8 hr 05/04/19 12:50 05/04/19 14:34 05/04/19 15:36 Temperature 97.8 F Pulse Rate 88 90 85 Respiratory Rate 25 H 16 18 Blood Pressure 143/82 H Blood Pressure [Right Arm] 119/67 127/74 Pulse Oximetry 96 95 96 05/04/19 16:02 Temperature Pulse Rate 89 Respiratory Rate 17 Blood Pressure 127/74 Blood Pressure [Right Arm] Pulse Oximetry 96 MDM - Altered Mental Status Lab Data Attestation: I reviewed the patient's lab results. Result diagrams: 05/04/19 12:45 05/04/19 12:45 Lab Results 05/04/19 05/04/19 05/04/19 Range/Units 12:45 12:45 12:45 WBC 13.6 H (4.5-11.0) X10^3/uL RBC 4.23 L (4.5-5.9) X10^6/uL Hgb 13.0 L (13.5-17.5) g/dL Hct 38.6 L (41-53) % MCV 91.3 (80-100) fL MCH 30.8 (26-34) PG MCHC 33.7 (30-36) % RDW 13.1 (11.6-14.8) % Plt Count 295 (150-400) X10^3/uL Neut % (Auto) 82.8 H (50-75) % Lymph % (Auto) 10.5 L (25-40) % Bee % (Auto) 6.3 (3-14) % Eos % (Auto) 0.1 L (2-4) % Baso % (Auto) 0.3 (0-2) % Neut # (Auto) 99334 H (5057-7950) /uL Lymph # (Auto) 1400 (7164-7429) /uL Bee # (Auto) 900 (0-900) /uL Eos # (Auto) 0 (0-450) /uL Baso # (Auto) 0 (0-100) /uL PT 13.0 H (10.1-12.7) SECONDS INR 1.1 (0.9-1.3) APTT 57 H (26.4-36.2) SECONDS Sodium 138 (137-145) mmol/L Potassium 3.8 (3.4-5.1) mmol/L Chloride 99 (98-107) mmol/L Carbon Dioxide 30 (22-32) mmol/L BUN 18 (9-20) mg/dL Creatinine 0.70 (0.66-1.25) mg/dL Estimated GFR > 60.0 (>60) mL/min BUN/Creatinine Ratio 25.7 H (6-22) Glucose 122 H (80-110) mg/dL Lactate (0.7-2.1) mmol/L Calcium 9.2 (8.4-10.2) mg/dL Total Bilirubin 0.9 (0.2-1.3) mg/dL AST 20 (17-59) IU/L ALT 13 L (21-72) IU/L Alkaline Phosphatase 84 (38-126) U/L Troponin I < 0.012 (0.01-0.034) ng/mL B-Natriuretic Peptide (<100) Total Protein 7.3 (6.3-8.2) g/dL Albumin 4.0 (3.5-5.0) g/dL Globulin 3.3 (1.7-4.1) g/dL Albumin/Globulin Ratio 1.2 (1.0-2.8) TSH (0.47-4.68) uIU/mL Urine Color Urine Appearance Urine pH (4.5-8.0) Ur Specific [place] (1.000-1.035) Urine Protein (Negative) Urine Glucose (UA) (Negative) g/dL Urine Ketones (NEGATIVE) Urine Occult Blood (Negative) Urine Nitrate (Negative) Urine Bilirubin (NEGATIVE) Urine Urobilinogen (0.2) E.U./dL Ur Leukocyte Esterase (NEGATIVE) Urine RBC (0-5/HPF) Urine WBC (0-5/HPF) Ur Squamous Epith Cells (0-5/HPF) Urine Bacteria (None) Ur Culture Indicated? 05/04/19 05/04/19 05/04/19 Range/Units 12:45 12:45 13:50 WBC (4.5-11.0) X10^3/uL RBC (4.5-5.9) X10^6/uL Hgb (13.5-17.5) g/dL Hct (41-53) % MCV (80-100) fL MCH (26-34) PG MCHC (30-36) % RDW (11.6-14.8) % Plt Count (150-400) X10^3/uL Neut % (Auto) (50-75) % Lymph % (Auto) (25-40) % Bee % (Auto) (3-14) % Eos % (Auto) (2-4) % Baso % (Auto) (0-2) % Neut # (Auto) (5910-2356) /uL Lymph # (Auto) (4808-1792) /uL Bee # (Auto) (0-900) /uL Eos # (Auto) (0-450) /uL Baso # (Auto) (0-100) /uL PT (10.1-12.7) SECONDS INR (0.9-1.3) APTT (26.4-36.2) SECONDS Sodium (137-145) mmol/L Potassium (3.4-5.1) mmol/L Chloride (98-107) mmol/L Carbon Dioxide (22-32) mmol/L BUN (9-20) mg/dL Creatinine (0.66-1.25) mg/dL Estimated GFR (>60) mL/min BUN/Creatinine Ratio (6-22) Glucose (80-110) mg/dL Lactate 1.5 (0.7-2.1) mmol/L Calcium (8.4-10.2) mg/dL Total Bilirubin (0.2-1.3) mg/dL AST (17-59) IU/L ALT (21-72) IU/L Alkaline Phosphatase (38-126) U/L Troponin I (0.01-0.034) ng/mL B-Natriuretic Peptide 191 H (<100) Total Protein (6.3-8.2) g/dL Albumin (3.5-5.0) g/dL Globulin (1.7-4.1) g/dL Albumin/Globulin Ratio (1.0-2.8) TSH 3.27 (0.47-4.68) uIU/mL Urine Color Urine Appearance Urine pH (4.5-8.0) Ur Specific [place] (1.000-1.035) Urine Protein (Negative) Urine Glucose (UA) (Negative) g/dL Urine Ketones (NEGATIVE) Urine Occult Blood (Negative) Urine Nitrate (Negative) Urine Bilirubin (NEGATIVE) Urine Urobilinogen (0.2) E.U./dL Ur Leukocyte Esterase (NEGATIVE) Urine RBC (0-5/HPF) Urine WBC (0-5/HPF) Ur Squamous Epith Cells (0-5/HPF) Urine Bacteria (None) Ur Culture Indicated? 05/04/19 Range/Units 14:20 WBC (4.5-11.0) X10^3/uL RBC (4.5-5.9) X10^6/uL Hgb (13.5-17.5) g/dL Hct (41-53) % MCV (80-100) fL MCH (26-34) PG MCHC (30-36) % RDW (11.6-14.8) % Plt Count (150-400) X10^3/uL Neut % (Auto) (50-75) % Lymph % (Auto) (25-40) % Bee % (Auto) (3-14) % Eos % (Auto) (2-4) % Baso % (Auto) (0-2) % Neut # (Auto) (3929-7995) /uL Lymph # (Auto) (2917-7058) /uL Bee # (Auto) (0-900) /uL Eos # (Auto) (0-450) /uL Baso # (Auto) (0-100) /uL PT (10.1-12.7) SECONDS INR (0.9-1.3) APTT (26.4-36.2) SECONDS Sodium (137-145) mmol/L Potassium (3.4-5.1) mmol/L Chloride (98-107) mmol/L Carbon Dioxide (22-32) mmol/L BUN (9-20) mg/dL Creatinine (0.66-1.25) mg/dL Estimated GFR (>60) mL/min BUN/Creatinine Ratio (6-22) Glucose (80-110) mg/dL Lactate (0.7-2.1) mmol/L Calcium (8.4-10.2) mg/dL Total Bilirubin (0.2-1.3) mg/dL AST (17-59) IU/L ALT (21-72) IU/L Alkaline Phosphatase (38-126) U/L Troponin I (0.01-0.034) ng/mL B-Natriuretic Peptide (<100) Total Protein (6.3-8.2) g/dL Albumin (3.5-5.0) g/dL Globulin (1.7-4.1) g/dL Albumin/Globulin Ratio (1.0-2.8) TSH (0.47-4.68) uIU/mL Urine Color Yellow Urine Appearance Clear Urine pH 5.0 (4.5-8.0) Ur Specific [place] 1.025 (1.000-1.035) Urine Protein 2+ H (Negative) Urine Glucose (UA) Negative (Negative) g/dL Urine Ketones Trace H (NEGATIVE) Urine Occult Blood 1+ H (Negative) Urine Nitrate Positive (Negative) Urine Bilirubin Negative (NEGATIVE) Urine Urobilinogen 1.0 (0.2) E.U./dL Ur Leukocyte Esterase 2+ H (NEGATIVE) Urine RBC 1-5/hpf D (0-5/HPF) Urine WBC >100/hpf H (0-5/HPF) Ur Squamous Epith Cells n (0-5/HPF) Urine Bacteria Many (>30) H (None) Ur Culture Indicated? Specimen cultured Imaging Data CT scan - head: Radiologist's impression: [address] [address] [address] Scan Report Signed Patient: Rodney Peña BMR#: [id number] : 1Acct:[id number] Age/Sex: 69 / MDate of Service: 05/04/19 Loc: ED Accession Number: [id number] Procedure: CT head/brain wo con Ordering Provider: Cheryl Torres D.O. PROCEDURE: CT HEAD/BRAIN WO CON INDICATIONS: altered mental status, improved. vomited TECHNIQUE: Noncontrast 4.5 mm thick angled axial sections acquired from the foramen magnum to the vertex, with coronal and sagittal reformats. For radiation dose reduction, the following was used: automated exposure control, adjustment of mA and/or kV according to patient size. COMPARISON: [facility], MR, MR HEAD/BRAIN WO/W CON, 11/08/2018, 11:35. [facility], CT, CT HEAD/BRAIN WO CON, 02/17/2018, 8:04. FINDINGS: Image quality: Diagnostic CSF spaces: Basal cisterns are patent. No extra-axial fluid collections. The ventricles are symmetric in size and shape. Brain: No intracranial bleeds or masses. There is cerebral volume loss for age, with resultant ventricular and sulcal prominence. There are periventricular and deep white matter chronic small vessel ischemic changes. There is intracranial internal carotid artery atherosclerosis. Skull and face: Calvarium and visualized facial bones appear intact, without suspicious lesions. Sinuses: Visualized sinuses and mastoids are clear. IMPRESSION: No acute intracranial process is seen. No acute intracranial hemorrhage is seen. Dictated by: Vivek Edward M.D. on 05/04/2019 at 12:26 Approved by: Vivek Edward M.D. on 05/04/2019 at 12:27 Chest x-ray: Radiologist's impression: [address] [address] XRay Report Signed Patient: Rodney Peña BMR#: [id number] : 1Acct:[id number] Age/Sex: 69 / MDate of Service: 05/04/19 Loc: ED Accession Number: [id number] Procedure: XR chest 1V Ordering Provider: Cheryl Torres D.O. PROCEDURE: XR CHEST 1V INDICATIONS: AMS, vomited, improved. TECHNIQUE: One view of the chest was acquired. COMPARISON: [facility], CR, XR CHEST 1 VIEW, 12/05/2018, 10:40. FINDINGS: Surgical changes and devices: None. Lungs and pleura: Prominent perihilar interstitial markings are identified. Interstitial prominence is identified within the lungs, which is more pronounced centrally. No large effusion or definite pneumothorax is appreciated. Mediastinum: The heart is enlarged. The mediastinal silhouette is slightly prominent. Bones and chest wall: No suspicious bony lesions. Overlying soft tissues appear unremarkable. IMPRESSION: Cardiomegaly with associated moderate vascular congestion is suspicious for pulmonary edema. Please correlate clinically. Dictated by: Hemal Daigle M.D. on 05/04/2019 at 12:44 Approved by: Hemal Daigle M.D. on 05/04/2019 at 12:45 ECG Data Attestation: I personally reviewed and interpreted this ECG as follows: Prior ECG tracings: not available for review Interpretation: Sinus rhythm with frequent PVCs, rate of 90 ID 148 QRS of 122 QTC of 424. Nonspecific ST changes. No prior available. MDM Narrative Medical decision making narrative: Patient comes in with short. Alteration mental status, unclear the etiology although no lateralizing symptoms or stroke-like symptoms on evaluation or by history. Patient does have frequent PVCs no prior EKGs but lab work does not show any major abnormalities although he does have what appears to be UTI with nitrates he does have a Charlton catheter in place. This could be contributing to his symptoms as particularly the vomiting. Spoke with the patient he feels much better he was alert oriented appropriate and at baseline upon arrival he would like to return discussed with his Discharge Plan Departure Patient Disposition: Home Clinical Impression: Acute UTI Discharge Date/Time: 05/04/19 15:58 Interventions: ED Discharge Assessment Last Done: 05/04/19 16:02 Instructions: DI for Altered Mental Status Activity Restrictions/Additional Instructions: Follow up with your physician in the next 2-3 days for recheck. Call Tuesday morning for an appointment. Start antibiotics today. Your urine was sent for urine culture if it shows resistance to the antibiotics your started on we will call you. Return to the emergency department for fevers greater 100.4 F, recurrent symptoms altered mental status, persistent vomiting, chest, shortness of breath, lightheadedness or passing-out new swelling in her lower extremities or other new or concerning symptoms. Prescriptions: New ciprofloxacin HCl 500 mg tablet 500 mg PO BID Qty: 14 RF: 0 No Action tamsulosin 0.4 mg capsule,extended release 24hr 0.4 mg PO DAILY Qty: 30 RF: 2 multivitamin capsule 1 cap PO DAILY Qty: 30 RF: 0 tramadol 50 mg tablet 100 mg PO BEDTIME Qty: 60 RF: 1 Disabled Parking Permit See Rx Instructions .ROUTE .COMPLEX Qty: 1 RF: 0 diazepam 5 mg tablet 10 mg PO BEDTIME PRN (Reason: Sleep) RF: 0 ropinirole 2 mg tablet 2 mg PO BEDTIME RF: 0 gabapentin 300 mg capsule 600 mg PO TID RF: 0 polyethylene glycol 3350 17 gram/dose Powder 17 g PO DAILY RF: 0 quetiapine 50 mg tablet 50 mg PO DAILY RF: 0 Nuedexta 20-10 mg capsule 1 cap PO BID RF: 0 Metamucil 3.4 gram/5.4 gram Powder 1 packet PO TID RF: 0 carbidopa-levodopa [Sinemet CR] 25-100 mg Tablet Extended Release 2 tab PO Q8H RF: 0 Referrals: Wilner Green MD [Primary Care Provider] -
--- NOTE | 2019-05-04 13:04 | ED_ITS ---
HPI - Altered Mental Status General Chief Complaint: Altered Mental Status Stated Complaint: Alt LOC- resolved, now vomiting. Time Seen by Provider: 05/04/19 13:00 Source: patient, family () and EMS Mode of arrival: EMS Limitations: no limitations History of Present Illness HPI narrative: 69-year-old male comes to the emergency department with alteration mental status. Patient was at home sort of had decreased mental status for short period of time and then had several episodes of emesis. Per EMS had 4 episodes total patient himself is now alert he is able to tell me his name, he knows the year he knows radius and is able to answer all questions appropriately. Patient can tell me that he does have Parkinson's disease. He denies any fevers or chills no headache, no chest pain or shortness of breath, no current nausea or vomiting although he states he did vomit earlier. He denies any new issues with bowel movements. Patient states he does have a catheter in place. Patient is a little bit difficult to understand secondary to his Parkinson's. Patient also had his Requip increased recently. Here in the department patient feels like he back to himself. Related Data Home Medications Medication Instructions Recorded Confirmed carbidopa-levodopa [Sinemet CR] 2 tab PO Q8H 01/06/19 05/04/19 dextromethorphan-quinidine 1 cap PO BID 05/04/19 05/04/19 [Nuedexta] diazepam 10 mg PO BEDTIME PRN 05/04/19 05/04/19 gabapentin 600 mg PO TID 05/04/19 05/04/19 polyethylene glycol 3350 17 g PO DAILY 05/04/19 05/04/19 psyllium husk [Metamucil] 1 packet PO TID 05/04/19 05/04/19 quetiapine 50 mg PO DAILY 05/04/19 05/04/19 ropinirole 2 mg PO BEDTIME 05/04/19 05/04/19 Previous Rx's Medication Instructions Recorded multivitamin capsule 1 cap PO DAILY #30 cap 02/13/18 tamsulosin 0.4 mg capsule 0.4 mg PO DAILY #30 cap 03/13/18 tramadol 50 mg tablet 100 mg PO BEDTIME #60 tab 12/16/18 Disabled Parking Permit See Rx Instructions .ROUTE 02/09/19 .COMPLEX #1 unit ciprofloxacin HCl 500 mg PO BID #14 tab 05/04/19 Allergies Allergy/AdvReac Type Severity Reaction Status Date / Time tramadol AdvReac Intermediate Hallucinati Verified 05/04/19 15:36 ons Review of Systems Review of Systems ROS Unobtainable: All systems reviewed & are unremarkable except as noted in HPI and below Constitutional Denies chills, Denies fever(s), Denies lethargy and Denies weakness Cardiovascular Denies chest pain, Denies irregular heart rhythm, Denies lightheadedness, Denies palpitations, Denies dyspnea and Denies orthopnea Respiratory Denies chest congestion, Denies cough, Denies dyspnea and Denies wheezing Gastrointestinal Gastrointestinal: Denies abdominal pain, Denies change in bowel habits, Denies diarrhea, Reports nausea (resolved per patient) and Reports vomiting (resolved per patient) Genitourinary Reports as per HPI (has charlton catheter), Denies hematuria, Denies genital pain and Denies flank pain Musculoskeletal Denies back pain Neurologic Reports as per HPI, Denies focal weakness, Denies sensory deficit and Denies weakness Endocrine Denies palpitations Allergic/Immunologic Denies wheezing Exam Narrative Exam Narrative: GEN: well nourished, well appearing male, alert and oriented x 3, patient appears to be in no acute distress. HEENT: Atraumatic, pupils are equal round reactive to light, extraocular movements are intact, nares are clear, TMs are clear with no fluid, there is no conjunctival pallor. Throat is clear without any exudates, erythema, tonsillar enlargement or uvular deviation, no facial droop. HEART: Regular rate and rhythm without murmur, clicks, rubs. Pulses are equal in upper and lower extremities LUNGS:Lungs clear to auscultation, no wheezes, rales, crackles, chest moves symmetrically ABD:bowel sounds normal, soft, non-tender, no guarding, rebound, rigidity, no masses noted, no hepatosplenomegaly :No CVA tenderness MSCL: Non-tender, no muscle atrophy, gait not tested. NEURO:CN 2-12 intact, sensation normal, reflexes 2/4 upper and lower extremities. Initial Vital Signs Initial Vital Signs: Vital Signs Temperature 97.8 F 05/04/19 12:50 Pulse Rate 88 05/04/19 12:50 Respiratory Rate 25 H 05/04/19 12:50 Blood Pressure 143/82 H 05/04/19 12:50 Pulse Oximetry 96 05/04/19 12:50 Scores GCS Jay coma scale eye opening: Spontaneous Jay coma scale verbal response: Orientated Jay coma scale motor response: Obey commands Jay coma scale total score: 15 Course Orders Ordered: ED Orders 05/04/19 12:45 B Type Natriuretic Peptide Stat Complete Blood Count AUTO DIFF Stat Comprehensive Metabolic Panel Stat Partial Thromboplastin Time Stat Prothrombin Time INR Stat Thyroid Stimulating Hormone Stat Troponin I Stat 05/04/19 13:01 XR abdomen 1V Stat 05/04/19 13:02 CT head/brain wo con Stat XR chest 1V Stat 05/04/19 13:50 Lactate (Lactic Acid) Stat 05/04/19 14:20 Urinalysis and Microscopic Stat Urine Culture Stat Discontinued Medications Ciprofloxacin (Cipro) 500 mg PO NOW ONE Stop: 05/04/19 15:36 Last Admin: 05/04/19 15:39 Dose: 500 mg Sodium Chloride (Normal Saline 0.9%) 1,000 mls @ 150 mls/hr IV CONT ÓSCAR Last Infusion: 05/04/19 15:37 Dose: 0 mls/hr Admin: 05/04/19 13:39 Dose: 150 mls/hr Vital Signs - 8 hr 05/04/19 12:50 05/04/19 14:34 05/04/19 15:36 Temperature 97.8 F Pulse Rate 88 90 85 Respiratory Rate 25 H 16 18 Blood Pressure 143/82 H Blood Pressure [Right Arm] 119/67 127/74 Pulse Oximetry 96 95 96 05/04/19 16:02 Temperature Pulse Rate 89 Respiratory Rate 17 Blood Pressure 127/74 Blood Pressure [Right Arm] Pulse Oximetry 96 MDM - Altered Mental Status Lab Data Attestation: I reviewed the patient's lab results. Result diagrams: 05/04/19 12:45 05/04/19 12:45 Lab Results 05/04/19 05/04/19 05/04/19 Range/Units 12:45 12:45 12:45 WBC 13.6 H (4.5-11.0) X10^3/uL RBC 4.23 L (4.5-5.9) X10^6/uL Hgb 13.0 L (13.5-17.5) g/dL Hct 38.6 L (41-53) % MCV 91.3 (80-100) fL MCH 30.8 (26-34) PG MCHC 33.7 (30-36) % RDW 13.1 (11.6-14.8) % Plt Count 295 (150-400) X10^3/uL Neut % (Auto) 82.8 H (50-75) % Lymph % (Auto) 10.5 L (25-40) % [place] % (Auto) 6.3 (3-14) % Eos % (Auto) 0.1 L (2-4) % Baso % (Auto) 0.3 (0-2) % Neut # (Auto) 71723 H (8639-6825) /uL Lymph # (Auto) 1400 (1349-7284) /uL [place] # (Auto) 900 (0-900) /uL Eos # (Auto) 0 (0-450) /uL Baso # (Auto) 0 (0-100) /uL PT 13.0 H (10.1-12.7) SECONDS INR 1.1 (0.9-1.3) APTT 57 H (26.4-36.2) SECONDS Sodium 138 (137-145) mmol/L Potassium 3.8 (3.4-5.1) mmol/L Chloride 99 (98-107) mmol/L Carbon Dioxide 30 (22-32) mmol/L BUN 18 (9-20) mg/dL Creatinine 0.70 (0.66-1.25) mg/dL Estimated GFR > 60.0 (>60) mL/min BUN/Creatinine Ratio 25.7 H (6-22) Glucose 122 H (80-110) mg/dL Lactate (0.7-2.1) mmol/L Calcium 9.2 (8.4-10.2) mg/dL Total Bilirubin 0.9 (0.2-1.3) mg/dL AST 20 (17-59) IU/L ALT 13 L (21-72) IU/L Alkaline Phosphatase 84 (38-126) U/L Troponin I < 0.012 (0.01-0.034) ng/mL B-Natriuretic Peptide (<100) Total Protein 7.3 (6.3-8.2) g/dL Albumin 4.0 (3.5-5.0) g/dL Globulin 3.3 (1.7-4.1) g/dL Albumin/Globulin Ratio 1.2 (1.0-2.8) TSH (0.47-4.68) uIU/mL Urine Color Urine Appearance Urine pH (4.5-8.0) Ur Specific [place] (1.000-1.035) Urine Protein (Negative) Urine Glucose (UA) (Negative) g/dL Urine Ketones (NEGATIVE) Urine Occult Blood (Negative) Urine Nitrate (Negative) Urine Bilirubin (NEGATIVE) Urine Urobilinogen (0.2) E.U./dL Ur Leukocyte Esterase (NEGATIVE) Urine RBC (0-5/HPF) Urine WBC (0-5/HPF) Ur Squamous Epith Cells (0-5/HPF) Urine Bacteria (None) Ur Culture Indicated? 05/04/19 05/04/19 05/04/19 Range/Units 12:45 12:45 13:50 WBC (4.5-11.0) X10^3/uL RBC (4.5-5.9) X10^6/uL Hgb (13.5-17.5) g/dL Hct (41-53) % MCV (80-100) fL MCH (26-34) PG MCHC (30-36) % RDW (11.6-14.8) % Plt Count (150-400) X10^3/uL Neut % (Auto) (50-75) % Lymph % (Auto) (25-40) % [place] % (Auto) (3-14) % Eos % (Auto) (2-4) % Baso % (Auto) (0-2) % Neut # (Auto) (6073-9350) /uL Lymph # (Auto) (4239-6893) /uL [place] # (Auto) (0-900) /uL Eos # (Auto) (0-450) /uL Baso # (Auto) (0-100) /uL PT (10.1-12.7) SECONDS INR (0.9-1.3) APTT (26.4-36.2) SECONDS Sodium (137-145) mmol/L Potassium (3.4-5.1) mmol/L Chloride (98-107) mmol/L Carbon Dioxide (22-32) mmol/L BUN (9-20) mg/dL Creatinine (0.66-1.25) mg/dL Estimated GFR (>60) mL/min BUN/Creatinine Ratio (6-22) Glucose (80-110) mg/dL Lactate 1.5 (0.7-2.1) mmol/L Calcium (8.4-10.2) mg/dL Total Bilirubin (0.2-1.3) mg/dL AST (17-59) IU/L ALT (21-72) IU/L Alkaline Phosphatase (38-126) U/L Troponin I (0.01-0.034) ng/mL B-Natriuretic Peptide 191 H (<100) Total Protein (6.3-8.2) g/dL Albumin (3.5-5.0) g/dL Globulin (1.7-4.1) g/dL Albumin/Globulin Ratio (1.0-2.8) TSH 3.27 (0.47-4.68) uIU/mL Urine Color Urine Appearance Urine pH (4.5-8.0) Ur Specific [place] (1.000-1.035) Urine Protein (Negative) Urine Glucose (UA) (Negative) g/dL Urine Ketones (NEGATIVE) Urine Occult Blood (Negative) Urine Nitrate (Negative) Urine Bilirubin (NEGATIVE) Urine Urobilinogen (0.2) E.U./dL Ur Leukocyte Esterase (NEGATIVE) Urine RBC (0-5/HPF) Urine WBC (0-5/HPF) Ur Squamous Epith Cells (0-5/HPF) Urine Bacteria (None) Ur Culture Indicated? 05/04/19 Range/Units 14:20 WBC (4.5-11.0) X10^3/uL RBC (4.5-5.9) X10^6/uL Hgb (13.5-17.5) g/dL Hct (41-53) % MCV (80-100) fL MCH (26-34) PG MCHC (30-36) % RDW (11.6-14.8) % Plt Count (150-400) X10^3/uL Neut % (Auto) (50-75) % Lymph % (Auto) (25-40) % [place] % (Auto) (3-14) % Eos % (Auto) (2-4) % Baso % (Auto) (0-2) % Neut # (Auto) (5106-9093) /uL Lymph # (Auto) (3608-4462) /uL [place] # (Auto) (0-900) /uL Eos # (Auto) (0-450) /uL Baso # (Auto) (0-100) /uL PT (10.1-12.7) SECONDS INR (0.9-1.3) APTT (26.4-36.2) SECONDS Sodium (137-145) mmol/L Potassium (3.4-5.1) mmol/L Chloride (98-107) mmol/L Carbon Dioxide (22-32) mmol/L BUN (9-20) mg/dL Creatinine (0.66-1.25) mg/dL Estimated GFR (>60) mL/min BUN/Creatinine Ratio (6-22) Glucose (80-110) mg/dL Lactate (0.7-2.1) mmol/L Calcium (8.4-10.2) mg/dL Total Bilirubin (0.2-1.3) mg/dL AST (17-59) IU/L ALT (21-72) IU/L Alkaline Phosphatase (38-126) U/L Troponin I (0.01-0.034) ng/mL B-Natriuretic Peptide (<100) Total Protein (6.3-8.2) g/dL Albumin (3.5-5.0) g/dL Globulin (1.7-4.1) g/dL Albumin/Globulin Ratio (1.0-2.8) TSH (0.47-4.68) uIU/mL Urine Color Yellow Urine Appearance Clear Urine pH 5.0 (4.5-8.0) Ur Specific [place] 1.025 (1.000-1.035) Urine Protein 2+ H (Negative) Urine Glucose (UA) Negative (Negative) g/dL Urine Ketones Trace H (NEGATIVE) Urine Occult Blood 1+ H (Negative) Urine Nitrate Positive (Negative) Urine Bilirubin Negative (NEGATIVE) Urine Urobilinogen 1.0 (0.2) E.U./dL Ur Leukocyte Esterase 2+ H (NEGATIVE) Urine RBC 1-5/hpf D (0-5/HPF) Urine WBC >100/hpf H (0-5/HPF) Ur Squamous Epith Cells n (0-5/HPF) Urine Bacteria Many (>30) H (None) Ur Culture Indicated? Specimen cultured Imaging Data CT scan - head: Radiologist's impression: [address] [address] [address] Scan Report Signed Patient: Rodney Peña BMR#: [id number] : 1Acct:[id number] Age/Sex: 69 / MDate of Service: 05/04/19 Loc: ED Accession Number: [id number] Procedure: CT head/brain wo con Ordering Provider: Cheryl Torres D.O. PROCEDURE: CT HEAD/BRAIN WO CON INDICATIONS: altered mental status, improved. vomited TECHNIQUE: Noncontrast 4.5 mm thick angled axial sections acquired from the foramen magnum to the vertex, with coronal and sagittal reformats. For radiation dose reduction, the following was used: automated exposure control, adjustment of mA and/or kV according to patient size. COMPARISON: [facility], MR, MR HEAD/BRAIN WO/W CON, 11/08/2018, 11:35. [facility], CT, CT HEAD/BRAIN WO CON, 02/17/2018, 8:04. FINDINGS: Image quality: Diagnostic CSF spaces: Basal cisterns are patent. No extra-axial fluid collections. The ventricles are symmetric in size and shape. Brain: No intracranial bleeds or masses. There is cerebral volume loss for age, with resultant ventricular and sulcal prominence. There are periventricular and deep white matter chronic small vessel ischemic changes. There is intracranial internal carotid artery atherosclerosis. Skull and face: Calvarium and visualized facial bones appear intact, without suspicious lesions. Sinuses: Visualized sinuses and mastoids are clear. IMPRESSION: No acute intracranial process is seen. No acute intracranial hemorrhage is seen. Dictated by: Vivek Edward M.D. on 05/04/2019 at 12:26 Approved by: Vivek Edward M.D. on 05/04/2019 at 12:27 Chest x-ray: Radiologist's impression: [address] [address] XRay Report Signed Patient: Rodney Peña BMR#: [id number] : 1Acct:[id number] Age/Sex: 69 / MDate of Service: 05/04/19 Loc: ED Accession Number: [id number] Procedure: XR chest 1V Ordering Provider: Cheryl Torres D.O. PROCEDURE: XR CHEST 1V INDICATIONS: AMS, vomited, improved. TECHNIQUE: One view of the chest was acquired. COMPARISON: [facility], CR, XR CHEST 1 VIEW, 12/05/2018, 10:40. FINDINGS: Surgical changes and devices: None. Lungs and pleura: Prominent perihilar interstitial markings are identified. Interstitial prominence is identified within the lungs, which is more pronounced centrally. No large effusion or definite pneumothorax is appreciated. Mediastinum: The heart is enlarged. The mediastinal silhouette is slightly prominent. Bones and chest wall: No suspicious bony lesions. Overlying soft tissues appear unremarkable. IMPRESSION: Cardiomegaly with associated moderate vascular congestion is suspicious for pulmonary edema. Please correlate clinically. Dictated by: Hemal Daigle M.D. on 05/04/2019 at 12:44 Approved by: Hemal Daigle M.D. on 05/04/2019 at 12:45 ECG Data Attestation: I personally reviewed and interpreted this ECG as follows: Prior ECG tracings: not available for review Interpretation: Sinus rhythm with frequent PVCs, rate of 90 CA 148 QRS of 122 QTC of 424. Nonspecific ST changes. No prior available. MDM Narrative Medical decision making narrative: Patient comes in with short. Alteration mental status, unclear the etiology although no lateralizing symptoms or stroke- like symptoms on evaluation or by history. Patient does have frequent PVCs no prior EKGs but lab work does not show any major abnormalities although he does have what appears to be UTI with nitrates he does have a Charlton catheter in place. This could be contributing to his symptoms as particularly the vomiting. Spoke with the patient he feels much better he was alert oriented appropriate and at baseline upon arrival he would like to return discussed with his Discharge Plan Departure Patient Disposition: Home Clinical Impression: Acute UTI Discharge Date/Time: 05/04/19 15:58 Interventions: ED Discharge Assessment Last Done: 05/04/19 16:02 Instructions: DI for Altered Mental Status Activity Restrictions/Additional Instructions: Follow up with your physician in the next 2-3 days for recheck. Call Tuesday morning for an appointment. Start antibiotics today. Your urine was sent for urine culture if it shows resistance to the antibiotics your started on we will call you. Return to the emergency department for fevers greater 100.4 F, recurrent symptoms altered mental status, persistent vomiting, chest, shortness of breath, lightheadedness or passing-out new swelling in her lower extremities or other new or concerning symptoms. Prescriptions: New ciprofloxacin HCl 500 mg tablet 500 mg PO BID Qty: 14 RF: 0 No Action tamsulosin 0.4 mg capsule,extended release 24hr 0.4 mg PO DAILY Qty: 30 RF: 2 multivitamin capsule 1 cap PO DAILY Qty: 30 RF: 0 tramadol 50 mg tablet 100 mg PO BEDTIME Qty: 60 RF: 1 Disabled Parking Permit See Rx Instructions .ROUTE .COMPLEX Qty: 1 RF: 0 diazepam 5 mg tablet 10 mg PO BEDTIME PRN (Reason: Sleep) RF: 0 ropinirole 2 mg tablet 2 mg PO BEDTIME RF: 0 gabapentin 300 mg capsule 600 mg PO TID RF: 0 polyethylene glycol 3350 17 gram/dose Powder 17 g PO DAILY RF: 0 quetiapine 50 mg tablet 50 mg PO DAILY RF: 0 Nuedexta 20-10 mg capsule 1 cap PO BID RF: 0 Metamucil 3.4 gram/5.4 gram Powder 1 packet PO TID RF: 0 carbidopa-levodopa [Sinemet CR] 25-100 mg Tablet Extended Release 2 tab PO Q8H RF: 0 Referrals: Wilner Green MD [Primary Care Provider] -
[2019-05-04 13:21] LABS: Add Manual Diff / Slide Review NO; Basophils Absolute Auto 0 /uL (0-100); Basophils Percent Auto 0.3 % (0-2); Eosinophils Absolute Auto 0 /uL (0-450); Eosinophils Percent Auto 0.1 % (2-4); Hematocrit 38.6 % (41-53); Lymphocytes Absolute Auto 1400 /uL (1100-4500); Lymphocytes Percent Auto 10.5 % (25-40); Mean Corpuscular HGB Conc 33.7 % (30-36); Mean Corpuscular Hemoglobin 30.8 PG (26-34); Mean Corpuscular Volume 91.3 fL (80-100); Monocytes Absolute Auto 900 /uL (0-900); Monocytes Percent Auto 6.3 % (3-14); Neutrophils Absolute Auto 11300 /uL (1500-7000); Neutrophils Percent Auto 82.8 % (50-75); Platelet Count 295 X10^3/uL (150-400); Red Blood Cell Count 4.23 X10^6/uL (4.5-5.9); Red Cell Distribution Width 13.1 % (11.6-14.8); White Blood Cell Count 13.6 X10^3/uL (4.5-11.0)
[2019-05-04 13:24] LABS: INR 1.1 (0.9-1.3)
[2019-05-04 13:25] LABS: HEMOLYSIS < 15 (0-50); Sodium 138 mmol/L (137-145)
[2019-05-04 13:26] LABS: PTT Partial Thromboplastin Tim 57 SECONDS (26.4-36.2)
[2019-05-04 13:28] LABS: Alanine Aminotransferase 13 IU/L (21-72); Albumin Globulin Ratio 1.2 (1.0-2.8); Alkaline Phosphatase 84 U/L (38-126); Aspartate Aminotransferase 20 IU/L (17-59); BUN Creatinine Ratio 25.7 (6-22); Bilirubin Total 0.9 mg/dL (0.2-1.3); Blood Urea Nitrogen 18 mg/dL (9-20); Calcium 9.2 mg/dL (8.4-10.2); Carbon Dioxide 30 mmol/L (22-32); Chloride 99 mmol/L (98-107); Estimated Glomerular Filt Rate > 60.0 mL/min (>60); Globulin 3.3 g/dL (1.7-4.1); Glucose 122 mg/dL (80-110); Potassium 3.8 mmol/L (3.4-5.1); Total Protein 7.3 g/dL (6.3-8.2)
[2019-05-04 13:39] LABS: Troponin I < 0.012 ng/mL (0.01-0.034)
[2019-05-04] MEDS: SODIUM CHLORIDE 0.9% 1,000 ML 150 ML IV (13:39)
[2019-05-04 13:59] LABS: Thyroid Stimulating Hormone 3.27 uIU/mL (0.47-4.68)
[2019-05-04 14:09] LABS: Lactate (Lactic Acid) 1.5 mmol/L (0.7-2.1)
[2019-05-04 14:28] LABS: B Type Natriuretic Peptide 191 (<100)
[2019-05-04 14:32] LABS: Appearance Urine UA CLEAR; Bilirubin Urine UA NEGATIVE (NEGATIVE); Color Urine UA YELLOW; Glucose Urine UA NEGATIVE (Negative); Ketones Urine UA TRACE (NEGATIVE); Leukocyte Esterase Urine UA 2+ (NEGATIVE); Nitrite Urine UA POSITIVE (Negative); Occult Blood Urine UA 1+ (Negative); Protein Urine UA 2+ (Negative); Specific Gravity Urine UA 1.025 (1.000-1.035)
[2019-05-04 14:34] VITALS: BP 119/67; PULSE 90; RESP 16; O2SAT 95
[2019-05-04 14:41] LABS: Bacteria Urine Many (>30); Culture Indicated Urine Specimen Cultured; RBC Urine 1-5/HPF (0-5/HPF); Squamous Epithelial Cell Urine n (0-5/HPF); WBC Urine >100/HPF (0-5/HPF)
[2019-05-04 15:36] VITALS: BP 127/74; PULSE 85; RESP 18; O2SAT 96
[2019-05-04] MEDS: CIPROFLOXACIN 500 MG TABLET PO (15:39)
[2019-05-04 16:02] VITALS: BP 127/74; PULSE 89; RESP 17; O2SAT 96
== END 2019-05-04 15:58 | disposition home or self-care (01) ==
PROVIDERS: Emergency Provider Emergency Medicine; PCP Student in an Organized Health Care Education/Training Program
DX: N39.0 Urinary tract infection, site not specified (principal); R41.82 Altered mental status, unspecified; R11.11 Vomiting without nausea
CPT/HCPCS: 36415; 36591; 70450; 71045; 74018; 80053; 81001; 83605; 83880; 84443; 84484; 85025; 85610; 85730; 87077; 87086; 87186; 93005; 96360; 96361; 99283; 99285

== ENCOUNTER 2019-05-30 11:35 | Emergency (ER) | payer MEDICARE, OTHER, SELFPAY ==
--- NOTE | 2019-05-30 11:53 | ED.MALEGU ---
HPI - Male Genitourinary <EFFIE Motley - Last Filed: 05/30/19 13:14> General Chief complaint: Urogenital-Male Stated complaint: catheter was put in now cant pee Time Seen by Provider: 05/30/19 11:42 Source: patient and family Mode of arrival: ambulatory Limitations: no limitations History of Present Illness HPI Narrative: The patient is a 69-year-old male nonsmoker with history of Parkinson's who presents with his for chief complaint of urinary difficulties. They state that home health replace his Charlton catheter this morning approximately 90 minutes ago, since then he has not been able to get any urine from his catheter. He states that this has never happened before. states that he has not had these issues prior to the replacement 90 minutes ago. He states he is very uncomfortable and is Charlton catheter area and feels as though his bladder is being blocked up. Previously he denies any dysuria, fevers, vomiting, diarrhea, chest pain or shortness of breath. They are concerned that there is an issue with his Charlton catheter. Related Data Home Medications Medication Instructions Recorded Confirmed carbidopa-levodopa [Sinemet CR] 2 tab PO Q8H 01/06/19 05/08/19 dextromethorphan-quinidine 1 cap PO BID 05/04/19 05/08/19 [Nuedexta] gabapentin 600 mg PO TID 05/04/19 05/08/19 polyethylene glycol 3350 17 g PO DAILY 05/04/19 05/08/19 psyllium husk [Metamucil] 1 packet PO TID 05/04/19 05/08/19 quetiapine 50 mg PO DAILY 05/04/19 05/08/19 ropinirole 2 mg PO BEDTIME 05/04/19 05/08/19 Previous Rx's Medication Instructions Recorded multivitamin 1 cap PO DAILY #30 cap 02/13/18 tamsulosin 0.4 mg capsule 0.4 mg PO DAILY #30 cap 03/13/18 tramadol 50 mg tablet 100 mg PO BEDTIME #60 tab 12/16/18 Allergies Allergy/AdvReac Type Severity Reaction Status Date / Time tramadol AdvReac Intermediate Hallucinati Verified 05/08/19 11:01 ons Review of Systems <EFFIE Motley - Last Filed: 05/30/19 13:14> Constitutional Constitutional: Denies body ache(s), Denies chills and Denies fever(s) Eyes Eyes: Reports system reviewed and no additional complaints, except as docu ENT Ears, Nose, Mouth, and Throat: Reports system reviewed and no additional complaints, except as docu Cardiovascular Cardiovascular: Denies chest pain, Denies rapid heart rate, Denies irregular heart rhythm and Denies dyspnea Respiratory Respiratory: Denies cough and Denies dyspnea Gastrointestinal Gastrointestinal: Reports abdominal pain, Denies diarrhea, Denies nausea and Denies vomiting Genitourinary Genitourinary: Reports as per HPI Musculoskeletal Musculoskeletal: Reports system reviewed and no additional complaints, except as docu Integumentary/Breasts Skin/Breast: Reports system reviewed and no additional complaints, except as docu Neurologic Neurologic: Reports as per HPI PFSH <EFFIE Motley - Last Filed: 05/30/19 13:14> Medical History BPH (benign prostatic hyperplasia) (Chronic) Constipation (Inactive) Difficulty passing stool (Chronic) Excessive daytime sleepiness (Chronic) Fatigue (Chronic) Insomnia (Chronic) Low back pain (Chronic) Sebaceous cyst (Chronic) Weak urine stream (Chronic) Surgical History S/P inguinal hernia repair (Chronic) Family History Sister Hypothyroidism Father No problems noted. Mother No problems noted. Social History Smoking Status: Never smoker alcohol intake: current substance use type: does not use Family History Sister Hypothyroidism Father No problems noted. Mother No problems noted. Social History Smoking Status: Never smoker alcohol intake: current substance use type: does not use Exam <EFFIE Motley - Last Filed: 05/30/19 13:14> Initial Vital Signs Initial Vital Signs: Vital Signs Temperature 97.5 F L 09/18/19 11:54 Pulse Rate 67 05/30/19 11:54 Respiratory Rate 17 05/30/19 11:54 Blood Pressure 148/82 H 05/30/19 11:54 Pulse Oximetry 98 05/30/19 11:54 Const General: cooperative, comfortable, No acute distress, No diaphoretic and No intoxicated appearing Orientation: alert and awake Limitations: altered mental status Resp Effort & Inspection: normal respiratory effort, able to speak in complete sentences, no respiratory distress and no use of accessory muscles Auscultation: clear to auscultation bilaterally, no rales, no rhonchi and no wheezes Cardio Rate: regular rate Rhythm: regular rhythm Heart Sounds: no click, no gallops, no murmurs and no rubs Pulses: normal peripheral pulses GI Inspection: non-distended Palpation: soft, no hepatosplenomegaly, No guarding, No pulsatile mass and No tender Auscultation: normal bowel sounds External: other (charlton in place) Neuro General: alert and awake Speech: expressive aphasia (normal for patient per ) <Connor Moss DO - Last Filed: 05/30/19 22:04> Initial Vital Signs Initial Vital Signs: Vital Signs Temperature 97.5 F L 05/30/19 11:54 Pulse Rate 67 05/30/19 11:54 Respiratory Rate 17 05/30/19 11:54 Blood Pressure 148/82 H 05/30/19 11:54 Pulse Oximetry 98 05/30/19 11:54 Course <EFFIE Motley - Last Filed: 05/30/19 13:14> Orders Ordered: ED Orders 05/30/19 12:30 Urinalysis and Microscopic Stat Urine Culture Stat Vital Signs Vital signs: Vital Signs - 8 hr 05/30/19 11:54 Temperature 97.5 F L Pulse Rate 67 Respiratory Rate 17 Blood Pressure 148/82 H Pulse Oximetry 98 <Connor Moss DO - Last Filed: 05/30/19 22:04> Orders Ordered: ED Orders 05/30/19 12:30 Urinalysis and Microscopic Stat Urine Culture Stat Vital Signs Vital signs: Vital Signs - 8 hr 05/30/19 11:54 Temperature 97.5 F L Pulse Rate 67 Respiratory Rate 17 Blood Pressure 148/82 H Pulse Oximetry 98 MDM - Male Genitourinary <JUSTINE MotleyP-BC - Last Filed: 05/30/19 13:14> Lab Data Labs: Lab Results 05/30/19 Range/Units 12:30 Urine Color [place] Urine Appearance Sl cloudy Urine pH 6.0 (4.5-8.0) Ur Specific [place] <=1.005 (1.000-1.035) Urine Protein Trace H (Negative) Urine Glucose (UA) Negative (Negative) g/dL Urine Ketones Negative (NEGATIVE) Urine Occult Blood 3+ H (Negative) Urine Nitrate Negative (Negative) Urine Bilirubin Negative (NEGATIVE) Urine Urobilinogen 0.2 (0.2) E.U./dL Ur Leukocyte Esterase 1+ H (NEGATIVE) Urine RBC 30-100/hpf H (0-5/HPF) Urine WBC 5-10/hpf H (0-5/HPF) Ur Squamous Epith Cells 0-1 /hpf (0-5/HPF) Urine Bacteria Few (2-10) H (None) Ur Culture Indicated? Specimen cultured MDM Narrative Medical decision making narrative: The patient is a 69-year-old male who presents after his Charlton catheter was replaced this morning and he was unable to use it. The Charlton catheter was replaced, and he had a yellow urine in the back after placement. Urinalysis was sent to evaluate for possible infection. He is noted to have few bacteria, but no nitrates and no symptoms of UTI this point. Urine cultures pending at this time. Patient may be colonized due to longstanding Charlton catheter. Discussed this with and elected to not treat for UTI at this point time. Encouraged follow-up with PCP. Discussed come back to ER for any acute concerns. Patient have no questions or concerns upon discharge. <Connor Moss DO - Last Filed: 05/30/19 22:04> Lab Data Labs: Lab Results 05/30/19 Range/Units 12:30 Urine Color [place] Urine Appearance Sl cloudy Urine pH 6.0 (4.5-8.0) Ur Specific [place] <=1.005 (1.000-1.035) Urine Protein Trace H (Negative) Urine Glucose (UA) Negative (Negative) g/dL Urine Ketones Negative (NEGATIVE) Urine Occult Blood 3+ H (Negative) Urine Nitrate Negative (Negative) Urine Bilirubin Negative (NEGATIVE) Urine Urobilinogen 0.2 (0.2) E.U./dL Ur Leukocyte Esterase 1+ H (NEGATIVE) Urine RBC 30-100/hpf H (0-5/HPF) Urine WBC 5-10/hpf H (0-5/HPF) Ur Squamous Epith Cells 0-1 /hpf (0-5/HPF) Urine Bacteria Few (2-10) H (None) Ur Culture Indicated? Specimen cultured Discharge Plan Departure Patient Disposition: Home Clinical Impression: Charlton catheter problem Qualifiers: Encounter type: initial encounter Qualified Code(s): T83.9XXA - Unspecified complication of genitourinary prosthetic device, implant and graft, initial encounter Discharge Date/Time: 05/30/19 13:50 Instructions: How to Care for Your Charlton Catheter -- Male Activity Restrictions/Additional Instructions: Please follow up with primary care provider. Today we removed the Charlton that was placed this morning and replaced with another one. There is a urine culture pending at this time. Please come back to the emergency department for any acute concerns. Please monitor for signs of infection such as fever, confusion etc Prescriptions: No Action tamsulosin 0.4 mg capsule,extended release 24hr 0.4 mg PO DAILY Qty: 30 RF: 2 multivitamin capsule 1 cap PO DAILY Qty: 30 RF: 0 tramadol 50 mg tablet 100 mg PO BEDTIME Qty: 60 RF: 1 ropinirole 2 mg tablet 2 mg PO BEDTIME RF: 0 gabapentin 300 mg capsule 600 mg PO TID RF: 0 polyethylene glycol 3350 17 gram/dose Powder 17 g PO DAILY RF: 0 quetiapine 50 mg tablet 50 mg PO DAILY RF: 0 Nuedexta 20-10 mg capsule 1 cap PO BID RF: 0 Metamucil 3.4 gram/5.4 gram Powder 1 packet PO TID RF: 0 carbidopa-levodopa [Sinemet CR] 25-100 mg Tablet Extended Release 2 tab PO Q8H RF: 0 Referrals: Wilner Green MD [Primary Care Provider] -
[2019-05-30 11:54] VITALS: BP 148/82; PULSE 67; RESP 17; TEMP 36.4; O2SAT 98; BMI 25.9
--- NOTE | 2019-05-30 12:27 | PC.NURSE ---
Catheter removed and copious amounts of blood comes from urethra. Provider aware.
[2019-05-30 12:40] LABS: Appearance Urine UA SL CLOUDY; Bilirubin Urine UA NEGATIVE (NEGATIVE); Glucose Urine UA NEGATIVE (Negative); Ketones Urine UA NEGATIVE (NEGATIVE); Leukocyte Esterase Urine UA 1+ (NEGATIVE); Nitrite Urine UA NEGATIVE (Negative); Occult Blood Urine UA 3+ (Negative); Protein Urine UA TRACE (Negative); Specific Gravity Urine UA <=1.005 (1.000-1.035); Urobilinogen Urine UA 0.2 E.U./dL (0.2)
[2019-05-30 12:41] LABS: Color Urine UA PINK
[2019-05-30 13:06] LABS: Bacteria Urine Few (2-10); Culture Indicated Urine Specimen Cultured; RBC Urine 30-100/HPF (0-5/HPF); Squamous Epithelial Cell Urine 0-1 /HPF (0-5/HPF); WBC Urine 5-10/HPF (0-5/HPF)
[2019-05-30 13:36] VITALS: BP 122/75; PULSE 78; RESP 17; O2SAT 100
== END 2019-05-30 13:50 | disposition home or self-care (01) ==
PROVIDERS: Emergency Provider Nurse Practitioner Family; PCP Student in an Organized Health Care Education/Training Program
DX: T83.9XXA Unspecified complication of genitourinary prosthetic device, implant and graft, initial encounter (principal)
CPT/HCPCS: 51701; 51705; 81001; 87077; 87086; 87186; 99283

== ENCOUNTER 2019-06-22 11:58 | Inpatient (IN) | payer OTHER, MEDICARE, SELFPAY ==
[2019-06-22] VITALS (8 sets, daily range): BP systolic 101–146; BP diastolic 55–78; PULSE 89–122; RESP 18–22; TEMP 36.4–38.1; O2SAT 94–98; BMI 22.2
--- NOTE | 2019-06-22 12:03 | ED.FALL ---
HPI - Fall <JYOTI Motley-BC - Last Filed: 06/22/19 17:30> General Chief Complaint: Fall Stated Complaint: Fall, no injury noted Time Seen by Provider: 06/22/19 11:59 Source: EMS Mode of arrival: EMS Limitations: altered mental status History of Present Illness HPI Narrative: The patient is a 69-year-old male nonsmoker with history of Parkinson's disease and dementia who presents by EMS for chief complaint of multiple falls at home. EMS states that he has fallen 3 times in the past 24 hours. They state that the patient has recently gone home on hospice, and the patient's feels as though he is too much to handle at home. EMS reports that he has been combative with them and unwilling to allow them to take vital signs. They state that the patient denies any pain the patient denies any pain on my interview. The patient has been in this facility multiple times for urinary tract infection. Related Data Home Medications Medication Instructions Recorded Confirmed gabapentin 600 mg PO TID 05/04/19 06/22/19 quetiapine 50 mg PO DAILY 05/04/19 06/22/19 carbidopa-levodopa 2 tab PO TID 06/22/19 06/22/19 clonazepam 2 mg PO Q4H PRN 06/22/19 06/22/19 dextromethorphan-quinidine 1 cap PO DAILY 06/22/19 06/22/19 [Nuedexta] lorazepam 0.5 - 2 mg PO Q2H PRN 06/22/19 06/22/19 methadone [Methadose] 2 mg PO DAILY 06/22/19 06/22/19 morphine concentrate 5 mg PO Q1H PRN 06/22/19 06/22/19 quetiapine 50 mg PO Q4H PRN 06/22/19 06/22/19 sennosides [senna] 8.6 - 34.4 mg PO BID PRN 06/22/19 06/22/19 Allergies Allergy/AdvReac Type Severity Reaction Status Date / Time tramadol AdvReac Intermediate Hallucinati Verified 06/22/19 11:59 ons Review of Systems <EFFIE Motley - Last Filed: 06/22/19 17:30> Review of Systems ROS Unobtainable: Unobtainable due to medical condition Patient History <EFFIE Motley - Last Filed: 06/22/19 17:30> Medical History Medical History BPH (benign prostatic hyperplasia) (Chronic) Constipation (Inactive) Difficulty passing stool (Chronic) Excessive daytime sleepiness (Chronic) Fatigue (Chronic) Insomnia (Chronic) Low back pain (Chronic) Sebaceous cyst (Chronic) Weak urine stream (Chronic) Surgical History Surgical History S/P inguinal hernia repair (Chronic) Family History Sister Hypothyroidism Father No problems noted. Mother No problems noted. Social History Smoking Status: Never smoker alcohol intake: current substance use type: does not use Family History Family History Sister Hypothyroidism Father No problems noted. Mother No problems noted. Social History Social History household members: significant other Smoking Status: Never smoker alcohol intake: current substance use type: does not use alcohol intake frequency: 0-2 drinks per day Substance Use Type: does not use Exam <EFFIE Motley - Last Filed: 06/22/19 17:30> Narrative Exam Narrative: GENERAL: Chronically ill male, lying on stretcher HEAD: Atraumatic. Normocephalic. No temporal or scalp tenderness. EYES: Pupils equal round and reactive. Extraocular motions intact. No scleral icterus. No injection or drainage. ENT: Nose without bleeding, purulent drainage or septal hematoma. Throat without erythema, tonsillar hypertrophy or exudate. Uvula midline. Airway patent. NECK: Trachea midline. No JVD or lymphadenopathy. Supple, nontender, no meningeal signs. CARDIOVASCULAR: Regular rate and rhythm RESPIRATORY: Decreased bilateral breath sounds to auscultation. Breath sounds equal bilaterally. No wheezes, rales, or rhonchi. No cough. No increased respiratory effort. No accessory muscle use. GASTROINTESTINAL: Abdomen soft, non-tender, nondistended. No hepato-splenomegaly, or palpable masses. No guarding. Duran catheter in place. Active bowel sounds all 4 quadrants. EXTREMITIES: No clubbing, cyanosis, or edema. No joint tenderness, effusion, or edema noted. BACK: Nontender without deformity or crepitance. No flank tenderness. NEURO: Alert. Interactive. States no no no SKIN: No rash or erythema laceration or abrasion on visible skin Initial Vital Signs Initial Vital Signs: Vital Signs Temperature 97.5 F L 06/22/19 11:59 Pulse Rate 107 H 06/22/19 11:59 Respiratory Rate 18 06/22/19 11:59 Blood Pressure 146/55 H 06/22/19 11:59 Pulse Oximetry 98 06/22/19 11:59 <Connor Moss DO - Last Filed: 06/22/19 20:45> Initial Vital Signs Initial Vital Signs: Vital Signs Temperature 97.5 F L 06/22/19 11:59 Pulse Rate 107 H 06/22/19 11:59 Respiratory Rate 18 06/22/19 11:59 Blood Pressure 146/55 H 06/22/19 11:59 Pulse Oximetry 98 06/22/19 11:59 Course <EFFIE Motley - Last Filed: 06/22/19 17:30> Orders Ordered: ED Orders 06/22/19 12:48 XR chest 1V Stat 06/22/19 15:10 Urinalysis and Microscopic Stat Urine Culture Stat Carbidopa/Levodopa (Sinemet Er 50-200 Tab) 1 each PO TID [facility] Clonazepam (Klonopin) 2 mg PO Q4H PRN PRN Reason: TERMINAL AGITATION Gabapentin (Neurontin) 600 mg PO TID [facility] Influenza Virus Vaccine (Flu Vaccine) 0.5 ml IM .ONCE ONE Stop: 06/23/19 09:01 Lorazepam (Ativan) 0.5 mg PO Q2H PRN PRN Reason: anxiety/trouble breathing Methadone HCl (Methadone Intensol) 2 mg PO DAILY [facility] Morphine Sulfate (Morphine) 5 mg PO Q1H PRN PRN Reason: PAIN OR TROUBLE BREATHING Dextromethorphan Hydrobromide 20 Mg, Quinidine Sulfate 10 Mg (Nuedexta Caps) 1 cap PO DAILY [facility] Quetiapine Fumarate (Seroquel) 50 mg PO DAILY [facility] Quetiapine Fumarate (Seroquel) 50 mg PO Q4H PRN PRN Reason: Agitation Sennosides (Senna) 8.6 mg PO BID PRN PRN Reason: Constipation Trazodone HCl (Desyrel) 25 mg PO BEDTIME ÓSCAR Discontinued Medications Acetaminophen (Tylenol) 975 mg PO NOW ONE Stop: 06/22/19 14:18 Last Admin: 06/22/19 14:20 Dose: 975 mg Documented by: GEORGINA Carbidopa/Levodopa (Sinemet 25-100 Tab) 2 each PO NOW ONE Stop: 06/22/19 14:06 Last Admin: 06/22/19 14:17 Dose: 2 each Documented by: GEORGINA Non-Formulary Medication (Clonazepam) 2 mg PO Q4H PRN PRN Reason: terminal agitation Non-Formulary Medication (Morphine Concentrate) 5 mg PO Q1H PRN PRN Reason: pain or trouble breathing Vital Signs Vital signs: Vital Signs - 8 hr 06/22/19 13:43 06/22/19 15:32 Temperature 100.6 F H Pulse Rate 110 H 122 H Respiratory Rate 22 18 Blood Pressure [Left Arm] 101/78 133/63 Pulse Oximetry 96 95 <Connor Moss, - Last Filed: 06/22/19 20:45> Orders Ordered: ED Orders 06/22/19 12:48 XR chest 1V Stat 06/22/19 15:10 Urinalysis and Microscopic Stat Urine Culture Stat Carbidopa/Levodopa (Sinemet Er 50-200 Tab) 1 each PO TID [facility] Clonazepam (Klonopin) 2 mg PO Q4H PRN PRN Reason: TERMINAL AGITATION Gabapentin (Neurontin) 600 mg PO TID [facility] Influenza Virus Vaccine (Flu Vaccine) 0.5 ml IM .ONCE ONE Stop: 06/23/19 09:01 Lorazepam (Ativan) 0.5 mg PO Q2H PRN PRN Reason: anxiety/trouble breathing Methadone HCl (Methadone Intensol) 2 mg PO DAILY [facility] Morphine Sulfate (Morphine) 5 mg PO Q1H PRN PRN Reason: PAIN OR TROUBLE BREATHING Dextromethorphan Hydrobromide 20 Mg, Quinidine Sulfate 10 Mg (Nuedexta Caps) 1 cap PO DAILY [facility] Quetiapine Fumarate (Seroquel) 50 mg PO DAILY [facility] Quetiapine Fumarate (Seroquel) 50 mg PO Q4H PRN PRN Reason: Agitation Sennosides (Senna) 8.6 mg PO BID PRN PRN Reason: Constipation Trazodone HCl (Desyrel) 25 mg PO BEDTIME ÓSCAR Discontinued Medications Acetaminophen (Tylenol) 975 mg PO NOW ONE Stop: 06/22/19 14:18 Last Admin: 06/22/19 14:20 Dose: 975 mg Documented by: GEORGINA Carbidopa/Levodopa (Sinemet 25-100 Tab) 2 each PO NOW ONE Stop: 06/22/19 14:06 Last Admin: 06/22/19 14:17 Dose: 2 each Documented by: GEORGINA Non-Formulary Medication (Clonazepam) 2 mg PO Q4H PRN PRN Reason: terminal agitation Non-Formulary Medication (Morphine Concentrate) 5 mg PO Q1H PRN PRN Reason: pain or trouble breathing Vital Signs Vital signs: Vital Signs - 8 hr 06/22/19 13:43 06/22/19 15:32 Temperature 100.6 F H Pulse Rate 110 H 122 H Respiratory Rate 22 18 Blood Pressure [Left Arm] 101/78 133/63 Pulse Oximetry 96 95 MDM - Fall <JYOTI Motley-BC - Last Filed: 06/22/19 17:30> Lab Data Result diagrams: 06/22/19 18:42 06/22/19 18:42 Labs: Lab Results 06/22/19 Range/Units 15:10 Urine Color Yellow Urine Appearance Sl cloudy Urine pH 5.5 (4.5-8.0) Ur Specific [employer] 1.015 (1.000-1.035) Urine Protein 2+ H (Negative) Urine Glucose (UA) Negative (Negative) g/dL Urine Ketones 1+ H (NEGATIVE) Urine Occult Blood 3+ H (Negative) Urine Nitrate Positive (Negative) Urine Bilirubin Negative (NEGATIVE) Urine Urobilinogen 1.0 (0.2) E.U./dL Ur Leukocyte Esterase 2+ H (NEGATIVE) Urine RBC 1-5/hpf D (0-5/HPF) Urine WBC 10-30/hpf H (0-5/HPF) Ur Squamous Epith Cells 0-1 /hpf (0-5/HPF) Amorphous Sediment 2+ Urine Bacteria Many (>30) H (None) Granular Casts 1-5/lpf (None) Ur Culture Indicated? Specimen cultured MDM Narrative Medical decision making narrative: The patient is a 69-year-old male who presents with a chief complaint of multiple falls at home. The patient declined pain on multiple evaluations throughout his stay in the emergency department. He is on hospice at this point time, and I was called by the hospice provider from [facility] [place], Dr. Luciana Vinson. The social media editor from hospice came to evaluate the patient. They helped arrange for admission to this facility. Per Dr. Vinson, basic urinalysis and chest x-ray were done. However she discussed holding off on further care until the arrival of /social media editor. The patient transferred from afebrile, to low-grade fever during his stay in the emergency department, and hospice and hospitalist were both made aware. Given his history of urinary tract infections, as well as indwelling Duran catheter, I am suspicious of a UTI. Patient's filled out a POLST form to illustrate comfort measures only. Hospice spoke with our hospitalist, Dr. Smalls to help arrange for admission. The patient was accepted by Dr. smalls for inpatient admission for hospice care with urine pending. <Connor Moss, DO - Last Filed: 06/22/19 20:45> Lab Data Labs: Lab Results 06/22/19 Range/Units 15:10 Urine Color Yellow Urine Appearance Sl cloudy Urine pH 5.5 (4.5-8.0) Ur Specific [employer] 1.015 (1.000-1.035) Urine Protein 2+ H (Negative) Urine Glucose (UA) Negative (Negative) g/dL Urine Ketones 1+ H (NEGATIVE) Urine Occult Blood 3+ H (Negative) Urine Nitrate Positive (Negative) Urine Bilirubin Negative (NEGATIVE) Urine Urobilinogen 1.0 (0.2) E.U./dL Ur Leukocyte Esterase 2+ H (NEGATIVE) Urine RBC 1-5/hpf D (0-5/HPF) Urine WBC 10-30/hpf H (0-5/HPF) Ur Squamous Epith Cells 0-1 /hpf (0-5/HPF) Amorphous Sediment 2+ Urine Bacteria Many (>30) H (None) Granular Casts 1-5/lpf (None) Ur Culture Indicated? Specimen cultured Discharge Plan Departure Patient Disposition: Admitted As Inpatient Clinical Impression: Admission for hospice care Discharge Date/Time: 06/22/19 16:50 Admit Date/Time: 06/22/19 16:24 Admit Provider: Rosa Smalls
--- NOTE | 2019-06-22 12:48 | DI.RAD.S_ITS ---
PROCEDURE: XR CHEST 1V INDICATIONS: ? aspiration TECHNIQUE: One view of the chest was acquired. COMPARISON: [facility], CR, XR CHEST 1 VIEW, 12/05/2018, 10:40. [facility], CR, XR CHEST 1V, 05/04/2019, 13:12. FINDINGS: Surgical changes and devices: None. Lungs and pleura: Cephalization of the pulmonary vasculature and perihilar opacities concerning for CHF. No pleural effusions or pneumothorax. Mediastinum: Mediastinal contours appear normal. Heart is enlarged Bones and chest wall: No suspicious bony lesions. Overlying soft tissues appear unremarkable. IMPRESSION: Cardiomegaly with cephalization of pulmonary vascular and perihilar opacities suspicious for CHF. Dictated by: Christine Mcelroy MD, PhD on 06/22/2019 at 12:49 Approved by: Christine Mcelroy MD, PhD on 06/22/2019 at 12:50
[2019-06-22] MEDS: CARBIDOPA-LEVODOPA 25/100 TABLET 2 EACH PO (14:17)
[2019-06-22] MEDS: ACETAMINOPHEN 325 MG TABLET 975 MG PO (14:20)
[2019-06-22 15:37] LABS: Appearance Urine UA SL CLOUDY; Bilirubin Urine UA NEGATIVE (NEGATIVE); Color Urine UA YELLOW; Glucose Urine UA NEGATIVE (Negative); Ketones Urine UA 1+ (NEGATIVE); Leukocyte Esterase Urine UA 2+ (NEGATIVE); Nitrite Urine UA POSITIVE (Negative); Occult Blood Urine UA 3+ (Negative); Protein Urine UA 2+ (Negative); Specific Gravity Urine UA 1.015 (1.000-1.035); pH Urine UA 5.5 (4.5-8.0)
[2019-06-22 15:52] LABS: RBC Urine 1-5/HPF (0-5/HPF); Squamous Epithelial Cell Urine 0-1 /HPF (0-5/HPF); WBC Urine 10-30/HPF (0-5/HPF)
[2019-06-22 15:53] LABS: Amorphous Sediment Urine 2+; Bacteria Urine Many (>30); Culture Indicated Urine Specimen Cultured; Granular Casts Urine 1-5/LPF
--- NOTE | 2019-06-22 17:23 | DIET.PN ---
Dietary Progress Note Assessment: 69y M c hx of Parkinsons dz and dementia admitted for multiple falls in past 24h where reports she can no longer care for him. HT: 177.8cm WT: 70.3kg BMI: 22.2 Pt weight record at includes 05/04/19 @ 82.6kg (15% wt loss in 6w, severe), and 01/15/19 @ 86.1kg (19% wt loss in 5 mo, severe). Pt unintentional wt loss showing serious decline in past 6w. Pt currently taking levo-dopa which competes c absorption of dietary amino acids 1:1. Please space ONS protein supplements keeping no PRO intake 1.5 hr before and 1.5 after administration of this medication. Labs: labs have not come back at time of this note. MNA: Tyrell: [address] Nutrition Diagnosis: Acute Severe PCM r/t decreased PO intake secondary to advancement of Parkinsons and dementia aeb 15% unintentional wt loss in 6w (severe) and medications which compete for protein absorption (levo-dopa). Interventions: Ensure Enlive tid in addition to trays. *Please do not give ONS PRO supps 1.5hr before or after administering levo-dopa. Diet Order: Recc General diet EER: 2100 kcal (30g/kg), 90g PRO (1.3g/kg per maln), 2.2 L fluids Monitoring/Evaluations: I&Os, wt, associated labs, POs, ONS tolerance
[2019-06-22 18:49] LABS: Add Manual Diff / Slide Review NO; Basophils Absolute Auto 0 /uL (0-100); Basophils Percent Auto 0.2 % (0-2); Eosinophils Absolute Auto 0 /uL (0-450); Eosinophils Percent Auto 0.2 % (2-4); Hematocrit 33.1 % (41-53); Hemoglobin 11.2 g/dL (13.5-17.5); Lymphocytes Absolute Auto 700 /uL (1100-4500); Lymphocytes Percent Auto 6.7 % (25-40); Mean Corpuscular Hemoglobin 30.8 PG (26-34); Mean Corpuscular Volume 90.7 fL (80-100); Monocytes Absolute Auto 900 /uL (0-900); Monocytes Percent Auto 8.5 % (3-14); Neutrophils Absolute Auto 9200 /uL (1500-7000); Neutrophils Percent Auto 84.4 % (50-75); Platelet Count 255 X10^3/uL (150-400); Red Blood Cell Count 3.65 X10^6/uL (4.5-5.9); Red Cell Distribution Width 12.7 % (11.6-14.8); White Blood Cell Count 10.9 X10^3/uL (4.5-11.0)
[2019-06-22 19:05] LABS: Alanine Aminotransferase 17 IU/L (21-72); Albumin 3.4 g/dL (3.5-5.0); Albumin Globulin Ratio 1.1 (1.0-2.8); Alkaline Phosphatase 56 U/L (38-126); Aspartate Aminotransferase 357 IU/L (17-59); BUN Creatinine Ratio 27.5 (6-22); Bilirubin Total 1.7 mg/dL (0.2-1.3); Blood Urea Nitrogen 22 mg/dL (9-20); Calcium 8.6 mg/dL (8.4-10.2); Carbon Dioxide 25 mmol/L (22-32); Chloride 103 mmol/L (98-107); Estimated Glomerular Filt Rate > 60.0 mL/min (>60); Glucose 101 mg/dL (80-110); HEMOLYSIS < 15 (0-50); Potassium 3.6 mmol/L (3.4-5.1); Sodium 137 mmol/L (137-145); Total Protein 6.4 g/dL (6.3-8.2)
[2019-06-22] MEDS: TRAZODONE 50 MG TABLET 25 MG PO (21:17)
[2019-06-22] MEDS: GABAPENTIN 300 MG CAPSULE 600 MG PO (21:17)
[2019-06-22] MEDS: CARBIDOPA-LEVODOPA ER 50/200 TABLET 1 EACH PO (21:18)
--- NOTE | 2019-06-22 22:54 | PC.NURSE ---
Pt arrives to floor via stretcher alone. Patient is unable to give history on self and unable to answer most questions. Patient is able to follow some commands and make some needs known. However, answers most questions with yah. Patient was transf. with slider board. Patient is grabby and fidgety with blankets in room, movements are ridged and patient has cont. to pull and pick at charlton-cath. Leg strap was provided to pt for securement of charlton as patient arrived without one. When patient arrived to floor he was soaked in his own clothing, per the ED nurse patient just broke his fever. Patient was incont. of stool as well with no brief on just his sweatpants. Patient was changed and cleaned up and placed in gown from hospital. VSS. bed in low pos. alarm active. Call light w/in reach.
[2019-06-22] MEDS: QUETIAPINE 25 MG TABLET 50 MG PO (23:41)
[2019-06-22] MEDS: TRIMETH/SULFA 160/800 (DS) TABLET 1 TAB PO (23:42)
--- NOTE | 2019-06-23 00:56 | P.HP_ITS ---
History of Present Illness History of Present Illness Date Patient Seen: 06/22/19 Time Patient Seen: 21:24 Chief complaint: Fall, no injury noted Narrative: Mr. julia Reveles is a 61-year-old male patient with history of Parkinson's disease and dementia, Creutzfeldt-Ricardo disease, BPH with indwelling Duran catheter, UTI, insomnia and constipation who presents to the ER via EMS following multiple falls at home. The patient has recently entered into hospice care due to his end-stage parkinsonism and has experience progressive deterioration and sustained 3 falls within the last 24 hours. The family has been attempting to care for the patient home but this time is feeling they are unable to manage the patient. The patient has been previously evaluated by Neurology who discontinued benzodiazepines has worsening his dementia. He had been started on quetiapine with minimal results. The patient exhibits behavioral instability with varying levels of cooperation with care. At the time of evaluation the patient is unable to communicate effectively and family is not present for additional information. The patient is admitted to hospice general inpatient care for further evaluation and stabilization to be able to return to his home setting. Patient History Medical History BPH (benign prostatic hyperplasia) (Chronic) Constipation (Inactive) Difficulty passing stool (Chronic) Excessive daytime sleepiness (Chronic) Fatigue (Chronic) Insomnia (Chronic) Low back pain (Chronic) Sebaceous cyst (Chronic) Weak urine stream (Chronic) Surgical History S/P inguinal hernia repair (Chronic) Family History Sister Hypothyroidism Father No problems noted. Mother No problems noted. Social History household members: significant other Smoking Status: Never smoker alcohol intake: current substance use type: does not use Family & Social History Family History Sister Hypothyroidism Father No problems noted. Mother No problems noted. Social History: household members significant other Safety & Behavioral: Feels Safe in Current Yes Environment Suicidal Ideation Description None Suicide Plan Description No Plan Tobacco & Substance use: Smoking Status Never smoker alcohol intake current alcohol intake frequency 0-2 drinks per day Substance Use Type does not use Comment: Advanced directives: Code status has been confirmed to be DO NOT RESUSCITATE/DO NOT INTUBATE, comfort measures and antibiotics are acceptable. Meds Home Medications and Allergies Home Medications Medication Instructions Recorded Confirmed Type gabapentin 600 mg PO TID 05/04/19 06/22/19 History quetiapine 50 mg PO DAILY 05/04/19 06/22/19 History carbidopa-levodopa 2 tab PO TID 06/22/19 06/22/19 History clonazepam 2 mg PO Q4H PRN 06/22/19 06/22/19 History dextromethorphan-quinidine 1 cap PO DAILY 06/22/19 06/22/19 History [Nuedexta] lorazepam 0.5 - 2 mg PO Q2H PRN 06/22/19 06/22/19 History methadone [Methadose] 2 mg PO DAILY 06/22/19 06/22/19 History morphine concentrate 5 mg PO Q1H PRN 06/22/19 06/22/19 History quetiapine 50 mg PO Q4H PRN 06/22/19 06/22/19 History sennosides [senna] 8.6 - 34.4 mg PO BID PRN 06/22/19 06/22/19 History Allergies Allergy/AdvReac Type Severity Reaction Status Date / Time tramadol AdvReac Intermediate Hallucinati Verified 06/22/19 11:59 ons Review of Systems Review of Systems ROS Unobtainable: unobtainable due to mental condition (Advanced parkinsonism, metabolic encephalopathy secondary to UTI.) Exam Vital Signs (past 8 hours): - 06/22/19 17:00 06/22/19 17:05 06/22/19 19:29 Temperature 99.1 F 99.1 F 99.0 F Pulse Rate 111 H 113 H Respiratory Rate 20 18 Blood Pressure 141/74 H 137/74 Pulse Oximetry 94 94 06/22/19 23:30 Temperature 98.4 F Pulse Rate 89 Respiratory Rate 18 Blood Pressure 123/74 Pulse Oximetry 94 Oxygen Delivery Method Room Air Oxygen Flow Rate 0 Narrative Exam Narrative: GENERAL APPEARANCE: well developed, non communicative, agitated, in no acute distress. HEAD: Normocephalic, atraumatic, no scalp lesions. EYES: pupils equal, round, reactive to light and accommodation, sclera non- icteric. ORAL CAVITY: mucosa dry without lesions or exudate. THROAT: normal, no erythema, no exudate, posterior pharynx normal, uvula mi dline. NECK/THYROID: neck supple, no thyromegaly, trachea midline. SKIN: [place], warm and dry HEART: regular rate and rhythm, S1-S2 without murmur, no rubs or gallops, brisk capillary refill, no edema LUNGS: clear to auscultation bilaterally, no coarseness crackles or wheezing, no cough present CHEST: Symmetrical movement, no accessory muscle use ABDOMEN: Soft, no distention, no abdominal tenderness on palpation, no guarding or peritoneal signs, no organomegaly, active bowel tone, indwelling Duran catheter with cloudy urine. EXTREMITIES: moves all extremities, strength is 5/5, no deformities. NEUROLOGIC: Patient is awake and agitated, not responsive to questions, mumbling with unintelligible words. PSYCH: Agitated, not interacting with the environment. Objective Labs Result Diagrams: 06/22/19 18:42 06/22/19 18:42 Labs: Laboratory Results - last 24 hr 06/22/19 06/22/19 06/22/19 15:10 18:42 18:42 WBC 10.9 RBC 3.65 L Hgb 11.2 L Hct 33.1 L MCV 90.7 MCH 30.8 MCHC 34.0 RDW 12.7 Plt Count 255 Neut % (Auto) 84.4 H Lymph % (Auto) 6.7 L [place] % (Auto) 8.5 Eos % (Auto) 0.2 L Baso % (Auto) 0.2 Neut # (Auto) 9200 H Lymph # (Auto) 700 L [place] # (Auto) 900 Eos # (Auto) 0 Baso # (Auto) 0 Sodium 137 Potassium 3.6 Chloride 103 Carbon Dioxide 25 BUN 22 H Creatinine 0.80 Estimated GFR > 60.0 BUN/Creatinine Ratio 27.5 H Glucose 101 Calcium 8.6 Total Bilirubin 1.7 H AST 357 H ALT 17 L Alkaline Phosphatase 56 Total Protein 6.4 Albumin 3.4 L Globulin 3.0 Albumin/Globulin Ratio 1.1 Urine Color Yellow Urine Appearance Sl cloudy Urine pH 5.5 Ur Specific [place] 1.015 Urine Protein 2+ H Urine Glucose (UA) Negative Urine Ketones 1+ H Urine Occult Blood 3+ H Urine Nitrate Positive Urine Bilirubin Negative Urine Urobilinogen 1.0 Ur Leukocyte Esterase 2+ H Urine RBC 1-5/hpf D Urine WBC 10-30/hpf H Ur Squamous Epith Cells 0-1 /hpf Amorphous Sediment 2+ Urine Bacteria Many (>30) H Granular Casts 1-5/lpf Ur Culture Indicated? Specimen cultured Assessment & Plan Assessment & Plan narrative: This is a 61-year-old male patient was entered hospice and being cared for at home following a 6 month rapid deterioration in health. Patient is admitted to hospice general inpatient care. 1. Acute metabolic encephalopathy, secondary to UTI, present on admission, active -the patient with increased confusion and agitation resulting in 3 falls within the last 24 hours. -order quetiapine 50 mg at bedtime and 50 mg every 4 hours as needed for agitation. -will treat underlying urinary tract infection. 2. Lower urinary tract infection, acute, present on admission, active -patient has history of BPH with urinary retention necessitating Duran catheter placement. -urinalysis is positive for protein, ketones, blood, nitrates, white blood cells and bacteria. -Duran catheter to be replaced. -urine as previously cultured out Staph coccus epidermidis, Klebsiella oxytoca and Serratia marcescens all of which were sensitive to Bactrim. -ordered Bactrim DS orally twice daily. 3. Advanced Parkinson's, present on admission, active. -patient has had rapid progressive deterioration over the last 6 months prompting admission to hospice. -patient has been evaluated by Neurology, records are unavailable for review. -continue carbidopa levodopa extended release 25/100 2 tablets 3 times daily. Will defer to hospice care regarding continuation or weaning of medication. 4. Elevated liver functions, acute, present on admission, active. -patient with an elevated total bilirubin at 1.7, elevated AST at 357, ALT of 17 alkaline phosphatase of 56. -elevation of this time is of unclear etiology, the patient does not appear to have pain on palpation, no vomiting and no diarrhea. -patient is hospice and at this time further investigation is deferred. The patient is admitted to the hospital under hospice general inpatient care pending the patient being able to return to his home setting. Quality VTE Deep Vein Thrombosis/Pulmonary Embolism Present on Admission: No
[2019-06-23 05:20] VITALS: BP 137/72; PULSE 107; RESP 18; TEMP 37.2; O2SAT 94
--- NOTE | 2019-06-23 06:26 | PC.NURSE ---
Addendum entered by Gema Jones R.N. 06/23/19 06:36: Per KALIN Lawton, zoilaed no IV access at this time. Original Note: Duran catheter removed at 614. Urine output was dark and yellow. New Duran catheter (16 Fr) inserted per order. Patient tolerated insertion.
[2019-06-23 07:00] VITALS: BP 137/66; PULSE 105; RESP 19; TEMP 38.1; O2SAT 94
[2019-06-23] MEDS: [UNRECOGNIZED DRUG - OTHER] 1 EACH PO (08:31)
[2019-06-23] MEDS: CARBIDOPA-LEVODOPA ER 50/200 TABLET 1 EACH PO (08:31)
[2019-06-23] MEDS: GABAPENTIN 300 MG CAPSULE 600 MG PO (08:31)
--- NOTE | 2019-06-23 09:00 | PC.NURSE ---
Patient was cued and told to slow down feeding himself, because resident stuffs his mouth full of food quickly.
--- NOTE | 2019-06-23 09:39 | PC.NURSE ---
Addendum entered by Jacinda Abdullahi R.N. 06/23/19 13:50: DC - when ambul crew arrived, oriented pt to plan to dc home, belongings and a manila folder w/dc instructions, jordon zavaleta, given and informed crew this was for pt family. Addendum entered by Jacinda Abdullahi R.N. 06/23/19 13:43: VACCINE - while Marcella in SS spoke to spouse, asked about flu vaccine and she declined for pt. Addendum entered by Jacinda Abdullahi R.N. 06/23/19 13:18: DC - per Marcella in , hospital bed has been arranged at pt home and he will be discharged via ambulance, pt own medications returned and placed in pt bag, cleaned, charlton emptied, own clothing in bag as they are soiled, dc paperwork placed in folder for family, medication list, instructions, scripts. Original Note: AM NOTE - pt awakens easily, responds to questions primarily with yeah, with longer statement speech is more garbled, healing abraisons and bruising, l hip, l knee, charlton w/small qty concentrated urine, bs coarse, sarmad hand tremors and limb stiffness with repositioning, upright for breakfast and health aid assisted with meal.
[2019-06-23] MEDS: TRIMETH/SULFA 160/800 (DS) TABLET 1 TAB PO (10:05)
[2019-06-23] MEDS: METHADONE INTENSOL 10 MG/ML ORAL.CONC 2 MG PO (10:05)
--- NOTE | 2019-06-23 10:58 | PM.DS.1 ---
History of Present Illness History of Present Illness Date Patient Seen: 06/22/19 Chief complaint: Fall, no injury noted Narrative: Written by Vladimir GAGNON: Mr. Rodney Peña is a 61-year-old male patient with history of Parkinson's disease and dementia, Creutzfeldt-Ricardo disease, BPH with indwelling Duran catheter, UTI, insomnia and constipation who presents to the ER via EMS following multiple falls at home. The patient has recently entered into hospice care due to his end-stage parkinsonism and has experience progressive deterioration and sustained 3 falls within the last 24 hours. The family has been attempting to care for the patient at home but this time is feeling they are unable to manage the patient. The patient has been previously evaluated by Neurology who discontinued benzodiazepines has worsening his dementia. He had been started on quetiapine with minimal results. The patient exhibits behavioral instability with varying levels of cooperation with care. At the time of evaluation the patient is unable to communicate effectively and family is not present for additional information. The patient is admitted to hospice general inpatient care for further evaluation and stabilization to be able to return to his home setting. Discharge Providers Provider Date of admission: 06/22/19 16:24 Discharge Date: 06/23/19 Primary care physician: Wilner Green MD Consults: 06/22/19 17:12 Consult to Dietitian, Adult Routine Comment: Reason For Exam: assessed at high risk 06/22/19 17:58 Consult to Dietitian, Adult Routine Comment: Reason For Exam: assessed at high risk Discharge provider: Rosa Metzger DO Summary Hospital Course Discharge Diagnosis: 1. Possible acute metabolic encephalopathy on chronic cognitive impairment due to neurodegenerative disease, present on admission. Active. 2. Acute catheter associated urinary tract infection, present on admission. Active. 3. Advanced Parkinson's disease with dementia and progressive neurodegenerative disease on hospice, chronic, present on admission. Stable. 4. Acute elevated liver function tests, present on admission, active. Hospital Course: Rodney Peña is a 61-year-old male with a past medical history significant for advanced Parkinson's disease with dementia and progressive neurodegenerative disease on hospice, BPH with indwelling Duran catheter and recurrent UTI's, insomnia and constipation who presented to the ED via EMS following multiple falls at home. 1. Possible acute metabolic encephalopathy on chronic cognitive impairment due to neurodegenerative disease, present on admission. Active. -Patient with increased confusion and agitation in conjunction with progressive weakness resulting in 3 falls within the last 24 hours. Acute UTI possibly contributing and will treat as below. -Continue home quetiapine 50 mg at bedtime. In addition, started quetiapine 50 mg every 4 hours as needed for agitation. -Started trazodone 25 mg daily at bedtime. 2. Acute catheter associated urinary tract infection, present on admission. Active. -Patient has history of BPH with urinary retention necessitating chronic Duran catheter. Duran catheter to be replaced. -Urinalysis grossly infected with urine culture growing as previously cultured out Staph coccus epidermidis, Klebsiella oxytoca and Serratia marcescens all of which were sensitive to Bactrim. -Continue Bactrim DS twice daily for 6 additional days to complete 7 day total course of antibiotics. Renal function stable. 3. Advanced Parkinson's disease with dementia and progressive neurodegenerative disease on hospice, chronic, present on admission. Stable. -Patient has had rapid progressive neurological deterioration over the last 6 months likely due to neurodegenerative disease in conjunction with advanced Parkinson's prompting admission to hospice. -Patient has had extensive workup by Neurology and per Dr. Aiken of hospice testing has been ambiguous but patient possibly has prion disease. Records are unavailable for review. -Continue carbidopa/levodopa extended release 25/100 2 tablets 3 times daily. Will defer to hospice care regarding continuation or weaning off of medication. -POLST form has been updated by patient's spouse and casino gaming worker to DNR/DNI, comfort care measures only, and antibiotics for comfort only. -Patient is on hospice and was admitted as hospice general inpatient to help stabilize the patient's agitation and have medical equipment delivered today. Patient has been stable and is appropriate to discharge home with hospice today. 4. Acute elevated liver function tests, present on admission, active. -Patient with an elevated total bilirubin at 1.7, elevated AST at 357, ALT of 17 alkaline phosphatase of 56. -Possibly secondary to biliary stasis of acute illness. The patient appears to be asymptomatic and does not have any pain with palpitation, nausea, vomiting, or diarrhea. -Patient is hospice and at this time and will defer further investigation. Exam Vital Signs (past 8 hours): - 06/23/19 05:20 06/23/19 07:00 Temperature 98.9 F 100.5 F H Pulse Rate 107 H 105 H Respiratory Rate 18 19 Blood Pressure 137/72 137/66 Pulse Oximetry 94 94 Oxygen Delivery Method Room Air Oxygen Flow Rate 0 Narrative Exam Narrative: General: Older gentleman lying in bed and in no acute distress, appears chronically ill and older than stated age, mildly diaphoretic, unable to converse effectively and answers inappropriately with yes and/or no to all questions. HEENT: Normocephalic, atraumatic. External ears without defect. Pupils equal, round, and reactive to light. Anicteric sclerae, moist conjunctivae, and no lid lag. Dry oral mucosa. Neck: Supple with full range of motion. No lymphadenopathy or thyromegaly. Cardiovascular: Regular rhythm, tachycardic, without murmurs, rubs, or gallops appreciated. Pulmonary: Clear to auscultation bilaterally without crackles, wheezes, or rhonchi. Normal respiratory effort with no use of accessory muscles. Abdomen: Soft, bowel sounds present, nontender, nondistended. No hepatosplenomegaly or masses appreciated. Extremities: No clubbing, cyanosis, or edema. Skin: Warm temperature, normal turgor, and normal texture; no rash, ulcers, or subcutaneous nodules appreciated. Objective Labs Result Diagrams: 06/22/19 18:42 06/22/19 18:42 Labs: Laboratory Results - last 24 hr 06/22/19 06/22/19 06/22/19 15:10 18:42 18:42 WBC 10.9 RBC 3.65 L Hgb 11.2 L Hct 33.1 L MCV 90.7 MCH 30.8 MCHC 34.0 RDW 12.7 Plt Count 255 Neut % (Auto) 84.4 H Lymph % (Auto) 6.7 L [place] % (Auto) 8.5 Eos % (Auto) 0.2 L Baso % (Auto) 0.2 Neut # (Auto) 9200 H Lymph # (Auto) 700 L [place] # (Auto) 900 Eos # (Auto) 0 Baso # (Auto) 0 Sodium 137 Potassium 3.6 Chloride 103 Carbon Dioxide 25 BUN 22 H Creatinine 0.80 Estimated GFR > 60.0 BUN/Creatinine Ratio 27.5 H Glucose 101 Calcium 8.6 Total Bilirubin 1.7 H AST 357 H ALT 17 L Alkaline Phosphatase 56 Total Protein 6.4 Albumin 3.4 L Globulin 3.0 Albumin/Globulin Ratio 1.1 Urine Color Yellow Urine Appearance Sl cloudy Urine pH 5.5 Ur Specific [place] 1.015 Urine Protein 2+ H Urine Glucose (UA) Negative Urine Ketones 1+ H Urine Occult Blood 3+ H Urine Nitrate Positive Urine Bilirubin Negative Urine Urobilinogen 1.0 Ur Leukocyte Esterase 2+ H Urine RBC 1-5/hpf D Urine WBC 10-30/hpf H Ur Squamous Epith Cells 0-1 /hpf Amorphous Sediment 2+ Urine Bacteria Many (>30) H Granular Casts 1-5/lpf Ur Culture Indicated? Specimen cultured Discharge Plan Discharge Plan Patient Disposition: Hospice - Home Discharge Med Rec/Prescriptions Prescriptions: New trazodone 50 mg Tablet 25 mg PO BEDTIME Qty: 20 RF: 0 sulfamethoxazole-trimethoprim 800-160 mg Tablet 1 tab PO BID Qty: 12 RF: 0 Continued gabapentin 300 mg capsule 600 mg PO TID RF: 0 quetiapine 50 mg tablet 50 mg PO DAILY RF: 0 sennosides [senna] 8.6 mg Tablet 8.6 - 34.4 mg PO BID PRN (Reason: Constipation) RF: 0 carbidopa-levodopa 25-100 mg tablet extended release 2 tab PO TID RF: 0 morphine concentrate 100 mg/5 mL (20 mg/mL) solution 5 mg PO Q1H PRN (Reason: pain or trouble breathing) RF: 0 lorazepam 0.5 mg tablet 0.5 - 2 mg PO Q2H PRN (Reason: anxiety/trouble breathing) RF: 0 methadone [Methadose] 10 mg/mL concentrate 2 mg PO DAILY RF: 0 clonazepam 2 mg tablet,disintegrating 2 mg PO Q4H PRN (Reason: terminal agitation) RF: 0 Nuedexta 20-10 mg capsule 1 cap PO DAILY RF: 0 quetiapine 50 mg tablet 50 mg PO Q4H PRN (Reason: Agitation) Qty: 20 RF: 0 Follow up/Referrals: Wilner Green MD [Primary Care Provider] - Provider Discharge Instructions Diet: Diet as Tolerated Diet comment: comfort eating Activity: bedbound Visit Report/Discharge Packet Instructions: End of Life Care, DI for Urinary Tract Infection (UTI), Trazodone, Sulfamethoxazole/Trimethoprim (By mouth) Discharge Data Primary Care Provider: Wilner Green Quality VTE Deep Vein Thrombosis/Pulmonary Embolism Present on Admission: No
[2019-06-23 11:00] VITALS: BP 141/73; PULSE 94; RESP 19; TEMP 36.9; O2SAT 96
[2019-06-23 13:30] VITALS: BP 141/71; PULSE 104; RESP 20; TEMP 37; O2SAT 98
--- NOTE | 2019-06-23 15:44 | CM.DPNOTE ---
Initial DCP Assessment Note: Pt is a 69 yo male, resident of [place]. Pt here under GIP inpt Hospice care, for end stage Parkinsons disease, dementia and behavioral disturbance/falls at home. Pt here for stabilization with the intent of family that he return home w/continued Hospice support. PCP: Dr Green/ Hospice medical directors Payer: Medicare/[facility] This GEAR MILLING MACHINE SET UP OPERATOR updated this morning by Dr Metzger that pt was being DC home w/ [facility], Dr Metzger in partnership w/ Dr Díaz/ [facility] today to coordinate DC and meds. This GEAR MILLING MACHINE SET UP OPERATOR spoke w/ Shop Superintendent Homa Huitron# [phone] today, she was coordinating this DCP w/pt's spouse Twila. DME was being delivered this afternoon and once the DC order was in place, Homa arranged for [facility] to pick pt up at approx 1345. This GEAR MILLING MACHINE SET UP OPERATOR alerted RN Jacinda and RN coordinator Emre re: p/u time, completed medical necessity form for BLS crew (Homa explained that this would be covered by Hospice not directly billed to Medicare) and updated spouse Twila, reviewed IMM and Twila aware and agreeable to DCP, spouse very appreciative. P: DC back home w/ [facility] to follow closely, DME delivered, via BLS for safe transport. SARAH Tran
== END 2019-06-23 14:16 | disposition hospice, home (50) | DRG 71 ==
LOC: ED 16:06 → AC 16:25
PROVIDERS: Admitting Provider Internal Medicine; Emergency Provider Nurse Practitioner Family; PCP Student in an Organized Health Care Education/Training Program; Visit Provider Internal Medicine
DX: G93.41 Metabolic encephalopathy (principal); T83.511A Infection and inflammatory reaction due to indwelling urethral catheter, initial encounter; F02.81 Dementia in other diseases classified elsewhere, unspecified severity, with behavioral disturbance; A81.00 Creutzfeldt-Jakob disease, unspecified; G20 Parkinson's disease; N40.1 Benign prostatic hyperplasia with lower urinary tract symptoms; R33.8 Other retention of urine; Z91.81 History of falling; R74.0 Nonspecific elevation of levels of transaminase and lactic acid dehydrogenase [LDH]
CPT/HCPCS: 36415; 71045; 80053; 81001; 85025; 87077; 87086; 87186; 99283; 99284